=== PATIENT | male | born 1960 | race Caucasian/White ===

== ENCOUNTER 2018-04-03 07:43 | Day surgery (SDC) | payer OTHER ==
[2018-04-01 13:08] VITALS: BMI 25.8
[~2018-04-03 07:43] MED LIST: LACTATED RINGERS 1,000 ML IV SCH; LIDOCAINE 1% 20 ML VIAL (10MG/ML) FOR IV START INTRADERMA PRN
[2018-04-03 08:50] VITALS: TEMP 97.9
[2018-04-03] MEDS ORDERED: PROPOFOL 10 MG/ML 20 ML VIAL IV ONE (09:19)
[2018-04-03] MEDS ORDERED: LIDOCAINE 1% INJ 10MG/ML (20 ML MDV) ONE (09:19)
[2018-04-03 09:44] VITALS: RESP 16
--- NOTE | 2018-04-03 09:48 | P.PCN ---
Date of Procedure: 04/03/18 Procedure(s) Performed: Procedure: Total colonoscopy. Preoperative diagnosis: Screening for neoplasia, patient has family history of colon cancer. Postoperative diagnosis: Sigmoid diverticulosis with no evidence of acute diverticulitis, strictures, polyps or cancer. Preparation: HalfLytely prep. Sedation: Was provided by anesthesia. Brief clinical history: The patient is a 57-year-old male who is scheduled for this evaluation for screening for neoplasia age being his risk factor as well as family history of colon cancer in his mother. The patient had his first exam around age 50. He has no abdominal complaints, bleeding or anemia. Procedure: With the patient on his left lateral decubitus position and after informed consent and adequate sedation, the perianal area was inspected and it did not show any fissures or fistulas. There were no masses felt on digital rectal examination. The Olympus CFH 190L video colonoscope was then inserted in the rectum in the usual fashion and advanced to the cecum. There were several diverticular orifices seen scattered in the sigmoid but I saw no evidence of acute diverticulitis or strictures. No polyps or tumors were seen. I retroflexed the endoscope in the rectum before the endoscope was withdrawn. The patient tolerated the procedure well. Plan: The patient was reassured. Discussed dietary measures. He will follow up with you as planned and I recommended repeat exam in 5 years.
[2018-04-03 10:07] VITALS: BP 125/74
[2018-04-03 10:24] VITALS: PULSE 78
== END 2018-04-03 10:32 | disposition home or self-care (01) ==
LOC: ORWHC2ENDO 07:43
DX: Z12.11 Encounter for screening for malignant neoplasm of colon (principal); K57.30 Diverticulosis of large intestine without perforation or abscess without bleeding; Z80.0 Family history of malignant neoplasm of digestive organs; F17.210 Nicotine dependence, cigarettes, uncomplicated
CPT/HCPCS: 45378; J2001; J2704

== ENCOUNTER → 2018-04-10 | Outpatient (CLI) | payer OTHER ==
--- NOTE | 2018-04-10 16:36 | FL ---
EXAMINATION TYPE: FL barium swallow DATE OF EXAM: 04/10/2018 COMPARISON: None HISTORY: Dysphasia TECHNIQUE: A double air contrast UGI study is performed. FINDINGS: Esophagus dilates to normal caliber has normal contour to the gastroesophageal junction. Gastroesopha geal junction opens to normal caliber. No intraluminal or segmental defects are evident. There is complete stripping of the esophageal bolus the horizontal drinking position. No reflux was e licited. IMPRESSIONS: 1. Normal esophagram.
== END ==
LOC: RADFLWHC 08:04
PROVIDERS: ATTEND Otolaryngology
DX: R13.10 Dysphagia, unspecified (principal)
CPT/HCPCS: 74220

== ENCOUNTER → 2018-08-14 | Outpatient (CLI) | payer OTHER ==
--- NOTE | 2018-08-14 20:56 | CONS ---
CONSULTATION DATE OF SERVICE: 08/14/2018 A 58-year-old gentleman who has been evaluated in the sleep center for possible obstructive sleep apnea-hypopnea syndrome. HISTORY OF PRESENT ILLNESS/SLEEP WAKE EVALUATION: SLEEP SCHEDULE: Patient usual sleep schedule on weekdays from 08:30 to 9:30 p.m. to 4:00 or 5 am and on weekends until 5 or 6:00 am. FALLING ASLEEP: No problems with falling asleep. No TV in the bedroom. DURING SLEEP: The patient sleeps only on the side position and even on the side, he has loud snoring and awakenings from sleep. He has some episodes of choking and nocturia. He wakes up from sleep up to 5 times and has episodes of nocturia up to 3 times. He also has kicking at night, restless legs movement, sometimes his covers out in the morning. DURING THE DAY/SLEEP WAKE EVALUATION: No history of hypnagogic hallucinations, sleep paralysis or cataplexy. Patient feels sleepy during the day. Takes naps on weekend around noon for 1 hour. Lilly Sleepiness Scale significantly increased to 13. PAST MEDICAL HISTORY: Positive for low leg problems with swelling and episodes of infection. PAST SURGICAL HISTORY: None. MEDICATIONS: None at the present time. SOCIAL HISTORY: Positive for smoking about 1-1/2 pack a day for 40 years. The patient continues to smoke. Alcohol consumption occasional socially. FAMILY HISTORY: Hypertension, heart problems, hyperlipidemia, arthritis, snoring, cancer. REVIEW OF SYSTEMS: Multiple awakenings from sleep sleepiness and tiredness during the day. PHYSICAL EXAM: gentleman without distress BP 113/64, HR 69, RR 16, height 70 inches, weight 183 pounds. Body mass index 26.25, temperature 98.6, oxygen saturation at room air 95%. Oropharynx extremely low position of soft palate. Mallampati 4. Restriction of nasal breathing. Neck Supple, no JVD. Thyroid is not palpable. LUNGS Clear to percussion and to auscultation. Good air exchange. No wheezing or rhonchi. HEART S1, S2 regular. No murmurs, gallops, or rubs. ABDOMEN Soft and nontender. Bowel sounds are present. No organomegaly appreciated. EXTREMITIES No clubbing or cyanosis. [employer] Awake, alert, and oriented X3. Cranial nerves 2 to 7 intact. There is no fasciculation or atrophy. noted. No focal deficits observed. IMPRESSION: 1. Loud snoring, awakenings with choking, extremely low position of soft palate, Mallampati 4. Sleepiness, Lilly Sleepiness Scale increased to 13. Obstructive sleep apnea-hypopnea syndrome. 2. Kicking at night and periodic limb movements. 3. Possible restless legs syndrome, symptoms of restless legs. 4. History of infection of the left leg with swelling of ankle area. 5. History of smoking for 60 pack years. PLAN: 1. Polysomnography for evaluation of patient's breathing during sleep. 2. CPAP/BiPAP titration if sleep study confirms obstructive sleep apnea-hypopnea syndrome. 3. Preferable position during sleep on the side. 4. No driving if patient feels any sleepiness. 5. I will see patient for follow up visit to explain results of testing and following plan. Thank you very much for referring this patient for consultation. Sincerely, Kiel Bangura MD, PhD, FAASM Diplomat of [employer] [employer] [facility] [place] MMODL / SOULEYMANE: [id number] /
== END ==
LOC: SLEEP 16:33
PROVIDERS: ATTEND Internal Medicine
DX: G47.33 Obstructive sleep apnea (adult) (pediatric) (principal); Z87.891 Personal history of nicotine dependence; Z86.19 Personal history of other infectious and parasitic diseases
CPT/HCPCS: 99211

== ENCOUNTER → 2020-09-14 | Outpatient (CLI) | payer OTHER ==
--- NOTE | 2020-09-14 16:34 | CTL ---
EXAMINATION TYPE: CT Low Dose Lung DATE OF EXAM ORDERED: 09/14/2020 HISTORY: Personal tobacco use. Lung cancer screening CT DLP: [address] CTDI: 2.26 mGy Automated exposure control for dose reduction was used. SCREENING VISIT: Initial COMPARISON: None TECHNIQUE: Low dose computed tomography scan was performed through the chest at 1 mm thick sections a nd reconstructed images in the coronal plane at [address] DIAGNOSTIC QUALITY: Limited, but interpretable FINDINGS: LUNG NODULES: None. LUNGS: COPD: Severity: None Fibrosis: Severity: None Lymph nodes: None Other findings: None RIGHT PLEURAL SPACE: Effusion: None Calcification: None Thickening: None Pneumothorax: None LEFT PLEURAL SPACE: Effusion: None Calcification: None Thickening: None Pneumothorax: None HEART: Heart Size: Normal Coronary calcification: None Pericardial effusion: None OTHER FINDINGS: Upper abdomen: Normal Bony thorax: Normal Supraclavicular region: Normal Other: Ascending thoracic aorta at the level the main pulmonary artery measures 3.7 cm. The main pul monary artery at the bifurcation measures 2.9 cm. IMPRESSION: No suspicious changes to suggest intrathoracic neoplasm. FOLLOW UP CT CHEST RECOMMENDATION: Follow up low-dose CT chest one year CT LUNG RAD: 1
== END | disposition home or self-care (01) ==
LOC: RADCTMAIN 15:41
PROVIDERS: ATTEND Family Medicine
DX: Z09 Encounter for follow-up examination after completed treatment for conditions other than malignant neoplasm (principal); Z87.891 Personal history of nicotine dependence
CPT/HCPCS: 71271

== ENCOUNTER 2021-08-07 13:50 | Emergency (ER) | payer OTHER ==
[2021-08-07] MEDS ORDERED: ALBUTEROL HFA INHALER INHALATION STA (14:51)
[2021-08-07] MEDS ORDERED: SODIUM CHLORIDE 0.9% 1,000 ML IV STA (14:51)
[2021-08-07] MEDS ORDERED: methylPREDNISolone SOD SUCCI 125 MG/2 ML VIAL IV STA (14:52)
[2021-08-07] MEDS ORDERED: IBUPROFEN 600 MG TAB PO STA (14:52)
[2021-08-07] MEDS ORDERED: ACETAMINOPHEN TAB 500 MG TAB PO STA (14:52)
--- NOTE | 2021-08-07 15:01 | ED ---
General Adult HPI - General Chief complaint: Shortness of Breath Stated complaint: SOB Time Seen by Provider: 08/07/21 14:20 Source: patient, RN notes reviewed, old records reviewed Mode of arrival: wheelchair Limitations: no limitations - History of Present Illness Initial comments: This is a 60-year-old male who presents to the emergency department complaining of shortness of breath and body aches as well as diarrhea. Patient states he had COVID over a year ago but he did not get vaccinated. Patient denies any fever but states he does have over the chills. Patient states he has a little bit of cough and some congestion as well per patient denies chest pain. Patient denies any abdominal pain patient denies nausea vomiting. Patient denies any leg swelling or calf tenderness. - Related Data Previous Rx's Medication Instructions Recorded Albuterol Inhaler [Ventolin Hfa 2 puff INHALATION RT-QID #18 gm 08/07/21 Inhaler] Oseltamivir [Tamiflu] 75 mg PO Q12HR #10 cap 08/07/21 predniSONE [Deltasone] 40 mg PO DAILY #8 tab 08/07/21 Allergies Allergy/AdvReac Type Severity Reaction Status Date / Time Penicillins Allergy Rash/Hives Verified 08/07/21 14:22 Review of Systems ROS Statement: Those systems with pertinent positive or pertinent negative responses have been documented in the HPI. ROS Other: All systems not noted in ROS Statement are negative. Past Medical History Past Medical History: Thyroid Disorder History of Any Multi-Drug Resistant Organisms: None Reported Additional Past Surgical History / Comment(s): COLONOSCOPY Past Anesthesia/Blood Transfusion Reactions: No Reported Reaction Past Psychological History: No Psychological Hx Reported Smoking Status: Current every day smoker Past Alcohol Use History: Occasional Past Drug Use History: None Reported - Past Family History Father Family Medical History: Cancer Additional Family Medical History / Comment(s): LEUKEMIA Mother Family Medical History: Cancer Additional Family Medical History / Comment(s): COLON General Exam - General Exam Comments Initial Comments: GENERAL: Patient is well-developed and well-nourished. Patient is nontoxic and well- hydrated and is in mild distress. ENT: Neck is soft and supple. No significant lymphadenopathy is noted. Oropharynx is clear. Moist mucous membranes. Neck has full range of motion without eliciting any pain. EYES: The sclera were anicteric and conjunctiva were pink and moist. Extraocular movements were intact and pupils were equal round and reactive to light. Eyelids were unremarkable. PULMONARY: Patient has diffuse wheezing. CARDIOVASCULAR: There is a regular rate and rhythm without any murmurs gallops or rubs. Femoral pulses are equal bilaterally ABDOMEN: Soft and nontender with normal bowel sounds. SKIN: Skin is clear with no lesions or rashes and otherwise unremarkable. NEUROLOGIC: Patient is alert and oriented x3. Cranial nerves II through XII are grossly intact. Motor and sensory are also intact. Normal speech, volume and content. Symmetrical smile. MUSCULOSKELETAL: Normal extremities with adequate strength and full range of motion. No lower extremity swelling or edema. No calf tenderness. LYMPHATICS: No significant lymphadenopathy is noted PSYCHIATRIC: Normal psychiatric evaluation. Limitations: no limitations Course Vital Signs 08/07/21 08/07/21 08/07/21 14:19 14:50 14:52 Temperature 99.5 F 101.6 F H Pulse Rate 83 Respiratory 18 20 Rate O2 Sat by Pulse 90 L Oximetry Medical Decision Making - Medical Decision Making EKG shows sinus rhythm at 80 bpm HI interval 129 QRS is 97 Q-T intervals 362 QTC is 397. Patient's EKG shows no ST segment elevation or depression. Patient's chest x-ray showed no acute abnormality. Patient received 2 puffs on an inhaler prior to discharge did improve his symptoms. Patient also received steroids. Patient had influenza A. - Lab Data Result diagrams: 08/07/21 15:08 Lab Results 08/07/21 08/07/21 08/07/21 Range/Units 14:28 15:08 15:08 WBC 5.8 (3.8-10.6) k/uL RBC 4.91 (4.30-5.90) m/uL Hgb 16.0 (13.0-17.5) gm/dL Hct 49.0 (39.0-53.0) % MCV 99.8 (80.0-100.0) fL MCH 32.5 (25.0-35.0) pg MCHC 32.6 (31.0-37.0) g/dL RDW 13.0 (11.5-15.5) % Plt Count 130 L (150-450) k/uL MPV 7.2 Neutrophils % 81 % Lymphocytes % 7 % Monocytes % 8 % Eosinophils % 1 % Basophils % 1 % Neutrophils # 4.7 (1.3-7.7) k/uL Lymphocytes # 0.4 L (1.0-4.8) k/uL Monocytes # 0.5 (0-1.0) k/uL Eosinophils # 0.0 (0-0.7) k/uL Basophils # 0.1 (0-0.2) k/uL PT 10.5 (9.0-12.0) sec INR 1.0 (<1.2) APTT 25.2 (22.0-30.0) sec Influenza Type A (PCR) Detected A (Not Detectd) Influenza Type B (PCR) Not Detected (Not Detectd) RSV (PCR) Not Detected (Not Detectd) SARS-CoV-2 (PCR) Not Detected (Not Detectd) Disposition Clinical Impression: Influenza A, Acute bronchospasm Disposition: HOME SELF-CARE Instructions (If sedation given, give patient instructions): Bronchospasm (ED) Prescriptions: predniSONE [Deltasone] 40 mg PO DAILY #8 tab Oseltamivir [Tamiflu] 75 mg PO Q12HR #10 cap Albuterol Inhaler [Ventolin Hfa Inhaler] 2 puff INHALATION RT-QID #18 gm Is patient prescribed a controlled substance at d/c from ED?: No Referrals: [facility],Clinic [Primary Care Provider] - 1-2 days Time of Disposition: 15:33
[2021-08-07 15:20] LABS: Basophils # (A) 0.1 k/uL (0-0.2); Basophils % (A) 1 %; Eosinophils % (A) 1 %; Lymphocytes # (A) 0.4 k/uL (1.0-4.8); Lymphocytes % (A) 7 %; MCH 32.5 pg (25.0-35.0); MCHC 32.6 g/dL (31.0-37.0); MCV 99.8 fL (80.0-100.0); Mean Platelet Volume 7.2; Monocytes # (A) 0.5 k/uL (0-1.0); Monocytes % (A) 8 %; Neutrophils # (A) 4.7 k/uL (1.3-7.7); Neutrophils % (A) 81 %; Platelet Count 130 k/uL (150-450); RBC 4.91 m/uL (4.30-5.90); WBC 5.8 k/uL (3.8-10.6)
[2021-08-07 15:26] LABS: Partial Thromboplastin Time 25.2 sec (22.0-30.0); Prothrombin Time 10.5 sec (9.0-12.0)
[2021-08-07 15:38] LABS: ALT 21 U/L (4-49); AST 29 U/L (17-59); African American GFR (CKD) >90 (>60 ml/min/1.73 sqM); Albumin 4.4 g/dL (3.5-5.0); Alkaline Phosphatase 69 U/L (38-126); Anion Gap 8 mmol/L; Blood Urea Nitrogen 16 mg/dL (9-20); Calcium 8.6 mg/dL (8.4-10.2); Carbon Dioxide 26 mmol/L (22-30); Chloride 100 mmol/L (98-107); Glucose 118 mg/dL (74-99); Magnesium 2.1 mg/dL (1.6-2.3); Non-African American GFR(CKD) 86 (>60 ml/min/1.73 sqM); Potassium 4.5 mmol/L (3.5-5.1); Sodium 134 mmol/L (137-145); Total Bilirubin 0.8 mg/dL (0.2-1.3)
--- NOTE | 2021-08-07 15:39 | XR ---
EXAMINATION TYPE: XR chest 2V DATE OF EXAM: 08/07/2021 COMPARISON: X-ray dated 11/18/2013 HISTORY: Difficulty breathing TECHNIQUE: Frontal and lateral views of the chest are obtained. FINDINGS: Suspected COPD changes, please correlate with pulmonary function tests. Questionable subtle infiltrat ion versus artifact in the left lower lung zone. Grossly unremarkable lungs otherwise. No sizable pleural effusion or definite pneumothorax. No cardio megaly. Degenerative changes of the lower cervical spine. IMPRESSION: As above.
[2021-08-07 16:25] VITALS: BP 112/63; PULSE 89; RESP 18; TEMP 99.5
== END 2021-08-07 16:24 | disposition home or self-care (01) ==
LOC: EC 13:50
DX: J10.1 Influenza due to other identified influenza virus with other respiratory manifestations (principal); J98.01 Acute bronchospasm; Z20.822 Contact with and (suspected) exposure to COVID-19; F17.200 Nicotine dependence, unspecified, uncomplicated
CPT/HCPCS: 36415; 71046; 80053; 83605; 83735; 84484; 85025; 85610; 85730; 87636; 93005; 94640; 96361; 96374; 99285

== ENCOUNTER 2021-08-22 21:38 | Observation (INO) | payer OTHER ==
[2021-08-22] MEDS ORDERED: HYDROmorphone 1 MG/ML 1 ML SYRINGE IVP STA (22:05)
[2021-08-22] MEDS ORDERED: ALBUTEROL NEBULIZED 2.5 MG/3 ML INHALATION STA (22:05)
[2021-08-22 22:28] LABS: Basophils % (A) 1 %; Eosinophils # (A) 0.1 k/uL (0-0.7); Eosinophils % (A) 1 %; HCT 48.8 % (39.0-53.0); HGB 15.8 gm/dL (13.0-17.5); Lymphocytes # (A) 1.9 k/uL (1.0-4.8); Lymphocytes % (A) 29 %; MCH 33.2 pg (25.0-35.0); MCHC 32.4 g/dL (31.0-37.0); MCV 102.5 fL (80.0-100.0); Macrocytosis Slight; Mean Platelet Volume 7.1; Monocytes # (A) 0.5 k/uL (0-1.0); Monocytes % (A) 8 %; Neutrophils # (A) 3.8 k/uL (1.3-7.7); Neutrophils % (A) 59 %; Platelet Count 203 k/uL (150-450); RBC 4.76 m/uL (4.30-5.90); RDW 12.9 % (11.5-15.5); WBC 6.4 k/uL (3.8-10.6)
[2021-08-22 22:36] LABS: ALT 42 U/L (4-49); AST 22 U/L (17-59); African American GFR (CKD) >90 (>60 ml/min/1.73 sqM); Albumin 4.1 g/dL (3.5-5.0); Alkaline Phosphatase 113 U/L (38-126); Anion Gap 4 mmol/L; Blood Urea Nitrogen 13 mg/dL (9-20); Calcium 8.5 mg/dL (8.4-10.2); Carbon Dioxide 31 mmol/L (22-30); Chloride 104 mmol/L (98-107); Glucose 117 mg/dL (74-99); Magnesium 2.2 mg/dL (1.6-2.3); Non-African American GFR(CKD) >90 (>60 ml/min/1.73 sqM); Potassium 4.1 mmol/L (3.5-5.1); Sodium 139 mmol/L (137-145); Total Bilirubin 0.4 mg/dL (0.2-1.3); Total Protein 6.7 g/dL (6.3-8.2)
--- NOTE | 2021-08-22 22:36 | ED ---
Chest Pain HPI - General Chief Complaint: Chest Pain Stated Complaint: IONA,Chest pain Time Seen by Provider: 08/22/21 21:50 Source: patient Mode of arrival: wheelchair Limitations: no limitations - History of Present Illness Initial Comments: This patient is a 61-year-old who presents to be evaluated for left-sided chest pain. He states that he works nights so he woke up tonight for work and noticed that he was having left-sided chest pain. It is worse when he takes a deep breath. He states that it is sharp, constant and severe. He has been having cough but states that he always has a smoker's cough. Cough is nonproductive. He is denying dyspnea. No diaphoresis, palpitations, nausea or vomiting. MD Complaint: chest pain -: minutes(s) Onset: during rest Pain Location: left chest Pain Radiation: none Severity: severe Quality: sharp Consistency: constant Improves With: nothing Worsens With: nothing Other Symptoms: cough Treatments Prior to Arrival: none - Related Data Home Medications Medication Instructions Recorded Confirmed Fluticasone/Salmeterol [Advair 1 puff PO RT-BID 08/22/21 08/22/21 250-50 Diskus] Levothyroxine Sodium [Synthroid] 50 mcg PO DAILY 08/22/21 08/22/21 Previous Rx's Medication Instructions Recorded Albuterol Inhaler [Ventolin Hfa 2 puff INHALATION RT-QID #18 gm 08/07/21 Inhaler] Allergies Allergy/AdvReac Type Severity Reaction Status Date / Time Penicillins Allergy Rash/Hives Verified 08/22/21 22:36 Review of Systems ROS Statement: Those systems with pertinent positive or pertinent negative responses have been documented in the HPI. ROS Other: All systems not noted in ROS Statement are negative. Constitutional: Denies: fever, chills ENT: Denies: congestion Respiratory: Reports: cough. Denies: dyspnea, wheezes, hemoptysis, stridor Cardiovascular: Reports: chest pain. Denies: palpitations, orthopnea, edema, syncope Gastrointestinal: Denies: abdominal pain, nausea, vomiting, diarrhea Genitourinary: Denies: dysuria, hematuria Musculoskeletal: Denies: back pain Skin: Denies: rash Neurological: Denies: headache, weakness EKG Findings - EKG Results: EKG: interpreted by JATIN HAWKISNL, sinus rhythm (70 bpm), normal axis, normal QRS, normal ST/T, no acute changes Past Medical History Past Medical History: Thyroid Disorder History of Any Multi-Drug Resistant Organisms: None Reported Additional Past Surgical History / Comment(s): COLONOSCOPY Past Anesthesia/Blood Transfusion Reactions: No Reported Reaction Past Psychological History: No Psychological Hx Reported Smoking Status: Current every day smoker Past Alcohol Use History: Occasional Past Drug Use History: None Reported - Past Family History Father Family Medical History: Cancer Additional Family Medical History / Comment(s): LEUKEMIA Mother Family Medical History: Cancer Additional Family Medical History / Comment(s): COLON General Exam Limitations: no limitations General appearance: alert, in no apparent distress Head exam: Present: atraumatic, normocephalic Eye exam: Present: normal appearance. Absent: scleral icterus, conjunctival injection Neck exam: Present: normal inspection Respiratory exam: Present: wheezes, chest wall tenderness. Absent: respiratory distress, rales, rhonchi, stridor, accessory muscle use, decreased breath arun nds, prolonged expiratory Cardiovascular Exam: Present: regular rate, normal rhythm, normal heart sounds. Absent: systolic murmur, diastolic murmur, rubs, gallop GI/Abdominal exam: Present: soft. Absent: distended, tenderness, guarding, rebound, rigid, mass Extremities exam: Present: normal inspection, normal capillary refill. Absent: pedal edema, calf tenderness Back exam: Present: normal inspection. Absent: CVA tenderness (R), CVA tenderness (L) Neurological exam: Present: alert Skin exam: Present: warm, dry, intact, normal color. Absent: rash Course Vital Signs 08/22/21 08/22/21 08/22/21 21:39 22:42 23:10 Temperature 98 F Pulse Rate 83 70 58 L Respiratory 16 Rate Blood Pressure 164/120 145/74 O2 Sat by Pulse 96 95 Oximetry 08/22/21 08/22/21 08/23/21 23:20 23:54 02:00 Temperature Pulse Rate 60 71 74 Respiratory Rate Blood Pressure 114/65 111/64 O2 Sat by Pulse 95 Oximetry Critical Care Time Critical Care Time: Yes (35 minutes) Disposition Clinical Impression: Pulmonary embolism Disposition: ADMITTED IP TO THIS HOSP Condition: Good Is patient prescribed a controlled substance at d/c from ED?: No Time of Disposition: 01:06
--- NOTE | 2021-08-22 22:48 | XR ---
EXAMINATION TYPE: XR chest 2V DATE OF EXAM: 08/22/2021 COMPARISON: 08/07/2021 HISTORY: Chest pain TECHNIQUE: 2 views FINDINGS: Heart is normal. Lungs are clear. Diaphragm is normal. Bony thorax is intact IMPRESSION: Normal chest. No change.
[2021-08-22 22:49] LABS: INR 0.9 (<1.2); Partial Thromboplastin Time 23.4 sec (22.0-30.0); Prothrombin Time 10.3 sec (9.0-12.0)
--- NOTE | 2021-08-23 00:24 | CT ---
EXAMINATION TYPE: CT chest angio for PE DATE OF EXAM: 08/22/2021 COMPARISON: None HISTORY: IONA CT DLP: 436 mGycm Automated exposure control for dose reduction was used. CONTRAST: Performed with IV Contrast, patient injected with 70 mL of Isovue 370. There are Three-D postprocessed images. Heart is normal. There is no pericardial effusion. No pleural effusion. No pneumothorax. The lungs ar e clear of consolidation. There is no evidence of a pulmonary mass. There is no mediastinal adenopathy. There are no hilar masses. There is normal contrast opacification of the pulmonary arteries. There are no filling defects. The heart size is normal. No pericardial effusion. The thoracic spine is intact. No compression fract ure. IMPRESSION: No evidence of pulmonary embolism. No suspicious pulmonary mass. Mild pulmonary emphysema. Bullous di sease seen at the lung apices.
[2021-08-23] MEDS ORDERED: HEPARIN SODIUM 1,000 UN/ML (10ML VL) IV ONE (01:18)
[2021-08-23] MEDS ORDERED: HEPARIN SODIUM 1,000 UN/ML (10ML VL) IV PRN (01:18)
[2021-08-23] MEDS ORDERED: ACETAMINOPHEN TAB 325 MG TAB PO PRN (01:23)
[2021-08-23] MEDS ORDERED: ONDANSETRON 4 MG/2 ML VIAL IVP PRN (01:23)
[2021-08-23] MEDS ORDERED: NALOXONE 0.4 MG/ML 1 ML VIAL IV PRN (01:23)
[2021-08-23] MEDS ORDERED: HYDROmorphone 1 MG/ML 1 ML SYRINGE IVP STA (01:29)
[2021-08-23] MEDS ORDERED: HEPARIN SOD,PORK IN 0.45% NACL 25,000 UNIT in 0.45% NACL 1 250ML.BAG IV SCH (01:30)
[2021-08-23 01:55] LABS: Basophils # (A) 0.1 k/uL (0-0.2); Basophils % (A) 1 %; Eosinophils # (A) 0.1 k/uL (0-0.7); Eosinophils % (A) 1 %; HCT 47.6 % (39.0-53.0); HGB 14.9 gm/dL (13.0-17.5); Lymphocytes # (A) 1.1 k/uL (1.0-4.8); Lymphocytes % (A) 16 %; MCHC 31.3 g/dL (31.0-37.0); MCV 102.2 fL (80.0-100.0); Monocytes # (A) 0.5 k/uL (0-1.0); Monocytes % (A) 7 %; Neutrophils # (A) 5.1 k/uL (1.3-7.7); Neutrophils % (A) 74 %; Platelet Count 169 k/uL (150-450); RBC 4.66 m/uL (4.30-5.90); RDW 12.2 % (11.5-15.5); WBC 6.9 k/uL (3.8-10.6)
[2021-08-23 02:10] LABS: INR 0.9 (<1.2); Partial Thromboplastin Time 22.7 sec (22.0-30.0)
--- NOTE | 2021-08-23 03:30 | P.HPIM ---
History of Present Illness H&P Date: 08/23/21 Patient is a 61-year-old male with a PMH of hypothyroidism, tobacco abuse, and COPD who presents to the emergency room with complaints of sudden onset of chest pain. Patient reports that he was in his usual state of health, at home when he suddenly developed severe left lateral pleuritic chest discomfort, 10 out of 10. The patient reports that the pain has been constant, acutely pleuritic in [place] ure, without associated nausea, diaphoresis, or palpitations. Reports that the pain has persisted since arrival. Denies any recent travel, lower extremity swelling, lower extremity pain. Also denies fever, chills, cough. Chest CTA in the emergency room revealed findings consistent with a pulmonary embolism with an EKG showing sinus rhythm at 70 bpm with a no ST/T-wave changes noted as reviewed by me. Laboratory evaluation was remarkable for d-dimer 2.69 with troponin less than 0.012. Review of systems: Pertinent positives and negatives as discussed in HPI, a complete review of systems was performed and all other systems are negative. Physical examination: General: non toxic, no distress, appears at stated age, normal weight Derm: no unusual rashes/lesions no unusual ecchymoses, warm, dry Head: atraumatic, normocephalic, symmetric Eyes: EOMI, no lid lag, anicteric sclera, pupils equal round reactive to light ENT: Nose and ears atraumatic, no thrush, no pharyngeal erythema Neck: No thyromegaly, no cervical lymphadenopathy, trachea midline, supple Mouth: no lip lesion, mucus membranes moist Cardiovascular: S1S2 reg, no murmur, positive posterior tibial pulse bilateral, no edema, capillary refill less than 2 seconds Lungs: CTA bilateral, no rhonchi, no rales , no accessory muscle use, left lateral chest wall tenderness Abdominal: soft, nontender to palpation, no guarding, no appreciable organomegaly, normal bowel sounds Ext: no gross muscle atrophy, muscle strength 5 out of 5 in all 4 extremities grossly, no contractures, Neuro: CN II-XI grossly intact, light touch intact all 4 extremities, finger to nose within normal limits, Psych: Alert, oriented, appropriate affect Assessment/plan Acute PE -Continue with heparin infusion -Patient would likely benefit from outpatient hematology evaluation for duration of therapy and hypercoagulable workup as PE is unprovoked -Supplemental oxygen -Pain control Chronic conditions: Hypothyroidism, COPD -Continue with home meds DVT prophylaxis -Heparin infusion The patient is admitted with an anticipated less than 2 midnight stay for evaluation of acute PE. CODE STATUS: Full code Discussed with: Patient Anticipated discharge date: In a.m. Anticipated discharge place: Home Past Medical History Past Medical History: Thyroid Disorder History of Any Multi-Drug Resistant Organisms: None Reported Additional Past Surgical History / Comment(s): COLONOSCOPY Past Anesthesia/Blood Transfusion Reactions: No Reported Reaction Past Psychological History: No Psychological Hx Reported Smoking Status: Current every day smoker Past Alcohol Use History: Occasional Past Drug Use History: None Reported - Past Family History Father Family Medical History: Cancer Additional Family Medical History / Comment(s): LEUKEMIA Mother Family Medical History: Cancer Additional Family Medical History / Comment(s): COLON Medications and Allergies Home Medications Medication Instructions Recorded Confirmed Type Albuterol Inhaler [Ventolin Hfa 2 puff INHALATION RT-QID #18 gm 08/07/21 08/22/21 Rx Inhaler] Fluticasone/Salmeterol [Advair 1 puff PO RT-BID 08/22/21 08/22/21 History 250-50 Diskus] Levothyroxine Sodium [Synthroid] 50 mcg PO DAILY 08/22/21 08/22/21 History Allergies Allergy/AdvReac Type Severity Reaction Status Date / Time Penicillins Allergy Rash/Hives Verified 08/22/21 22:36 Physical Exam Vitals: Vital Signs Temp Pulse Resp BP Pulse Ox 08/23/21 02:00 74 111/64 08/22/21 23:54 71 114/65 95 08/22/21 23:20 60 08/22/21 23:10 58 L 08/22/21 22:42 70 145/74 95 08/22/21 21:39 98 F 83 16 164/120 96 Intake and Output 08/22/21 08/22/21 08/23/21 14:59 22:59 06:59 Other: Weight 81.647 kg Results CBC & Chem 7: 08/23/21 01:39 08/22/21 22:05 Labs: Abnormal Lab Results - Last 24 Hours (Table) 08/22/21 08/22/21 08/22/21 Range/Units 22:05 22:05 22:05 MCV 102.5 H (80.0-100.0) fL D-Dimer 2.69 H (<0.60) mg/L FEU Carbon Dioxide 31 H (22-30) mmol/L Glucose 117 H (74-99) mg/dL 08/23/21 Range/Units 01:39 MCV 102.2 H (80.0-100.0) fL D-Dimer (<0.60) mg/L FEU Carbon Dioxide (22-30) mmol/L Glucose (74-99) mg/dL
[2021-08-23] MEDS: SODIUM CHLORIDE 0.9% 1,000 ML IV SCH ×3 (06:33→19:20)
[2021-08-23] MEDS: LEVOTHYROXINE 50 MCG TAB PO SCH (06:35)
[2021-08-23] MEDS: HYDROmorphone 1 MG/ML 1 ML SYRINGE IVP PRN ×2 (06:36→16:20)
[2021-08-23] MEDS: ALBUTEROL NEBULIZED 2.5 MG/3 ML INHALATION SCH ×4 (07:26→21:01)
[2021-08-23] MEDS: SYMBICORT 80-4.5 MCG INHALER INHALATION SCH ×2 (07:26→21:01)
[2021-08-23] MEDS: FAMOTIDINE 20 MG TAB PO SCH ×2 (09:17→20:51)
[2021-08-23] MEDS: APIXABAN 5 MG TAB PO SCH ×2 (12:15→20:51)
[2021-08-23] MEDS ORDERED: HYDROcodone/APAP 5-325MG 1 EACH TAB PO PRN (15:55)
--- NOTE | 2021-08-23 18:39 | P.PN ---
Subjective Progress Note Date: 08/23/21 Hospital course: Patient is a 61-year-old male with a past medical history of COPD not on home oxygen dependent, hypothyroidism, and nicotine dependence smoking 2-3 packs of cigarettes daily times greater than 40 years. Patient presented to the emergency department with chief complaint of sudden onset chest pain. He underwent full evaluation. EKG showing normal sinus rhythm at 70 bpm with no noted T-wave or ST abnormalities. Troponin negative at less than 0.012. CBC unremarkable. CMP unremarkable with the exception of hypercarbia with CO2 of 31. D-dimer elevated at 2.69. CT completed revealing linear filling defect in the left lower lobe pulmonary artery and the arterial basal segment consistent with pulmonary emboli. Chest x-ray negative for acute cardiopulmonary process. Patient started on heparin infusion and admitted under our services. IV heparin transition to oral anticoagulation with Eliquis. Echocardiogram completed and pending results. Patient does have risk factors of cigarette smoking and history of recent long car ride traveling up north 4 hours in each direction, 3 weeks ago. Physical exam: Vital signs reviewed and stable. General: Nontoxic, no distress and appears stated age. Derm: Skin warm and dry, normal coloration for ethnicity. Head: Atraumatic, normocephalic and symmetric. Eyes: EOMs intact, no lid lag, and anicteric sclera Mouth: no lip lesions, mucus membranes moist Cardiovascular: regular rate and rhythm with normal S1S2, no murmur, positive posterior tibial pulses bilaterally, and cap refill < 2 seconds. Lungs: Respirations even, regular, and unlabored on room air. Lungs CTA bilaterally, no rhonchi, no rales, no wheezing, and no accessory muscle usage. Abdominal: soft, nontender to palpation, no guarding, no appreciable organomegaly Ext: ROM intact. No gross muscle atrophy, no edema, no contractures. Left lower extremity 1-2+ pitting edema. Neuro: Speech clear, face symmetrical and CN II-XII grossly intact with no noted focal neuro deficits Psych: Alert and oriented to person, place, time, and situation. Appropriate and pleasant affect. Assessment and Plan of Care: Acute PE - IV heparin transitioned to oral anticoagulation with Eliquis. -Recommend outpatient hematology after discharge. -Symptomatic care and pain management. -Consult pulmonary -Doppler left lower extremity secondary to swelling. COPD with ongoing tobacco use -Continue with Advair and duo nebs as needed. -Recommend smoking cessation. Hypothyroidism -Continue daily medication regimen with levothyroxine. CODE STATUS: Full code DVT prophylaxis: Jose Discussed with: Patient and RN Anticipated discharge date: Tomorrow morning Anticipated discharge place: Home A total of 37 minutes was spent on the care of this complex patient more than 50% of the time was spent in counseling and care coordination. Antione Grissom NP rendered care for this patient independently, reviewed the findings and plan as documented in the note above. I did not physically speak with or examine the patient on this date. Objective - Vital Signs Vital signs: Vital Signs Temp 98 F 08/22/21 21:39 Pulse 58 L 08/23/21 15:31 Resp 18 08/23/21 10:45 BP 95/63 08/23/21 10:45 Pulse Ox 96 08/23/21 10:45 FiO2 Intake & Output 08/22/21 08/23/21 08/23/21 18:59 06:59 18:59 Intake Total 94.544 Balance 94.544 Weight 81.647 kg Intake: Intake, IV Titration 94.544 Amount Heparin Sod,Pork in 0.45% 94.544 NaCl 25,000 unit In 0.45 % NaCl 1 250ml.bag @ 18 UNITS/KG/HR 14.696 mls/hr IV .[id number] [facility] Rx#: [id number] - Labs CBC & Chem 7: 08/23/21 01:39 08/22/21 22:05 Labs: Abnormal Lab Results - Last 24 Hours (Table) 08/22/21 08/22/21 08/22/21 Range/Units 22:05 22:05 22:05 MCV 102.5 H (80.0-100.0) fL APTT (22.0-30.0) sec D-Dimer 2.69 H (<0.60) mg/L FEU Carbon Dioxide 31 H (22-30) mmol/L Glucose 117 H (74-99) mg/dL 08/23/21 08/23/21 Range/Units 01:39 07:44 MCV 102.2 H (80.0-100.0) fL APTT 74.7 H (22.0-30.0) sec D-Dimer (<0.60) mg/L FEU Carbon Dioxide (22-30) mmol/L Glucose (74-99) mg/dL
[2021-08-23] MEDS: NICOTINE 21MG/24HR PATCH TRANSDERM SCH (19:20)
--- NOTE | 2021-08-23 21:22 | US ---
EXAMINATION TYPE: US venous doppler duplex LE LT DATE OF EXAM: 08/23/2021 7:46 PM COMPARISON: CT 08/22/21 CLINICAL HISTORY: LLE edema. Acute PE, patient has left lower extremity pain SIDE PERFORMED: Left TECHNIQUE: The lower extremity deep venous system is examined utilizing real time linear array sonog violeta with graded compression, doppler sonography and color-flow sonography. VESSELS IMAGED: Common Femoral Vein Deep Femoral Vein Greater Saphenous Vein * Femoral Vein Popliteal Vein Small Saphenous Vein * Proximal Calf Veins (* superficial vessels) Left Leg: Superficial thrombus within the left GSV below the knee. IMPRESSION: No evidence of deep vein thrombosis. There are some superficial vein thrombosis in the lo ng saphenous vein.
[2021-08-24] MEDS: SODIUM CHLORIDE 0.9% 1,000 ML IV SCH ×2 (00:04→02:40)
[2021-08-24 05:15] VITALS: RESP 18
[2021-08-24] MEDS: LEVOTHYROXINE 50 MCG TAB PO SCH (05:50)
[2021-08-24] MEDS: ALBUTEROL NEBULIZED 2.5 MG/3 ML INHALATION SCH ×3 (07:35→15:01)
[2021-08-24] MEDS: SYMBICORT 80-4.5 MCG INHALER INHALATION SCH (07:35)
[2021-08-24] MEDS: NICOTINE 21MG/24HR PATCH TRANSDERM SCH (08:43)
[2021-08-24] MEDS: APIXABAN 5 MG TAB PO SCH (08:43)
[2021-08-24] MEDS: FAMOTIDINE 20 MG TAB PO SCH (08:43)
--- NOTE | 2021-08-24 10:18 | CA ---
Transthoracic Echo Report Name: Charli Sanchez Age: 61 Gender: M : 1960 Exam Date: 08/23/2021 13:22 Exam Location: [facility] Ht (in): 71 Wt (lb): 180 Ordering Physician: Antione Grissom Attending/Referring Phys: Information Management Manager Lisa Baumann RDCS Procedure CPT: Indications: PE Cardiac Hx: Technical Quality: Very technically difficult study Contrast 1: Lumason Total Dose (mL): 1 Contrast 2: Total Dose (mL): MEASUREMENTS (Male / Female) Normal Values 2D ECHO LV Diastolic Diameter PLAX 3.9 cm 4.2 - 5.9 / 3.9 - 5.3 cm LV Systolic Diameter PLAX 2.9 cm IVS Diastolic Thickness 1.1 cm 0.6 - 1.0 / 0.6 - 0.9 cm LVPW Diastolic Thickness 1.3 cm 0.6 - 1.0 / 0.6 - 0.9 cm LV Relative Wall Thickness 0.6 M-MODE Aortic Root Diameter MM 3.5 cm LA Systolic Diameter MM 2.8 cm LA Ao Ratio MM 0.8 MV E Point Septal Separation 2.0 cm AV Cusp Separation MM 2.4 cm DOPPLER AV Peak Velocity 87.8 cm/s AV Peak Gradient 3.1 mmHg MV Area PHT 1.8 cm??? MR Peak Velocity 89.6 cm/s MR Peak Gradient 3.2 mmHg Mitral E Point Velocity 60.1 cm/s Mitral A Point Velocity 51.9 cm/s Mitral E to A Ratio 1.2 MV Deceleration Time 417.3 ms TR Peak Velocity 72.3 cm/s TR Peak Gradient 2.1 mmHg Right Ventricular Systolic Press 7.1 mmHg FINDINGS Left Ventricle Mildly increased septal wall thickness. Left ventricular ejection fraction is estimated at 55-60_ %. Left ventricle not well visualized utilized lumason. Right Ventricle Right ventricle not well visualized. Unable to do RV strain. Right ventricular systolic pressure within normal limits. Right Atrium Right atrium not well visualized. Left Atrium Normal left atrial size. Mitral Valve Mitral valve not well visualized. Trace mitral regurgitation. Aortic Valve Aortic valve not well visualized. No aortic regurgitation. Tricuspid Valve Tricuspid valve not well visualized. Pulmonic Valve Pulmonic valve not well visualized. Pericardium Unable to visualize Aorta Aortic root and proximal ascending aorta not well visualized. CONCLUSIONS #1. Technically suboptimal study with full visualization of cardiac structure and function. #2. Even with use of lumison, the left ventricle cannot be adequately visualized. Function appears to be fair. Previewed by: Dr. Kailey Sweeeny MD (Electronically Signed) Final Date: 24 August 2021 10:17
--- NOTE | 2021-08-24 12:49 | P.CNPUL ---
History of Present Illness Consult date: 08/24/21 Reason for consult: pulmonary embolism History of present illness: 61-year-old male patient, a chronic smoker with known history of COPD, being f [facility]owed [facility]. The patient came into the hospital because of 2-3 week history of a pleuritic left-sided chest pain that was progressively getting worse along with some limited shortness of breath. The patient was found to be hypoxemic. D-dimer was elevated at 2.69. Troponin was at 0.12. CT angiogram of the chest was done and the patient was found to have several segmental pulmonary emboli the left lower lobe along with some background COPD changes. The patient also had a Doppler of the lower extremity that showed no evidence of any DVT. There was some superficial vein thrombosis in the long saphenous vein. The patient was started on IV heparin. Echocardiogram was done and the patient has a ejection fraction of 55-60%. No evidence of any pulmonary hypertension. The patient remains hemodynamically stable. No identifiable risk factors regarding this pulmonary embolism. No sedentary lifestyle and the patient works for a [email or web address] company and is quite active. No trauma. No recent orthopedic surgeries. No sedentary lifestyle. No travels. No leg swelling. His symptoms are improving for now. He is on 2 L of O2 nasal cannula and he will be checked on room air. No personal or family history of DVT or pulmonary embolism. Review of Systems All systems: negative Eyes: denies as per HPI, denies blurred vision, denies bulging eye, denies decreased vision, denies diplopia, denies discharge, denies dry eye, denies irritation, denies itching, denies pain, denies photophobia, denies loss of peripheral vision, denies loss of vision, denies tunnel vision/blind spots Ears: deny: decreased hearing, ear discharge, earache, tinnitus Ears, nose, mouth and throat: Reports as per HPI Breasts: absent: as per HPI, gynecomastia Cardiovascular: Reports as per HPI, Reports shortness of breath Respiratory: Reports pleurisy Gastrointestinal: Reports as per HPI Genitourinary: Reports as per HPI Musculoskeletal: Reports as per HPI Musculoskeletal: absent: ankle pain, ankle stiffness, ankle swelling Integumentary: Reports as per HPI Neurological: Reports as per HPI Psychiatric: Reports as per HPI Endocrine: Reports as per HPI Hematologic/Lymphatic: Reports as per HPI Allergic/Immunologic: Reports as per HPI Past Medical History Past Medical History: COPD, Pulmonary Embolus (PE), Thyroid Disorder History of Any Multi-Drug Resistant Organisms: None Reported Additional Past Surgical History / Comment(s): COLONOSCOPY Past Anesthesia/Blood Transfusion Reactions: No Reported Reaction Past Psychological History: No Psychological Hx Reported Smoking Status: Former smoker Past Alcohol Use History: Occasional Additional Past Alcohol Use History / Comment(s): SMOKES ABOUT 1 PPD SINCE AGE 18 Past Drug Use History: None Reported - Past Family History Father Family Medical History: Cancer Additional Family Medical History / Comment(s): LEUKEMIA Mother Family Medical History: Cancer Additional Family Medical History / Comment(s): COLON Medications and Allergies Home Medications Medication Instructions Recorded Confirmed Type Albuterol Inhaler [Ventolin Hfa 2 puff INHALATION RT-QID #18 gm 08/07/21 08/22/21 Rx Inhaler] Fluticasone/Salmeterol [Advair 1 puff PO RT-BID 08/22/21 08/22/21 History 250-50 Diskus] Levothyroxine Sodium [Synthroid] 50 mcg PO DAILY 08/22/21 08/22/21 History Apixaban [Eliquis Starter Pack 5 - 10 mg PO DIRECTED 30 Days 08/23/21 Rx (for VTE)] #1 each Allergies Allergy/AdvReac Type Severity Reaction Status Date / Time Penicillins Allergy Rash/Hives Verified 08/22/21 22:36 Physical Exam Vitals: Vital Signs Temp Pulse Pulse Pulse Resp BP Pulse Ox 08/24/21 12:34 98 08/24/21 11:49 72 08/24/21 11:38 69 08/24/21 07:46 58 L 08/24/21 07:35 78 97 08/24/21 07:00 97.9 F 58 L 18 123/69 99 08/24/21 02:36 97.5 F L 50 L 18 122/69 99 08/23/21 21:13 64 08/23/21 21:04 60 08/23/21 20:27 109/52 96 08/23/21 19:36 98.0 F 69 22 150/76 93 L 08/23/21 17:05 98.1 F 64 16 119/72 95 08/23/21 15:31 58 L 08/23/21 15:19 60 Intake and Output 06/08/22 06/09/22 06/09/22 22:59 06:59 14:59 Intake Total 358 Balance 358 Intake: Oral 358 Other: Voiding Method Toilet # Voids 1 2 Weight 81.647 kg Gen. appearance, comfortable on 2 L O2 nasal cannula Head exam was generally normal. There was no scleral icterus or corneal arcus. Mucous membranes were moist. Neck was supple and without jugular venous distension, thyromegaly, or carotid bruits. Carotids were easily palpable bilaterally. There was no adenopathy. Lungs sounds are diminished and the patient has scattered expiratory wheezes throughout the lung nina bilaterally Cardiac exam revealed the PMI to be normally situated and sized. The rhythm was regular and no extrasystoles were noted during several minutes of auscultation. The first and second heart sounds were normal and physiologic splitting of the second heart sound was noted. There were no murmurs, rubs, clicks, or gallops. Abdominal exam revealed normal bowel sounds. The abdomen was soft, non-tender, and without masses, organomegaly, or appreciable enlargement of the abdominal aorta. Examination of the extremities revealed easily palpable radial, femoral and pedal pulses. There was no cyanosis, clubbing or edema. Skin examination shows a psoriatic patch over the shins most on the left. There is also skin patches of psoriasis over the elbows bilaterally. Neurologically, the patient is awake and alert and the patient does not have any focal neurological deficit. Cranial nerves are essentially intact. Results - Laboratory Findings CBC and BMP: 08/23/21 01:39 08/22/21 22:05 PT/INR, D-dimer PT 10.0 sec (9.0-12.0) 08/23/21 01:23 INR 0.9 (<1.2) 08/23/21 01:23 D-Dimer 2.69 mg/L FEU (<0.60) H 08/22/21 22:05 Abnormal lab findings: Abnormal Labs 08/22/21 08/22/21 08/22/21 22:05 22:05 22:05 MCV 102.5 H APTT D-Dimer 2.69 H Carbon Dioxide 31 H Glucose 117 H 08/23/21 08/23/21 01:39 07:44 MCV 102.2 H APTT 74.7 H D-Dimer Carbon Dioxide Glucose - Diagnostic Findings Chest x-ray: image reviewed Assessment and Plan Plan: Acute unprovoked left-sided pulmonary embolism, hemodynamically stable without any RV strain, treated with IV heparin currently on anticoagulation with Eliquis Superficial left lower extremity DVT involving the long saphenous vein Acute pleuritic left-sided chest pain secondary to above Acute worsening shortness of breath secondary to above COPD with bullous changes involving the upper lobes bilaterally secondary to chronic smoking Smoker Hypothyroidism Plan This is a unprovoked pulmonary embolism. The patient will need at least 6 months of anticoagulation. May need a hypercoagulable workup and further decision if he'll be a candidate for lifelong anticoagulation and this can be done also on outpatient basis. For now is doing well. Evaluate his oxygen needs and wean down the FiO2 as tolerated. No evidence of any RV strain. Smoking cessation counseling was done. Continue Advair an outpatient basis regarding his COPD and Ventolin rescue inhaler. No identifiable risk factors for DVT or pulmonary embolism.
[2021-08-24 13:52] VITALS: BP 122/66; TEMP 98.2
[2021-08-24 15:12] VITALS: PULSE 72
--- NOTE | 2021-08-24 15:43 | P.DS ---
Providers Date of admission: 08/23/21 01:23 Expected date of discharge: 08/24/21 Attending physician: Carolina Keith MD Consults: 08/23/21 18:34 Consult Physician Routine Consulting Provider: Orville San Consult Reason/Comments: PE Do you want consulting provider notified?: Yes Primary care physician: [facility] Hospital Course: Discharge Diagnosis: Acute PE, with no evidence of right ventricular strain. Pt discharged home on oral anticoagulation with Eliquis and to follow up outpatient with pulmonology and recommend undergoing outpatient hypercoagulable workup with hematology. Superficial thrombosis of greater saphenous vein COPD with ongoing tobacco use. Continue with Advair and duo nebs as needed. Recommend smoking cessation. Hypothyroidism. Continue daily medication regimen with levothyroxine. Hospital Course: Patient is a 61-year-old male with a past medical history of COPD not on home oxygen dependent, hypothyroidism, and nicotine dependence smoking 2-3 packs of cigarettes daily times greater than 40 years. Patient presented to the emergency department with chief complaint of sudden onset chest pain. He underwent full evaluation. EKG showing normal sinus rhythm at 70 bpm with no noted T-wave or ST abnormalities. Troponin negative at less than 0.012. CBC unremarkable. CMP unremarkable with the exception of hypercarbia with CO2 of 31. D-dimer elevated at 2.69. CT completed revealing linear filling defect in the left lower lobe pulmonary artery and the arterial basal segment consistent with pulmonary emboli. Chest x-ray negative for acute cardiopulmonary process. Patient started on heparin infusion and admitted under our services. IV heparin transition to oral anticoagulation with Eliquis. Echocardiogram completed revealing normal EF of 55-60%. Left lower extremity Doppler revealing superficial thrombus within the left greater saphenous vein. Patient does have risk factors of cigarette smoking and history of recent long car ride traveling up north 4 hours in each direction, 3 weeks ago. Patient seen and evaluated by pulmonology during hospitalization. Patient is doing well on room air maintaining SpO2 of 97%. Patient is medically stable for discharge at this time, patient to follow-up outpatient with pulmonary and recommend undergoing outpatient hypercoagulable workup with hematology. Patient medically stable for discharge at this time. Recommend smoking cessation. Physical exam: Vital signs reviewed and stable. General: Nontoxic, no distress and appears stated age. Derm: Skin warm and dry, normal coloration for ethnicity. Head: Atraumatic, normocephalic and symmetric. Eyes: EOMs intact, no lid lag, and anicteric sclera Mouth: no lip lesions, mucus membranes moist Cardiovascular: regular rate and rhythm with normal S1S2, no murmur, positive posterior tibial pulses bilaterally, and cap refill < 2 seconds. Lungs: Respirations even, regular, and unlabored on room air. Lungs CTA bilaterally, no rhonchi, no rales, no wheezing, and no accessory muscle usage. Abdominal: soft, nontender to palpation, no guarding, no appreciable organomegaly Ext: ROM intact. No gross muscle atrophy, no edema, no contractures. Left lower extremity 1-2+ pitting edema. Neuro: Speech clear, face symmetrical and CN II-XII grossly intact with no noted focal neuro deficits Psych: Alert and oriented to person, place, time, and situation. Appropriate and pleasant affect. A total of 35 minutes of time were spent preparing this complex discharge summary. Pt was discharged on 08/24/21 at 3:31 PM. I reviewed the documentation as provided by the LOPEZ above, who is the original author of this note. I agree with the documented assessment and plan, with the following changes: none Patient Condition at Discharge: Stable Plan - Discharge Summary Discharge Rx Participant: No New Discharge Prescriptions: New Apixaban [Eliquis Starter Pack (for VTE)] 5 - 10 mg PO DIRECTED 30 Days #1 each HYDROcodone/APAP 7.5-325MG [Barnum 7.5-325] 1 tab PO Q4H PRN 3 Days #18 tab PRN Reason: Pain Continue Fluticasone/Salmeterol [Advair 250-50 Diskus] 1 puff PO RT-BID Levothyroxine Sodium [Synthroid] 50 mcg PO DAILY Albuterol Inhaler [Ventolin Hfa Inhaler] 2 puff INHALATION RT-QID #18 gm Discharge Medication List Albuterol Inhaler [Ventolin Hfa Inhaler] 2 puff INHALATION RT-QID #18 gm 08/07/21 [Rx] Fluticasone/Salmeterol [Advair 250-50 Diskus] 1 puff PO RT-BID 08/22/21 [History] Levothyroxine Sodium [Synthroid] 50 mcg PO DAILY 08/22/21 [History] Apixaban [Eliquis Starter Pack (for VTE)] 5 - 10 mg PO DIRECTED 30 Days #1 each 08/23/21 [Rx] HYDROcodone/APAP 7.5-325MG [Barnum 7.5-325] 1 tab PO Q4H PRN 3 Days #18 tab 08/24/21 [Rx] Follow up Appointment(s)/Referral(s): Qamar Rhodes DO [Doctor of Osteopathic Medicine] - 10 Days Shiva Domingo MD [STAFF PHYSICIAN] - 1 Week [facility] [Primary Care Provider] - 1-2 days Activity/Diet/Wound Care/Special Instructions: RN PLEASE FAX DISCHARGE MEDICATION LIST TO [facility] Activity: As tolerated. Take breaks as needed. Diet: Heart healthy and carb consistent diet. Avoid salts, or foods with hidden salts such as canned or boxed foods and frozen dinners. Extra salt makes your heart work harder and traps the fluid in your body for longer. Special Instructions: Take all of your medications as directed and remember to keep all of your doctor's appointments and follow-up as needed. Please ensure that you follow up with [place] clinic for age-appropriate cancer sc reenings. You are also being discharged home on a blood thinner,Eliquis. This is very important to take daily as directed until otherwise advised by your remelt furnace expediter, Dr. Rhodes Being that you are being placed on a blood thinner it is very important to watch for any signs of bleeding and notify your doctor immediately if you notice any bleeding. It is also important to remove any trip hazards such as rugs or loose extension cords from your home to prevent unnecessary falls and if you do experience a fall or head injury, it is extremely important to be evaluated by a medical provider immediately to ensure no internal bleeding. Recommend smoking cessation and as discussed, with long car rides it is important to make frequent stops to get out and stretch your legs and ambulate. Thank you for allowing us to participate in your care, it was truly a pleasure having you for our patient!!! Discharge Disposition: HOME SELF-CARE
== END 2021-08-24 17:35 | disposition home or self-care (01) ==
LOC: EC 21:38 → 6NMEDSUR 08-23 01:23
PROVIDERS: ADMIT Internal Medicine; ATTEND Internal Medicine
DX: I26.99 Other pulmonary embolism without acute cor pulmonale (principal); I82.812 Embolism and thrombosis of superficial veins of left lower extremity; J44.9 Chronic obstructive pulmonary disease, unspecified; E03.9 Hypothyroidism, unspecified; F17.210 Nicotine dependence, cigarettes, uncomplicated; Z79.890 Hormone replacement therapy; Z79.51 Long term (current) use of inhaled steroids; Z79.899 Other long term (current) drug therapy; Z88.0 Allergy status to penicillin; Z98.890 Other specified postprocedural states; Z80.0 Family history of malignant neoplasm of digestive organs; Z80.6 Family history of leukemia
CPT/HCPCS: 96361 ×2; 96376; 96365; 96366; 96375; 99291; 36415; 94640 ×5; 94760; 93005; 93306; 85379; 80053; 83735; 84484; 85025 ×2; 85610 ×2; 85730 ×2; 71046; 93971; 71275; G0378 ×2; S4990 ×2; J1644 ×2; J1170 ×2; Q9950; Q9967

== ENCOUNTER 2021-10-11 12:41 | Emergency (ER) | payer OTHER ==
[2021-10-11 12:49] VITALS: RESP 18
[2021-10-11] MEDS ORDERED: KETOROLAC 15 MG/ML 1 ML VIAL IM STA (14:32)
[2021-10-11] MEDS ORDERED: DEXAMETHASONE SOD PHOSPHATE 10 MG/ML 1 ML VIAL IM STA (14:32)
[2021-10-11] MEDS ORDERED: ORPHENADRINE 30 MG/ML 2 ML VIAL IM STA (14:32)
[2021-10-11] MEDS ORDERED: HYDROcodone/APAP 7.5-325MG 1 EACH TAB PO ONE (15:58)
--- NOTE | 2021-10-11 16:20 | XR ---
EXAMINATION TYPE: XR lumbar spine 2 or 3V DATE OF EXAM: 10/11/2021 CLINICAL HISTORY: pain TECHNIQUE: Three views of the lumbar spine are submitted. COMPARISON: None. FINDINGS: There are 5 lumbar type vertebral bodies identified. The lumbar spine shows satisfactory alignment w ithout evidence of acute fracture or dislocation. Vertebral body heights are within normal limits. Mi ld degenerative disc disease at L5-S1 with disc space narrowing and endplate sclerosis. Multilevel fa cet arthropathy. The overlying soft tissue appears unremarkable. IMPRESSION: No acute fracture or dislocation is seen in the lumbar spine. Mild degenerative disc disease L5-S1.
[2021-10-11] MEDS ORDERED: HYDROmorphone 1 MG/ML 1 ML SYRINGE IM STA (17:18)
[2021-10-11] MEDS ORDERED: ACET/COD 300 MG/30 MG STARTER PACK 6 TAB BTL PO STA (18:08)
--- NOTE | 2021-10-11 18:08 | ED ---
Back Pain HPI - General Chief Complaint: Back Pain/Injury Stated Complaint: Back pain Time Seen by Provider: 10/11/21 14:24 Source: patient Limitations: no limitations - History of Present Illness Initial Comments: Patient is a 61-year-old male presenting with chief complaint of lower back pain. Patient states it began this morning after getting out of bed. 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 Patient denies any radiation of the pain down his legs. He admits to pain with range of motion and ambulation. He denies any loss of bowel or bladder control or saddle paresthesia. Denies any numbness, tingling, weakness. He denies any dysuria or hematuria. Denies any abdominal pain, fever, chills, nausea, vomiting, diarrhea, constipation, hematochezia, melena. - Related Data Home Medications Medication Instructions Recorded Confirmed Fluticasone Propion/Salmeterol 1 puff PO RT-BID 08/22/21 10/11/21 [Advair 250-50 Diskus] Levothyroxine Sodium [Synthroid] 50 mcg PO DAILY 08/22/21 10/11/21 Apixaban [Eliquis] 5 mg PO BID 10/11/21 10/11/21 Previous Rx's Medication Instructions Recorded Albuterol Inhaler [Ventolin Hfa 2 puff INHALATION RT-QID #18 gm 08/07/21 Inhaler] HYDROcodone/APAP 7.5-325MG [[place] 1 tab PO Q4H PRN 3 Days #18 tab 08/24/21 7.5-325] Cyclobenzaprine [Flexeril] 10 mg PO TID PRN #20 tab 10/11/21 Allergies Allergy/AdvReac Type Severity Reaction Status Date / Time Penicillins Allergy Rash/Hives Verified 10/11/21 16:16 Review of Systems ROS Statement: Those systems with pertinent positive or pertinent negative responses have been documented in the HPI. ROS Other: All systems not noted in ROS Statement are negative. Past Medical History Past Medical History: COPD, Pulmonary Embolus (PE), Thyroid Disorder History of Any Multi-Drug Resistant Organisms: None Reported Past Surgical History: No Surgical Hx Reported Additional Past Surgical History / Comment(s): COLONOSCOPY Past Anesthesia/Blood Transfusion Reactions: No Reported Reaction Past Psychological History: No Psychological Hx Reported Smoking Status: Former smoker Past Alcohol Use History: Occasional Past Drug Use History: None Reported - Past Family History Father Family Medical History: Cancer Additional Family Medical History / Comment(s): LEUKEMIA Mother Family Medical History: Cancer Additional Family Medical History / Comment(s): COLON General Exam Limitations: no limitations General appearance: alert, in no apparent distress Head exam: Present: atraumatic, normocephalic, normal inspection Eye exam: Present: normal appearance, EOMI. Absent: scleral icterus, periorbital swelling Neck exam: Present: normal inspection Respiratory exam: Present: normal lung sounds bilaterally. Absent: respiratory distress, wheezes, rales, rhonchi, stridor Cardiovascular Exam: Present: regular rate, normal rhythm, normal heart sounds. Absent: systolic murmur, diastolic murmur, rubs, gallop, clicks Extremities exam: Present: normal inspection, full ROM Back exam: Present: normal inspection, muscle spasm, paraspinal tenderness. Absent: full ROM (Negative secondary to pain), vertebral tenderness Neurological exam: Present: alert, oriented X3, CN II-XII intact Psychiatric exam: Present: normal affect, normal mood Course Vital Signs 10/11/21 12:47 Temperature 98.4 F Pulse Rate 67 Respiratory 18 Rate Blood Pressure 139/77 O2 Sat by Pulse 97 Oximetry Medical Decision Making - Medical Decision Making Patient is a 61-year-old male presenting with chief complaint of low back pain. He denies any red flag symptoms. On examination there is pain with range of motion in paraspinal muscle tenderness bilaterally. X-ray shows no osseous abnormality, does show degenerative disc disease. Patient is given pain medication. Instructed to follow-up with PCP. Report back to ER if any new or worsening symptoms. Discussed return parameters and answered all questions. Patient conveyed verbal understanding and agreed to the plan. I discussed this case with my attending Dr. Corea Disposition Clinical Impression: Strain of lumbar region Disposition: HOME SELF-CARE Condition: Good Instructions (If sedation given, give patient instructions): Acute Low Back Pain (ED), Lower Back Exercises (ED) Additional Instructions: Follow-up with PCP in one to 2 days. Report back to ER with any new or worsening symptoms. Take medication as prescribed. Medication may cause drowsiness, do not take before driving or operating heavy machinery. Prescriptions: Cyclobenzaprine [Flexeril] 10 mg PO TID PRN #20 tab PRN Reason: Spasms Is patient prescribed a controlled substance at d/c from ED?: No Referrals: [facility],Clinic [Primary Care Provider] - 1-2 days Time of Disposition: 18:07
[2021-10-11 18:49] VITALS: BP 131/76; PULSE 71; TEMP 98.6
== END 2021-10-11 18:33 | disposition home or self-care (01) ==
LOC: EC 12:41
DX: S39.012A Strain of muscle, fascia and tendon of lower back, initial encounter (principal); J44.9 Chronic obstructive pulmonary disease, unspecified; Z79.51 Long term (current) use of inhaled steroids; Z87.891 Personal history of nicotine dependence; Z72.89 Other problems related to lifestyle; Z88.0 Allergy status to penicillin
CPT/HCPCS: 93005; 72100; 99283; 96372 ×4; J1100; J2360; J1170; J1885

== ENCOUNTER → 2021-10-31 | Outpatient (CLI) | payer OTHER ==
--- NOTE | 2021-10-31 09:10 | CT ---
EXAMINATION TYPE: CT angio chest CT DLP: 576 mGycm, Automated exposure control for dose reduction was used. DATE OF EXAM: 10/31/2021 8:38 AM COMPARISON: Multiple CTs of the chest with most recent on 08/22/2021 . CLINICAL INDICATION:Male, 61 years old with history of I26.99; History of pulmonary embolism TECHNIQUE/CONTRAST: CTA scan of the thorax is performed with IV Contrast, patient injected with 100, wasted 28 ml mL of I sovue 370, pulmonary embolism protocol. MIP images are created and reviewed. FINDINGS: Pulmonary Artery: There is no evidence for a filling defect within the pulmonary vasculature to sugge st acute pulmonary embolism. The pulmonary artery is of normal size. Lungs/Pleura: No evidence of focal consolidation, pleural effusion or pneumothorax. Mild paraseptal r and centrilobular emphysema changes are seen in the lung apices. Airway: Large airways are patent. Heart: Heart is within normal limits for size.. Vasculature: No evidence of aortic aneurysm. Mediastinum: No gross evidence of adenopathy. Musculoskeletal: No acute osseous abnormalities Soft Tissues: Unremarkable. Lower neck: No significant findings. Upper Abdomen: Mild hepatic steatosis with focal fatty infiltration of segment 4a. IMPRESSION: 1. No evidence of pulmonary embolism. 2. Mild COPD.
== END | disposition home or self-care (01) ==
LOC: RADCTMAIN 08:04
PROVIDERS: ATTEND Internal Medicine Critical Care Medicine
DX: I26.99 Other pulmonary embolism without acute cor pulmonale (principal)
CPT/HCPCS: 71275; Q9967

== ENCOUNTER → 2022-09-13 | Outpatient (CLI) | payer BC, OTHER ==
--- NOTE | 2022-09-13 09:32 | US ---
EXAMINATION TYPE: US Aorta Screening DATE OF EXAM: 09/13/2022 COMPARISON: NONE CLINICAL INDICATION: Male, 62 years old with history of Z13.6 ENCOUNTER FOR SCREENING FOR CARDIOVASCU LAR D; TECHNIQUE: Multiple sonographic images of the abdominal aorta are obtained. FINDINGS: EXAM MEASUREMENTS: Abdominal Aorta: Proximal: 2.4 x 2.2cm Mid: 2.2 x 2.4cm Distal: 2.1 x 1.8cm Right Iliac: 1.3 x 1.4cm Left Iliac: 1.3 x 1.3cm No AAA seen IMPRESSION: No ultrasound evidence for abdominal aortic aneurysm.
== END | disposition home or self-care (01) ==
LOC: RADUSWWP 08:58
DX: Z13.6 Encounter for screening for cardiovascular disorders (principal)
CPT/HCPCS: 76706

== ENCOUNTER → 2022-11-01 | Outpatient (CLI) | payer OTHER ==
--- NOTE | 2022-11-01 09:56 | CTL ---
EXAMINATION TYPE: CT Low Dose Lung DATE OF EXAM ORDERED: 11/01/2022 HISTORY: Z87.891. Current smoker, 60 pack year history. Lung cancer screening CT DLP: 111.[address] CTDI: 3.0 mGy Automated exposure control for dose reduction was used. SCREENING VISIT: Follow-up COMPARISON: CT low-dose lung cancer screening 09/14/2020, CTA chest 10/31/2021, 08/22/2021 TECHNIQUE: Low dose computed tomography scan was performed through the chest at 1 mm thick sections a nd reconstructed images in multiple planes at 1 mm and [address] DIAGNOSTIC QUALITY: Satisfactory FINDINGS: LUNG NODULES: No clinically significant pulmonary nodules. LUNGS: COPD: Severity: Mild Fibrosis: Severity: None Lymph nodes: None Other findings: None RIGHT PLEURAL SPACE: Effusion: None Calcification: None Thickening: None Pneumothorax: None LEFT PLEURAL SPACE: Effusion: None Calcification: None Thickening: None Pneumothorax: None HEART: Heart Size: Normal Coronary Calcification: None Pericardial Effusion: None OTHER FINDINGS: Upper abdomen: None Bony thorax: None Supraclavicular region: None Other: None IMPRESSION: No clinically significant pulmonary nodules. CT LUNG RAD AND CT CHEST RECOMMENDATION: Lung-Rad 1 Negative: Continue annual screening with LDCT in 12 months. S Modifier (other clinically significant findings): None
== END | disposition home or self-care (01) ==
LOC: RADCTMAIN 09:28
DX: Z12.2 Encounter for screening for malignant neoplasm of respiratory organs (principal); F17.210 Nicotine dependence, cigarettes, uncomplicated
CPT/HCPCS: 71271

== ENCOUNTER 2023-01-21 21:00 | Inpatient (IN) | payer OTHER, BC ==
[2023-01-21] MEDS ORDERED: MORPHINE SULFATE 4 MG/ML SYRINGE IVP STA (21:26)
[2023-01-21] MEDS ORDERED: ACETAMINOPHEN TAB 500 MG TAB PO STA (21:26)
--- NOTE | 2023-01-21 21:29 | ED ---
General Adult HPI - General Chief complaint: Shortness of Breath Stated complaint: Side Pain, IONA Time Seen by Provider: 01/21/23 21:15 Source: patient, RN notes reviewed Mode of arrival: ambulatory Limitations: no limitations - History of Present Illness Initial comments: Patient is a pleasant 62-year-old male presents emergency department with concerns with left-sided rib discomfort. Onset of symptoms was yesterday afternoon. Patient does have occasional cough, no sputum. Patient does have some mild myalgias. No fevers at home. Patient does feel a little bit short of breath. Symptoms greatly increased with cough and deep breaths. Discomfort is left lateral chest wall/rib area. - Related Data Home Medications Medication Instructions Recorded Confirmed Levothyroxine Sodium [Synthroid] 50 mcg PO HS 08/22/21 01/21/23 Albuterol Inhaler [Ventolin Hfa 2 puff INHALATION RT-QID PRN 01/21/23 01/21/23 Inhaler] Allergies Allergy/AdvReac Type Severity Reaction Status Date / Time Penicillins Allergy Rash/Hives Verified 01/21/23 22:41 Review of Systems ROS Statement: Those systems with pertinent positive or pertinent negative responses have been documented in the HPI. ROS Other: All systems not noted in ROS Statement are negative. Constitutional: Denies: fever Eyes: Denies: eye pain ENT: Denies: ear pain Respiratory: Reports: as per HPI, cough, dyspnea Cardiovascular: Reports: as per HPI Endocrine: Denies: fatigue Gastrointestinal: Denies: abdominal pain Genitourinary: Denies: dysuria Musculoskeletal: Denies: back pain Skin: Denies: rash Neurological: Denies: weakness Past Medical History Past Medical History: COPD, Pulmonary Embolus (PE), Thyroid Disorder History of Any Multi-Drug Resistant Organisms: None Reported Past Surgical History: No Surgical Hx Reported Additional Past Surgical History / Comment(s): COLONOSCOPY Past Anesthesia/Blood Transfusion Reactions: No Reported Reaction Past Psychological History: No Psychological Hx Reported Smoking Status: Current every day smoker, Former smoker Past Alcohol Use History: Occasional Past Drug Use History: None Reported - Past Family History Father Family Medical History: Cancer Additional Family Medical History / Comment(s): LEUKEMIA Mother Family Medical History: Cancer Additional Family Medical History / Comment(s): COLON General Exam Limitations: no limitations General appearance: alert, in no apparent distress Head exam: Present: normocephalic Eye exam: Present: normal appearance Neck exam: Present: normal inspection Respiratory exam: Present: normal lung sounds bilaterally, chest wall tenderness (Mild left lateral mid chest wall.) Cardiovascular Exam: Present: regular rate, normal rhythm Expanded Peripheral pulses: 2+: Radial (R), Radial (L), Dorsalis Pedis (R), Dorsalis Pedis (L) GI/Abdominal exam: Present: soft. Absent: tenderness Extremities exam: Present: normal inspection. Absent: pedal edema, calf tenderness Neurological exam: Present: alert Psychiatric exam: Present: normal affect, normal mood Skin exam: Present: normal color Course Vital Signs 01/21/23 01/21/23 01/21/23 21:01 21:27 23:27 Temperature 99.1 F 99.7 F H 98.0 F Pulse Rate 73 75 64 Respiratory 19 18 Rate Blood Pressure 121/68 135/76 O2 Sat by Pulse 97 95 95 Oximetry EKG Findings - EKG Results: EKG: interpreted by JOSED, sinus rhythm, normal axis, normal QRS, normal ST/T Medical Decision Making - Medical Decision Making Was pt. sent in by a medical professional or institution (, PA, HOUSE PRINCIPAL, urgent care, hospital, or snf...) When possible be specific @ -No Did you speak to anyone other than the patient for history (EMS, parent, family, police, friend...)? What history was obtained from this source @ -No Did you review nursing and triage notes (agree or disagree)? Why? @ -I reviewed and agree with nursing and triage notes Were old charts reviewed (outside hosp., previous admission, EMS record, old EKG, old radiological studies, urgent care reports/EKG's, snf records)? Report findings @ -No old charts were reviewed Differential Diagnosis (chest pain, altered mental status, abdominal pain women, abdominal pain men, vaginal bleeding, weakness, fever, dyspnea, syncope, headache, dizziness, GI bleed, back pain, seizure, CVA, palpatations, mental health, musculoskeletal)? @ -Differential Dyspnea: Coronary syndrome, arrhythmia, tamponade, asthma, COPD, pulmonary embolism, pneumonia, pneumothorax, pulmonary effusion, anaphylaxis, diabetic ketoacidosis, flailed chest, pulmonary contusion, diaphragmatic rupture, anemia, neuromuscular, this is not meant to be an all-inclusive list. EKG interpreted by me (3pts min.). @ -As above X-rays interpreted by me (1pt min.). @ -Chest x-ray shows no acute process CT interpreted by me (1pt min.). @ -Computed tomography scan of the chest with concern for pulmonary emboli, see report U/S interpreted by me (1pt. min.). @ -None done What testing was considered but not performed or refused? (CT, X-rays, U/S, labs)? Why? @ -None What meds were considered but not given or refused? Why? @ -None Did you discuss the management of the patient with other professionals (professionals i.e. , PA, HOUSE PRINCIPAL, lab, RT, psych nurse, director social welfare, salesperson handbags, teacher, disabilities services officer, outpatient case manager)? Give summary @ -Case was discussed with Dr. marquez, who will admit covering this [place] patient Was smoking cessation discussed for >3mins.? @ -No Was critical care preformed (if so, how long)? @ -33 minutes critical care time Were there social determinants of health that impacted care today? How? (Homelessness, low income, unemployed, alcoholism, drug addiction, transportation, low edu. Level, literacy, decrease access to med. care, fdc, rehab)? @ -No Was there de-escalation of care discussed even if they declined (Discuss DNR or withdrawal of care, Hospice)? DNR status @ -No What co-morbidities impacted this encounter? (DM, HTN, Smoking, COPD, CAD, Cancer, CVA, ARF, Chemo, Hep., AIDS, mental health diagnosis, sleep apnea, morbid obesity)? @ -None Was patient admitted / discharged? Hospital course, mention meds given and route, prescriptions, significant lab abnormalities, going to OR and other pertinent info. @ -Patient reevaluated and updated. Discomfort is improved. Patient will be heparinized for multiple bilateral pulmonary emboli. Admission orders written. Undiagnosed new problem with uncertain prognosis? @ -No Drug Therapy requiring intensive monitoring for toxicity (Heparin, Nitro, Insulin, Cardizem)? @ -Patient will be started on IV heparin and will need monitoring. Were any procedures done? @ -No Diagnosis/symptom? @ -Bilateral pulmonary embolism Acute, or Chronic, or Acute on Chronic? @ -Acute Uncomplicated (without systemic symptoms) or Complicated (systemic symptoms)? @ -default Side effects of treatment? @ -No Exacerbation, Progression, or Severe Exacerbation? @ -No Poses a threat to life or bodily function? How? (Chest pain, [place], [place], pneumonia, PE, COPD, DKA, ARF, appy, cholecystitis, CVA, Diverticulitis, Homicidal, Suicidal, threat to staff... and all critical care pts) @ -Pulmonary embolism does pose a threat to lung function in life. - Lab Data Result diagrams: 01/21/23 21:28 01/21/23 21: Lab Results 01/21/23 01/21/23 01/21/23 Range/Units 21:28 21::28 WBC 9.0 (3.8-10.6) k/uL RBC 4.64 (4.30-5.90) m/uL Hgb 15.5 (13.0-17.5) gm/dL Hct 45.8 (39.0-53.0) % MCV 98.8 (80.0-100.0) fL MCH 33.4 (25.0-35.0) pg MCHC 33.8 (31.0-37.0) g/dL RDW 12.3 (11.5-15.5) % Plt Count 148 L (150-450) k/uL MPV 7.2 Neutrophils % 84 % Lymphocytes % 7 % Monocytes % 6 % Eosinophils % 2 % Basophils % 0 % Neutrophils # 7.5 (1.3-7.7) k/uL Lymphocytes # 0.7 L (1.0-4.8) k/uL Monocytes # 0.6 (0-1.0) k/uL Eosinophils # 0.2 (0-0.7) k/uL Basophils # 0.0 (0-0.2) k/uL PT 10.8 (10.0-12.5) sec INR 1.0 (<1.2) APTT 24.3 (22.0-30.0) sec D-Dimer 9.14 H (<0.60) mg/L FEU Sodium 136 L (137-145) mmol/L Potassium 4.1 (3.5-5.1) mmol/L Chloride 100 (98-107) mmol/L Carbon Dioxide 24 (22-30) mmol/L Anion Gap 12 mmol/L BUN 10 (9-20) mg/dL Creatinine 0.84 (0.66-1.25) mg/dL Est GFR (CKD-EPI)AfAm >90 (>60 ml/min/1.73 sqM) Est GFR (CKD-EPI)NonAf >90 (>60 ml/min/1.73 sqM) Glucose 128 H (74-99) mg/dL Plasma Lactic Acid Mega (0.7-2.0) mmol/L Calcium 9.0 (8.4-10.2) mg/dL Magnesium 2.2 (1.6-2.3) mg/dL Total Bilirubin 0.9 (0.2-1.3) mg/dL AST 19 (17-59) U/L ALT 24 (4-49) U/L Alkaline Phosphatase 83 (38-126) U/L Troponin I (0.000-0.034) ng/mL Total Protein 6.8 (6.3-8.2) g/dL Albumin 4.0 (3.5-5.0) g/dL Influenza Type A (PCR) (Not Detectd) Influenza Type B (PCR) (Not Detectd) RSV (PCR) (Not Detectd) SARS-CoV-2 (PCR) (Not Detectd) 01/21/23 01/21/23 01/21/23 Range/Units 21:28 21:28 21:28 WBC (3.8-10.6) k/uL RBC (4.30-5.90) m/uL Hgb (13.0-17.5) gm/dL Hct (39.0-53.0) % MCV (80.0-100.0) fL MCH (25.0-35.0) pg MCHC (31.0-37.0) g/dL RDW (11.5-15.5) % Plt Count (150-450) k/uL MPV Neutrophils % % Lymphocytes % % Monocytes % % Eosinophils % % Basophils % % Neutrophils # (1.3-7.7) k/uL Lymphocytes # (1.0-4.8) k/uL Monocytes # (0-1.0) k/uL Eosinophils # (0-0.7) k/uL Basophils # (0-0.2) k/uL PT (10.0-12.5) sec INR (<1.2) APTT (22.0-30.0) sec D-Dimer (<0.60) mg/L FEU Sodium (137-145) mmol/L Potassium (3.5-5.1) mmol/L Chloride (98-107) mmol/L Carbon Dioxide (22-30) mmol/L Anion Gap mmol/L BUN (9-20) mg/dL Creatinine (0.66-1.25) mg/dL Est GFR (CKD-EPI)AfAm (>60 ml/min/1.73 sqM) Est GFR (CKD-EPI)NonAf (>60 ml/min/1.73 sqM) Glucose (74-99) mg/dL Plasma Lactic Acid Mega 1.1 (0.7-2.0) mmol/L Calcium (8.4-10.2) mg/dL Magnesium (1.6-2.3) mg/dL Total Bilirubin (0.2-1.3) mg/dL AST (17-59) U/L ALT (4-49) U/L Alkaline Phosphatase (38-126) U/L Troponin I <0.012 (0.000-0.034) ng/mL Total Protein (6.3-8.2) g/dL Albumin (3.5-5.0) g/dL Influenza Type A (PCR) Not Detected (Not Detectd) Influenza Type B (PCR) Not Detected (Not Detectd) RSV (PCR) Not Detected (Not Detectd) SARS-CoV-2 (PCR) Not Detected (Not Detectd) Critical Care Time Critical Care Time: Yes Total Critical Care Time: 33 Disposition Clinical Impression: Bilateral pulmonary embolism Disposition: ADMITTED IP TO THIS [facility] Condition: Serious Is patient prescribed a controlled substance at d/c from ED?: No Referrals: [facility],Clinic [Primary Care Provider] - 1-2 days Time of Disposition: 00:16
[2023-01-21 21:53] LABS: Basophils % (A) 0 %; Eosinophils # (A) 0.2 k/uL (0-0.7); Eosinophils % (A) 2 %; HCT 45.8 % (39.0-53.0); HGB 15.5 gm/dL (13.0-17.5); Lymphocytes # (A) 0.7 k/uL (1.0-4.8); Lymphocytes % (A) 7 %; MCH 33.4 pg (25.0-35.0); MCHC 33.8 g/dL (31.0-37.0); MCV 98.8 fL (80.0-100.0); Mean Platelet Volume 7.2; Monocytes # (A) 0.6 k/uL (0-1.0); Monocytes % (A) 6 %; Neutrophils # (A) 7.5 k/uL (1.3-7.7); Neutrophils % (A) 84 %; Platelet Count 148 k/uL (150-450); RBC 4.64 m/uL (4.30-5.90); RDW 12.3 % (11.5-15.5)
[2023-01-21 22:00] LABS: ALT 24 U/L (4-49); AST 19 U/L (17-59); African American GFR (CKD) >90 (>60 ml/min/1.73 sqM); Alkaline Phosphatase 83 U/L (38-126); Anion Gap 12 mmol/L; Blood Urea Nitrogen 10 mg/dL (9-20); Carbon Dioxide 24 mmol/L (22-30); Chloride 100 mmol/L (98-107); Glucose 128 mg/dL (74-99); Magnesium 2.2 mg/dL (1.6-2.3); Non-African American GFR(CKD) >90 (>60 ml/min/1.73 sqM); Potassium 4.1 mmol/L (3.5-5.1); Sodium 136 mmol/L (137-145); Total Bilirubin 0.9 mg/dL (0.2-1.3); Total Protein 6.8 g/dL (6.3-8.2)
--- NOTE | 2023-01-21 22:03 | XR ---
EXAMINATION TYPE: XR chest 2V DATE OF EXAM: 01/21/2023 COMPARISON: 08/22/2021 INDICATION: Difficulty breathing TECHNIQUE: Frontal and lateral views of the chest are obtained. FINDINGS: The heart size is normal. The pulmonary vasculature is normal. The lungs are clear. IMPRESSION: 1. No acute pulmonary process.
[2023-01-21 22:22] LABS: Partial Thromboplastin Time 24.3 sec (22.0-30.0); Prothrombin Time 10.8 sec (10.0-12.5)
--- NOTE | 2023-01-22 00:06 | CT ---
ADDENDUM - Added by Nacho Torres MD on 01/22/2023 12:05 AM (-05:00) EXAM: CT Angiography Chest With Intravenous Contrast CLINICAL HISTORY: ITS.REASON CT Reason: pain TECHNIQUE: Axial computed tomographic angiography images of the chest with intravenous contrast. CTDI is 13.13 mGy and DLP is 314.7 mGy-cm. This CT exam was performed using one or more of the following dose reduction techniques: automated exposure control, adjustment of the mA and/or kV according to patient size, and/or use of iterative reconstruction technique. MIP reconstructed images were created and reviewed. COMPARISON: No relevant prior studies available. FINDINGS: Pulmonary arteries: Acute pulmonary emboli in the bilateral segmental and subsegmental lower lobe branches. Aorta: No acute findings. No thoracic aortic aneurysm. Lungs: Unremarkable. No mass. No consolidation. Pleural space: Unremarkable. No significant effusion. No pneumothorax. Heart: Mildly prominent RIGHT ventricle, concerning for mild RIGHT heart strain. No significant pericardial effusion. Bones/joints: No acute fracture. No dislocation. Soft tissues: Unremarkable. Lymph nodes: Unremarkable. No enlarged lymph nodes. IMPRESSION: 1. Acute pulmonary emboli in the bilateral segmental and subsegmental lower lobe branches. 2. Mildly prominent RIGHT ventricle, concerning for mild RIGHT heart strain. <MYCVCSECTION> Communications: 01/22/23 00:11 Call Doctor Regarding Other, called Dr. Cardenas on 01/22 00: 11 (-05:00)
[2023-01-22] MEDS ORDERED: HEPARIN SODIUM 1,000 UN/ML (10ML VL) IV ONE (00:13)
[2023-01-22] MEDS ORDERED: traMADol 50 MG TAB PO PRN (00:16)
[2023-01-22] MEDS ORDERED: MORPHINE SULFATE 4 MG/ML SYRINGE IV PRN (00:16)
[2023-01-22] MEDS ORDERED: HYDROmorphone 0.5 MG/0.5 ML SYRINGE IVP PRN (00:16)
[2023-01-22] MEDS ORDERED: NALOXONE 0.4 MG/ML 1 ML VIAL IV PRN (00:16)
[2023-01-22] MEDS: HEPARIN SOD,PORK IN 0.45% NACL 25,000 UNIT in 0.45% NACL 1 250ML.BAG IV SCH ×2 (00:47→17:32)
[2023-01-22] MEDS: FAMOTIDINE 20 MG TAB PO SCH ×3 (01:14→21:04)
[2023-01-22] MEDS ORDERED: KETOROLAC 15 MG/ML 1 ML VIAL IVP STA (02:26)
[2023-01-22] MEDS ORDERED: IPRATROPIUM-ALBUTEROL 3 ML NEB INHALATION STA (02:26)
--- NOTE | 2023-01-22 03:24 | P.HPIM ---
History of Present Illness H&P Date: 01/22/23 Patient is a 62-year-old male with a PMH of DVT and PE (previously completed a one year course of anticoagulation), hypothyroidism, and asthma who presents to the emergency room with complaints of left-sided pleuritic chest discomfort. She reports her symptoms started suddenly 2 days ago and have gradually worsened. He reports severe left lateral chest discomfort with a significant pleuritic component. Denied experiencing lower extremity pain, nausea, vomiting, fever, chills, abdominal pain, diarrhea. Chest CT in the emergency room revealed acute bilateral pulmonary emboli with mildly prominent right ventricle concerning for mild right heart strain. EKG reveals sinus rhythm at [address]/T-wave inversions noted as reviewed by me. Laboratory evaluation revealed a platelet count of 148, sodium 136, with troponin less than 0.012. ED documentation reviewed and case discussed with ED provider. Review of systems: Pertinent positives and negatives as discussed in HPI, a complete review of systems was performed and all other systems are negative. Physical examination: Vital signs reviewed General: non toxic, no distress, appears at stated age, normal weight Derm: no unusual rashes/lesions, warm Head: atraumatic, normocephalic, symmetric Eyes: EOMI, no lid lag, anicteric sclera, pupils equal round reactive to light ENT: Nose and ears atraumatic Neck: No cervical lymphadenopathy, trachea midline, supple Mouth: no lip lesion, mucus membranes moist Cardiovascular: S1S2 reg, no murmur, positive dorsalis pedis pulse bilateral, 1+ bilateral lower extremity pitting edema Lungs: CTA bilateral, no rhonchi, no rales, no accessory muscle use Abdominal: soft, nontender to palpation, no guarding Ext: muscle strength 5 out of 5 in all 4 extremities grossly, no gross muscle atrophy, no contractures, Neuro: CN II-XI grossly intact, no gross focal neuro deficits Psych: Alert, oriented, appropriate affect Assessment: Submassive acute bilateral PE Chronic conditions: Hypothyroidism, asthma Imaging: Chest CT in the emergency room revealed acute bilateral pulmonary emboli with mildly prominent right ventricle concerning for mild right heart strain. EKG reveals sinus rhythm at [address]/T-wave inversions noted as reviewed by me. Data Review: Laboratory evaluation revealed a platelet count of 148, sodium 136, with troponin less than 0.012. Plan: Continue with heparin infusion Pain control with morphine and Toradol Pulmonary consulted Cardiac monitoring DVT prophylaxis: Heparin infusion The patient is admitted with an anticipated greater than 2 midnight stay for evaluation of acute PE CODE STATUS: Full Code Discussed with: Patient Anticipated discharge place: Home Past Medical History Past Medical History: COPD, Pulmonary Embolus (PE), Thyroid Disorder History of Any Multi-Drug Resistant Organisms: None Reported Past Surgical History: No Surgical Hx Reported Additional Past Surgical History / Comment(s): COLONOSCOPY Past Anesthesia/Blood Transfusion Reactions: No Reported Reaction Past Psychological History: No Psychological Hx Reported Smoking Status: Current every day smoker, Former smoker Past Alcohol Use History: Occasional Past Drug Use History: None Reported - Past Family History Father Family Medical History: Cancer Additional Family Medical History / Comment(s): LEUKEMIA Mother Family Medical History: Cancer Additional Family Medical History / Comment(s): COLON Medications and Allergies Home Medications Medication Instructions Recorded Confirmed Type Levothyroxine Sodium [Synthroid] 50 mcg PO HS 08/22/21 01/21/23 History Albuterol Inhaler [Ventolin Hfa 2 puff INHALATION RT-QID PRN 01/21/23 01/21/23 History Inhaler] Allergies Allergy/AdvReac Type Severity Reaction Status Date / Time Penicillins Allergy Rash/Hives Verified 01/21/23 22:41 Physical Exam Vitals: Vital Signs Temp Pulse Resp BP Pulse Ox 01/22/23 02:50 69 01/22/23 02:43 65 01/22/23 02:08 68 19 104/71 93 L 01/22/23 01:35 62 19 118/78 100 01/22/23 01:00 59 L 17 92/67 97 01/21/23 23:27 98.0 F 64 95 01/21/23 21:27 99.7 F H 75 18 135/76 95 01/21/23 21:01 99.1 F 73 19 121/68 97 Intake and Output 01/21/23 01/21/23 01/22/23 14:59 22:59 06:59 Other: Weight 78.471 kg Results CBC & Chem 7: 01/21/23 21:28 01/21/23 21:28 Labs: Abnormal Lab Results - Last 24 Hours (Table) 01/21/23 01/21/23 01/21/23 Range/Units 21:28 21:28 21:28 Plt Count 148 L (150-450) k/uL Lymphocytes # 0.7 L (1.0-4.8) k/uL D-Dimer 9.14 H (<0.60) mg/L FEU Sodium 136 L (137-145) mmol/L Glucose 128 H (74-99) mg/dL
--- NOTE | 2023-01-22 04:21 | P.CNPUL ---
History of Present Illness Consult date: 01/22/23 Requesting physician: Artis Cardenas Reason for consult: pulmonary embolism Chief complaint: Left-sided chest pain/back pain and shortness of breath History of present illness: I am seeing this patient in new consultation today 01/22/2023 for acute bilateral segmental and subsegmental pulmonary emboli. Patient is a 62-year-old male with past medical history significant for prior left lower extremity DVT and pulmonary embolism diagnosed August,. He did complete a course of at least 6 months of Eliquis. He also has history of COPD and chronic ongoing tobacco dependence. His PCP is out of the [place] [facility]. Patient came to the hospital late last night complaining of severe left-sided pleuritic chest/back pain accompanied with acute dyspnea. Patient reports that [place]. No other long distance travel, trauma, recent surgery. He also reports left leg cramping and distended leg veins over the last week. Denies any syncopal events or lightheadedness. Chest CTA on arrival demonstrated acute pulmonary emboli in the bilateral segmental and subsegmental lower lobe branches. There was possible mild CT evidence of right ventricular heart strain. Troponin less than 0.012. Overall, the patient appears hemodynamically stable. He is currently sitting in bed, on 2 L/m nasal cannula, in no acute distress. Blood pressure is normotensive. Heart rhythm is normal sinus on bedside monitor. No significant ECG evidence of right heart strain. Patient has been started on high-intensity IV heparin per protocol. CBC on arrival is unremarkable. Baseline coagulation profile unremarkable. D-dimer was elevated at 9.14. BMP on arrival was also unremarkable. Patient appears appropriate for the cardiac stepdown unit. Review of Systems REVIEW OF SYSTEMS: CONSTITUTIONAL: Denies any recent significant weight loss or weight gain. EYES: Denies change in vision. EARS, NOSE, MOUTH, THROAT: Denies headaches, denies sore throat. CARDIOVASCULAR: Denies palpitations or syncopal episodes. RESPIRATORY: Denies cough, congestion or hemoptysis. Admits pleuritic left- sided chest pain/back pain and acute shortness of breath GASTROINTESTINAL: Denies change in appetite, abdominal pain, nausea and vomiting, or diarrhea GENITOURINARY: Denies hematuria, denies infections. MUSKULOSKELETAL: Denies pain, denies swelling. Admits left lower extremity swelling/distended leg veins and pain INTEGUMENTARY: Denies rash, admits psoriasis NEUROLOGICAL: Denies recent memory loss, no recent seizure activity. PSYCHIATRIC: Denies anxiety, denies depression. HEMATOLOGIC/LYMPHATIC: Denies anemia, denies enlarged lymph node Past Medical History Past Medical History: COPD, Pulmonary Embolus (PE), Thyroid Disorder History of Any Multi-Drug Resistant Organisms: None Reported Past Surgical History: No Surgical Hx Reported Additional Past Surgical History / Comment(s): COLONOSCOPY Past Anesthesia/Blood Transfusion Reactions: No Reported Reaction Past Psychological History: No Psychological Hx Reported Smoking Status: Current every day smoker, Former smoker Past Alcohol Use History: Occasional Past Drug Use History: None Reported - Past Family History Father Family Medical History: Cancer Additional Family Medical History / Comment(s): LEUKEMIA Mother Family Medical History: Cancer Additional Family Medical History / Comment(s): COLON Medications and Allergies Home Medications Medication Instructions Recorded Confirmed Type Levothyroxine Sodium [Synthroid] 50 mcg PO HS 08/22/21 01/21/23 History Albuterol Inhaler [Ventolin Hfa 2 puff INHALATION RT-QID PRN 01/21/23 01/21/23 H istory Inhaler] Allergies Allergy/AdvReac Type Severity Reaction Status Date / Time Penicillins Allergy Rash/Hives Verified 01/21/23 22:41 Physical Exam Vitals: Vital Signs Temp Pulse Resp BP Pulse Ox 01/22/23 02:50 69 01/22/23 02:43 65 01/22/23 02:08 68 19 104/71 93 L 01/22/23 01:35 62 19 118/78 100 01/22/23 01:00 59 L 17 92/67 97 01/21/23 23:27 98.0 F 64 95 01/21/23 21:27 99.7 F H 75 18 135/76 95 01/21/23 21:01 99.1 F 73 19 121/68 97 Intake and Output 01/21/23 01/21/23 01/22/23 14:59 22:59 06:59 Other: Weight 78.471 kg GENERAL EXAM: Alert, 63-year-old white male appearing stated age, comfortable in no apparent distress. HEAD: Normocephalic and atraumatic EYES: Normal reaction of pupils, equal size. NOSE: Clear with pink turbinates. THROAT: No erythema or exudates. NECK: No masses, no JVD. CHEST: No chest wall deformity. LUNGS: Equal air entry with no crackles, wheeze, rhonchi or dullness. On 2 L/m nasal cannula. No conversational dyspnea or accessory muscle use.. CVS: S1 and S2 normal with no audible murmur, regular rhythm. No extra heart sounds ABDOMEN: No hepatosplenomegaly, active bowel sounds, no guarding or rigidity. SPINE: No scoliosis or deformity SKIN: Left lower extremity scaling/plaquing. CENTRAL NERVOUS SYSTEM: No focal deficits, tone is normal in all 4 extremities. EXTREMITIES: There is no peripheral edema, clubbing, or cyanosis. Peripheral pulses are intact. Results - Laboratory Findings CBC and BMP: 01/21/23 21:28 01/21/23 21:28 PT/INR, D-dimer PT 10.8 sec (10.0-12.5) 01/21/23 21:28 INR 1.0 (<1.2) 01/21/23 21:28 D-Dimer 9.14 mg/L FEU (<0.60) H 01/21/23 21:28 Abnormal lab findings: Abnormal Labs 01/21/23 01/21/23 01/21/23 21:28 21:28 21:28 Plt Count 148 L Lymphocytes # 0.7 L D-Dimer 9.14 H Sodium 136 L Glucose 128 H - Diagnostic Findings Chest x-ray: image reviewed CT scan - chest: image reviewed Assessment and Plan Assessment: Bilateral acute segmental and subsegmental pulmonary emboli, as reported on chest CT with possible mild right-sided heart strain. This is his second thromboembolic event, and will likely require lifelong anticoagulation. Acute hypoxemic respiratory failure, currently on 2 L/m nasal cannula, secondary to above Left-sided pleuritic chest pain secondary to above Chronic obstructive pulmonary disease, stable Chronic ongoing tobacco dependence Hypothyroidism Psoriasis Plan: Patient's labs, medications, imaging reviewed Overall, the patient appears hemodynamically stable, and is going to be admitted to the cardiac stepdown unit There was possible CT evidence of mild right-sided heart strain. Troponins less than 0.012. Blood pressure is normotensive. Heart rhythm is normal sinus on bedside monitor. Continue supplemental oxygen, currently on 2 L/m nasal cannula Continue IV heparin per protocol Patient will require lifelong oral anticoagulation Patient is receiving IV Dilaudid and tramadol for pleuritic chest pain, which seems to be helping Obtain 2-D echocardiogram to rule out right ventricular dysfunction Obtain venous Doppler of left lower extremity to rule out DVT Nicotine replacement offered Smoking cessation counseling performed We will continue to follow I have personally seen and examined the patient, performed the documentation and the assessment and plan as written. Number of minutes spent on the visit:20 Time with Patient: Greater than 30
--- NOTE | 2023-01-22 08:14 | US ---
EXAMINATION TYPE: US venous doppler duplex LE BI DATE OF EXAM: 01/22/2023 3:59 AM COMPARISON: Left lower extremity venous ultrasound 08/23/2021 CLINICAL INDICATION: Male, 62 years old with history of back pain x 3days; Current PE; Left knee/lowe r thigh cramps, and history of DVT LLE x 1 year ago; SIDE PERFORMED: Bilateral TECHNIQUE: The lower extremity deep venous system is examined utilizing real time linear array sonog violeta with graded compression, doppler sonography and color-flow sonography. VESSELS IMAGED: Common Femoral Vein Deep Femoral Vein Greater Saphenous Vein * Femoral Vein Popliteal Vein Small Saphenous Vein * Proximal Calf Veins (* superficial vessels) Right Leg: Negative for DVT Left Leg: Positive for DVT; Mid Pop to proximal posterior tibial veins. IMPRESSION: 1. Deep venous thrombosis of the mid popliteal to proximal posterior tibial veins. 2. No deep venous thrombosis of the right lower extremity.
[2023-01-22] MEDS: IPRATROPIUM-ALBUTEROL 3 ML NEB INHALATION PRN ×3 (08:18→21:07)
[2023-01-22] MEDS: NICOTINE 21MG/24HR PATCH TRANSDERM SCH (08:38)
--- NOTE | 2023-01-22 10:09 | P.PN ---
Subjective Progress Note Date: 01/22/23 Hospital course: Patient is a very pleasant 62-year-old male with a past medical history of DVT and PE diagnosed one year ago completed a course of anticoagulation and no longer on anticoagulants, COPD with continued nicotine dependence, and hypothyroidism. He presented to the emergency department with a chief complaint of left-sided pleuritic chest pain and shortness of breath beginning approximately 2 days ago and progressively worsening. Patient underwent full evaluation in the emergency department. Vital signs and blood pressure 121/68, heart rate 73, respiratory rate 19, temp 99.1F, SpO2 of 97% on room air. EKG completed showing normal sinus rhythm at 71 bpm. Chest x-ray negative for acute cardiopulmonary process. Labs completed and reviewed. CBC showing mild thro mbocytopenia with platelet count of 148 otherwise normal findings. BMP unremarkable. Liver profile showing normal findings. Troponin negative at less than 0.012. Influenza A, influenza B, RSV, and Covid PCR were also negative. D-dimer completed and was elevated at 9.14. Patient then underwent a CTA chest to rule out pulmonary emboli. CTA chest was completed showing acute pulmonary emboli in the bilateral segmental and subsegmental lower branches with mildly prominent right ventricle concerning for a right heart strain. Patient was started on high intensity heparin infusion and admitted under our services of consultation to pulmonology and hematology. Physical exam: Vital signs reviewed and stable. General: Nontoxic, no distress and appears stated age. Derm: Skin warm and dry, normal coloration for ethnicity. Head: Atraumatic, normocephalic and symmetric. Eyes: EOMs intact, no lid lag, and anicteric sclera Mouth: no lip lesions, mucus membranes moist Cardiovascular: regular rate and rhythm with normal S1S2, no murmur, positive posterior tibial pulses bilaterally, and cap refill < 2 seconds. Lungs: Respirations even, regular, and unlabored on room air. Lungs CTA gamal aterally, no rhonchi, no rales, no wheezing, and no accessory muscle usage. Abdominal: soft, nontender to palpation, no guarding, no appreciable organomegaly Ext: ROM intact. No gross muscle atrophy, unilateral lower extremity edema, left lower extremity with 1+ pitting edema, no contractures Neuro: Speech clear, face symmetrical and CN II-XII grossly intact with no noted focal neuro deficits Psych: Alert and oriented to person, place, time, and situation. Appropriate and pleasant affect. Assessment and Plan of Care: Submassive acute bilateral pulmonary emboli with concerns of right heart strain Chest pain, secondary to acute bilateral pulmonary emboli -CTA chest was completed showing acute pulmonary emboli in the bilateral segmental and subsegmental lower branches with mildly prominent right ventricle concerning for a right heart strain. -Continue high intensity heparin infusion at 18 units/kg/hr and monitor PTT every 6 hours to monitor for cold therapeutic range of 44-79 seconds. -Pulmonology consulted, appreciate further recommendations -Hematology consulted, appreciate further recommendations -Patient to remain on continuous Telemetry monitoring -Echocardiogram to be completed to rule out/confirm right heart strain -Order placed for venous Doppler left lower extremity as patient has unilateral lower extremity edema with left lower extremity 1+ pitting edema CODE STATUS: Full code DVT prophylaxis: Heparin infusion Anticipated discharge date: Clinical course to determine Anticipated discharge place: Home Patient was seen independently by Nurse Pracitioner. This document was prepared using [employer] dictation software. Please allow for errors in fire hydrant mechanic, while rare they do occur. Objective - Vital Signs Vital signs: Vital Signs Temp 97.8 F 01/22/23 08:36 Pulse 58 L 01/22/23 08:36 Resp 22 01/22/23 08:36 BP 125/71 01/22/23 08:36 Pulse Ox 98 01/22/23 08:36 FiO2 Intake & Output 01/21/23 01/22/23 01/22/23 18:59 06:59 18:59 Weight 78.471 kg - Labs CBC & Chem 7: 01/21/23 21:28 01/21/23 21:28 Labs: Abnormal Lab Results - Last 24 Hours (Table) 01/21/23 01/21/23 01/21/23 Range/Units 21:28 21:28 21:28 Plt Count 148 L (150-450) k/uL Lymphocytes # 0.7 L (1.0-4.8) k/uL D-Dimer 9.14 H (<0.60) mg/L FEU Sodium 136 L (137-145) mmol/L Glucose 128 H (74-99) mg/dL
[2023-01-22] MEDS: HEPARIN SODIUM 1,000 UN/ML (10ML VL) IV PRN (11:02)
--- NOTE | 2023-01-22 12:33 | CA ---
Transthoracic Echo Report Name: Charli Sanchez Age: 62 Gender: M : 1960 Exam Date: 01/22/2023 08:38 Exam Location: [facility] Ht (in): 70 Wt (lb): 173 Ordering Physician: Gaetano Villagran Attending/Referring Phys: Head Of Music Maye Christiansen [facility] Procedure CPT: Indications: evaluate for RV strain; PE Cardiac Hx: Technical Quality: Technically difficult study Contrast 1: Definity Total Dose (mL): 5 Contrast 2: Total Dose (mL): MEASUREMENTS (Male / Female) Normal Values 2D ECHO LV Diastolic Diameter PLAX 5.1 cm 4.2 - 5.9 / 3.9 - 5.3 cm LV Systolic Diameter PLAX 3.4 cm IVS Diastolic Thickness 0.8 cm 0.6 - 1.0 / 0.6 - 0.9 cm LVPW Diastolic Thickness 0.8 cm 0.6 - 1.0 / 0.6 - 0.9 cm LV Relative Wall Thickness 0.3 DOPPLER AV Peak Velocity 140.5 cm/s AV Peak Gradient 7.9 mmHg AV Mean Velocity 98.2 cm/s AV Mean Gradient 4.4 mmHg AV Velocity Time Integral 32.6 cm LVOT Peak Velocity 93.7 cm/s LVOT Peak Gradient 3.5 mmHg LVOT Velocity Time Integral 22.5 cm Mitral E Point Velocity 54.4 cm/s Mitral A Point Velocity 52.1 cm/s Mitral E to A Ratio 1.0 MV Deceleration Time 180.2 ms LV E' Lateral Velocity 10.7 cm/s Mitral E to LV E' Lateral Ratio 5.1 LV E' Septal Velocity 10.5 cm/s Mitral E to LV E' Septal Ratio 5.2 TR Peak Velocity 257.5 cm/s TR Peak Gradient 26.5 mmHg Right Atrial Pressure 8.0 mmHg Pulmonary Artery Systolic Pressu 34.5 mmHg Right Ventricular Systolic Press 34.5 mmHg FINDINGS Left Ventricle Left ventricular wall thickness normal. Left ventricular cavity size normal. Low normal left ventricular systolic function. Left ventricular ejection fraction is estimated at 50-55%. Right Ventricle Right ventricle size is normal. Normal right ventricular global systolic function. No pulmonary hypertension. Right Atrium Upper normal right atrial size. Left Atrium Normal left atrial size. Mitral Valve Structurally normal mitral valve. No mitral regurgitation. Aortic Valve Aortic valve not well visualized. No aortic valve stenosis or regurgitation. Tricuspid Valve Structurally normal tricuspid valve. Mild tricuspid regurgitation. Pulmonic Valve Pulmonic valve not well visualized. Pericardium No pericardial effusion. Echo free space anterior to the right ventricle likely represents a fat pad. Aorta Aortic root and proximal ascending aorta not well visualized. CONCLUSIONS Definity ECHO contrast used for improved visualization of the endocardial borders (inadequate visualization of two or more contiguous segments). Left ventricle systolic function is borderline normal Mild tricuspid regurgitation with no evidence of pulmonary hypertension Right ventricle size and systolic function are normal Previewed by: Dr. Collin Beyer MD (Electronically Signed) Final Date: 22 January 2023 12:32
[2023-01-22] MEDS: HYDROmorphone 1 MG/ML 1 ML SYRINGE IVP PRN ×3 (15:45→22:45)
[2023-01-22] MEDS: LEVOTHYROXINE 50 MCG TAB PO SCH (21:04)
[2023-01-23] MEDS: HYDROmorphone 1 MG/ML 1 ML SYRINGE IVP PRN ×6 (01:27→23:00)
[2023-01-23 04:41] LABS: Cardiolipin Ab IgG Interp Negative (Negative); Cardiolipin Ab IgM Interp Negative (Negative); Cardiolipin IgA Antibody <2.0 U/mL; Cardiolipin IgM Antibody 1.9 U/mL
[2023-01-23] MEDS: HEPARIN SOD,PORK IN 0.45% NACL 25,000 UNIT in 0.45% NACL 1 250ML.BAG IV SCH (06:07)
[2023-01-23 07:56] LABS: Basophils % (A) 0 %; Eosinophils # (A) 0.1 k/uL (0-0.7); Eosinophils % (A) 2 %; HCT 42.1 % (39.0-53.0); HGB 13.9 gm/dL (13.0-17.5); Lymphocytes # (A) 0.9 k/uL (1.0-4.8); Lymphocytes % (A) 14 %; MCH 33.5 pg (25.0-35.0); MCHC 33.1 g/dL (31.0-37.0); MCV 101.1 fL (80.0-100.0); Mean Platelet Volume 7.1; Monocytes # (A) 0.5 k/uL (0-1.0); Monocytes % (A) 7 %; Neutrophils # (A) 4.7 k/uL (1.3-7.7); Neutrophils % (A) 75 %; Platelet Count 158 k/uL (150-450); RBC 4.16 m/uL (4.30-5.90); RDW 12.4 % (11.5-15.5); WBC 6.3 k/uL (3.8-10.6)
[2023-01-23 08:15] LABS: ALT 20 U/L (4-49); AST 18 U/L (17-59); African American GFR (CKD) >90 (>60 ml/min/1.73 sqM); Albumin 3.4 g/dL (3.5-5.0); Alkaline Phosphatase 75 U/L (38-126); Anion Gap 9 mmol/L; Blood Urea Nitrogen 13 mg/dL (9-20); Calcium 8.4 mg/dL (8.4-10.2); Carbon Dioxide 26 mmol/L (22-30); Chloride 101 mmol/L (98-107); Glucose 123 mg/dL (74-99); Non-African American GFR(CKD) >90 (>60 ml/min/1.73 sqM); Potassium 3.9 mmol/L (3.5-5.1); Sodium 136 mmol/L (137-145); Total Bilirubin 0.4 mg/dL (0.2-1.3); Total Protein 6.1 g/dL (6.3-8.2)
[2023-01-23] MEDS: FAMOTIDINE 20 MG TAB PO SCH ×2 (08:45→20:06)
[2023-01-23] MEDS: NICOTINE 21MG/24HR PATCH TRANSDERM SCH (08:45)
[2023-01-23] MEDS: HEPARIN SODIUM 1,000 UN/ML (10ML VL) IV PRN (08:46)
[2023-01-23] MEDS: IPRATROPIUM-ALBUTEROL 3 ML NEB INHALATION PRN ×4 (09:07→21:42)
--- NOTE | 2023-01-23 11:35 | P.PN ---
Subjective Progress Note Date: 01/23/23 Principal diagnosis: Shortness of breath, chest pain. I am seeing this patient in new consultation today 01/22/2023 for acute bilateral segmental and subsegmental pulmonary emboli. Patient is a 62-year-old male with past medical history significant for prior left lower extremity DVT and pulmonary embolism diagnosed August,. He did complete a course of at least 6 months of Eliquis. He also has history of COPD and chronic ongoing tobacco dependence. His PCP is out of the [place] clinic. Patient came to the hospital late last night complaining of severe left-sided pleuritic chest/back pain accompanied with acute dyspnea. Patient reports that [place]. No other long distance travel, trauma, recent surgery. He also reports left leg cramping and distended leg veins over the last week. Denies any syncopal events or lightheadedness. Chest CTA on arrival demonstrated acute pulmonary emboli in the bilateral segmental and subsegmental lower lobe branches. There was possible mild CT evidence of right ventricular heart strain. Troponin less than 0.012. Overall, the patient appears hemodynamically stable. He is currently sitting in bed, on 2 L/m nasal cannula, in no acute distress. Blood pressure is normotensive. Heart rhythm is normal sinus on bedside monitor. No significant ECG evidence of right heart strain. Patient has been started on high-intensity IV heparin per protocol. CBC on arrival is unremarkable. Baseline coagulation profile unremarkable. D-dimer was elevated at 9.14. BMP on arrival was also unremarkable. Patient appears appropriate for the cardiac stepdown unit. Progress note dated 01/23/2023. This is a 62-year-old male who was seen again in the emergency department, room #26. He continues on oxygen at 2 L. He is receiving IV heparin. No IV fluids. I did mention to the nurse, that the patient can be converted over to a factor X a inhibitor, i.e. Eliquis. Clinically, he feels better. White count is 6.3, hemoglobin 13.9, hematocrit 42.1, with a normal platelet count. PTT is 37.9. Sodium 136, potassium 3.9, chlorides 101, CO2 26, BUN 13, creatinine 0.88. Glucose 123. Venous Doppler of the left lower extremity, was positive for DVT. Objective - Vital Signs Vital signs: Vital Signs Temp 98.3 F 01/23/23 08:00 Pulse 61 01/23/23 09:16 Resp 16 01/23/23 08:00 BP 130/68 01/23/23 08:00 Pulse Ox 96 01/23/23 09:09 FiO2 Intake & Output 01/22/23 01/23/23 01/23/23 18:59 06:59 18:59 Intake Total 250.000 457.239 46.037 Output Total 410 Balance 250.000 47.239 46.037 Weight 78.471 kg Intake: Intake, IV Titration 250.000 217.239 46.037 Amount Heparin Sod,Pork in 0.45% 250.000 217.239 46.037 NaCl 25,000 unit In 0.45 % NaCl 1 250ml.bag @ 18 UNITS/KG/HR 14.125 mls/hr IV .[id number] COUNTS INCLUDE 234 BEDS AT THE [facility] Rx#: [id number] Oral 240 Output: Urine 410 Other: Voiding Method Toilet Toilet # Voids 1 - Exam No acute distress, oriented 3. 2 L saturation is 100%. HEENT examination is grossly unremarkable. Mucous membranes are moist. No oral lesions. Neck supple. Full range of motion. No adenopathy thyromegaly or neck vein distention. Cardiovascular examination reveals regular rhythm rate. S1-S2 normal. No S3 or S4. No discernible murmur noted. Heart rate 61 bpm. Lungs reveal clear breath sounds. Breath sounds are equal bilaterally. No a dventitious lung sounds including wheezes rhonchi or crackles. Abdomen soft bowel sounds are heard. No masses or tenderness. Extremities are intact. No cyanosis clubbing or edema. Skin is without rash or lesion. Neurologic examination is brief but nonfocal. - Labs CBC & Chem 7: 01/23/23 07:35 01/23/23 07:35 Labs: Abnormal Lab Results - Last 24 Hours (Table) 01/22/23 01/23/23 01/23/23 Range/Units 17:25 07:35 07:35 RBC (4.30-5.90) m/uL MCV (80.0-100.0) fL Lymphocytes # (1.0-4.8) k/uL APTT 47.9 H 37.9 H (22.0-30.0) sec Sodium 136 L (137-145) mmol/L Glucose 123 H (74-99) mg/dL Total Protein 6.1 L (6.3-8.2) g/dL Albumin 3.4 L (3.5-5.0) g/dL 01/23/23 Range/Units 07:35 RBC 4.16 L (4.30-5.90) m/uL MCV 101.1 H (80.0-100.0) fL Lymphocytes # 0.9 L (1.0-4.8) k/uL APTT (22.0-30.0) sec Sodium (137-145) mmol/L Glucose (74-99) mg/dL Total Protein (6.3-8.2) g/dL Albumin (3.5-5.0) g/dL Assessment and Plan Assessment: Bilateral acute segmental and subsegmental pulmonary emboli, as reported on chest CT. Acute left lower extremity DVT. Rule out primary hypercoagulable state. Acute hypoxemic respiratory failure, currently on 2 L/m nasal cannula. Left-sided pleuritic chest pain. Chronic obstructive pulmonary disease. Chronic ongoing tobacco dependence. Hypothyroidism. Psoriasis. Plan: Plan dated 01/23/2023. The patient is currently on IV heparin, and can be converted to a factor X a inhibitor. I've asked hematology to see the patient, to rule out a primary hypercoagulable state. The patient will need a follow-up CT angiogram in about 8-10 weeks. The patient will see me in the office. No additional recomm endations are made. Clinically, the patient appears to be doing better today than yesterday. The Doppler of the left lower extremity, did reveal a deep vein thrombosis. The patient's overall prognosis remains guarded. We will continue to follow the patient, and make recommendations along the way. Time with Patient: Less than 30
--- NOTE | 2023-01-23 15:31 | P.PN ---
Subjective Progress Note Date: 01/23/23 Hospital course: Patient is a very pleasant 62-year-old male with a past medical history of DVT and PE diagnosed one year ago completed a course of anticoagulation and no longer on anticoagulants, COPD with continued nicotine dependence, and hypothyroidism. He presented to the emergency department with a chief complaint of left-sided pleuritic chest pain and shortness of breath beginning approximately 2 days ago and progressively worsening. Patient underwent full evaluation in the emergency department. Vital signs and blood pressure 121/68, heart rate 73, respiratory rate 19, temp 99.1F, SpO2 of 97% on room air. EKG completed showing normal sinus rhythm at 71 bpm. Chest x-ray negative for acute cardiopulmonary process. Labs completed and reviewed. CBC showing mild thrombocytopenia with platelet count of 148 otherwise normal findings. BMP unremarkable. Liver profile showing normal findings. Troponin negative at less than 0.012. Influenza A, influenza B, RSV, and Covid PCR were also negative. D-dimer completed and was elevated at 9.14. Patient then underwent a CTA chest to rule out pulmonary emboli. CTA chest was completed showing acute pulmonary emboli in the bilateral segmental and subsegmental lower branches with mildly prominent right ventricle concerning for a right heart strain. Patient was started on high intensity heparin infusion and admitted under our services of consultation to pulmonology and hematology. Physical exam: Vital signs reviewed and stable. General: Nontoxic, no distress and appears stated age. Derm: Skin warm and dry, normal coloration for ethnicity. Head: Atraumatic, normocephalic and symmetric. Eyes: EOMs intact, no lid lag, and anicteric sclera Mouth: no lip lesions, mucus membranes moist Cardiovascular: regular rate and rhythm with normal S1S2, no murmur, positive posterior tibial pulses bilaterally, and cap refill < 2 seconds. Lungs: Respirations even, regular, and unlabored on room air. Lungs CTA bilaterally, no rhonchi, no rales, no wheezing, and no accessory muscle usage. Abdominal: soft, nontender to palpation, no guarding, no appreciable organomegaly Ext: ROM intact. No gross muscle atrophy, unilateral lower extremity edema, left lower extremity with 1+ pitting edema, no contractures Neuro: Speech clear, face symmetrical and CN II-XII grossly intact with no noted focal neuro deficits Psych: Alert and oriented to person, place, time, and situation. Appropriate and pleasant affect. Assessment and Plan of Care: Submassive acute bilateral pulmonary emboli with concerns of right heart strain Acute DVT in right lower extremity mid popliteal to proximal posterior tibial veins Chest pain, secondary to acute bilateral pulmonary emboli -CTA chest was completed showing acute pulmonary emboli in the bilateral segmental and subsegmental lower branches with mildly prominent right ventricle concerning for a right heart strain. -Continue high intensity heparin infusion at 18 units/kg/hr and monitor PTT every 6 hours to monitor for cold therapeutic range of 44-79 seconds. We will likely transition patient to oral anticoagulation with Eliquis, awaiting evalua tion by [employer] supervisor. -Pulmonology following, reviewed documentation in chart -Hematology consulted, appreciate further recommendations -Patient to remain on continuous Telemetry monitoring -Echocardiogram to be completed to rule out/confirm right heart strain -Venous Doppler left lower extremity positive for DVT mid popliteal to proximal posterior tibial veins -Venous Doppler right lower extremity negative for DVT Data reviewed: Morning labs completed and reviewed. CBC unremarkable with WBC count of 6.3, hemoglobin 13.9, and platelet count of 158. BMP unremarkable. Liver profile remains normal findings. Magnesium 2.0. Vital signs reviewed. Blood pressure 130/68, heart rate 53, respiratory rate 16, temp 98.3F, SpO2 100% on 2 L O2 via nasal cannula. Imaging reviewed: -Venous Doppler left lower extremity positive for DVT mid popliteal to proximal posterior tibial veins -Venous Doppler right lower extremity negative for DVT CODE STATUS: Full code DVT prophylaxis: Heparin infusion Anticipated discharge date: Clinical course to determine Anticipated discharge place: Home Patient was seen independently by Nurse Pracitioner. This document was prepared using [employer] dictation software. Please allow for errors in university librarian, while rare they do occur. Objective - Vital Signs Vital signs: Vital Signs Temp 98.6 F 01/23/23 06:00 Pulse 54 L 01/23/23 06:00 Resp 20 01/23/23 06:00 BP 110/62 01/23/23 06:00 Pulse Ox 98 01/23/23 06:00 FiO2 Intake & Output 01/22/23 01/23/23 01/23/23 18:59 06:59 18:59 Intake Total 250.000 457.239 Output Total 410 Balance 250.000 47.239 Weight 78.471 kg Intake: Intake, IV Titration 250.000 217.239 Amount Heparin Sod,Pork in 0.45% 250.000 217.239 NaCl 25,000 unit In 0.45 % NaCl 1 250ml.bag @ 18 UNITS/KG/HR 14.125 mls/hr IV .[id number] [facility] Rx#: [id number] Oral 240 Output: Urine 410 Other: Voiding Method Toilet # Voids 1 - Labs CBC & Chem 7: 01/23/23 07:35 01/23/23 07:35 Labs: Abnormal Lab Results - Last 24 Hours (Table) 01/22/23 01/22/23 01/23/23 Range/Units 10:03 17:25 07:35 RBC 4.16 L (4.30-5.90) m/uL MCV 101.1 H (80.0-100.0) fL Lymphocytes # 0.9 L (1.0-4.8) k/uL APTT 31.7 H 47.9 H (22.0-30.0) sec
--- NOTE | 2023-01-23 16:06 | P.CONS ---
History of Present Illness - Reason for Consult Consult date: 01/22/23 recurrent PEs Requesting physician: Beth Ma - Chief Complaint SOB - History of Present Illness Patient is a 62-year-old male with a significant history of pulmonary embolism and nicotine dependence. Patient reports he was diagnosed with a PE in August 2021 was treated with eliquis at that time for approximately 90 days and tolerated medication well. There were no known provoking factors at that time. Patient denies family history of blood clots or known blood clotting disorders. Patient presented to the emergency room with complaints of worsening shortness of breath and sharp pain radiating to back. Patient also reports left lower extremity edema but states this is intermittent and chronic in nature and relartes this to history of psoriasis. He does report experiencing "charley horses" in left leg. Upon admission CTA chest revealed acute pulmonary emboli in the bilateral segmental and subsegmental lower lobe branches. With mildly prominent right ventricle concerning for mild right heart strain. Lower extremity Dopplers revealed DVT in left mid popliteal to proximal posterior tibial veins. Patient has been started on heparin drip. Patient is reporting improvement in shortness of breath at today's visit but does report upper back pain with deep inspiration. Pt denies any provoking factors. Review of Systems 10 point ROS is negative except as stated in the HPI Past Medical History Past Medical History: COPD, Pulmonary Embolus (PE), Thyroid Disorder History of Any Multi-Drug Resistant Organisms: None Reported Past Surgical History: No Surgical Hx Reported Additional Past Surgical History / Comment(s): COLONOSCOPY Past Anesthesia/Blood Transfusion Reactions: No Reported Reaction Past Psychological History: No Psychological Hx Reported Smoking Status: Current every day smoker, Former smoker Past Alcohol Use History: Occasional Past Drug Use History: None Reported - Past Family History Father Family Medical History: Cancer Additional Family Medical History / Comment(s): LEUKEMIA Mother Family Medical History: Cancer Additional Family Medical History / Comment(s): COLON Medications and Allergies Home Medications Medication Instructions Recorded Confirmed Type Levothyroxine Sodium [Synthroid] 50 mcg PO HS 08/22/21 01/21/23 History Albuterol Inhaler [Ventolin Hfa 2 puff INHALATION RT-QID PRN 01/21/23 01/21/23 History Inhaler] Allergies Allergy/AdvReac Type Severity Reaction Status Date / Time Penicillins Allergy Rash/Hives Verified 01/21/23 22:41 Physical Exam Vitals: Vital Signs Temp Pulse Resp BP Pulse Ox 01/22/23 15:55 62 01/22/23 15:42 62 18 115/72 100 01/22/23 15:41 60 01/22/23 14:41 53 L 18 101/67 96 01/22/23 11:51 58 L 18 126/88 97 01/22/23 10:01 63 20 130/80 95 01/22/23 08:36 97.8 F 58 L 22 125/71 98 01/22/23 08:28 62 01/22/23 08:23 96 01/22/23 08:18 63 01/22/23 06:28 56 L 19 99/59 97 01/22/23 04:24 73 18 111/56 94 L 01/22/23 02:50 69 01/22/23 02:43 65 01/22/23 02:08 68 19 104/71 93 L 01/22/23 01:35 62 19 118/78 100 01/22/23 01:00 59 L 17 92/67 97 01/21/23 23:27 98.0 F 64 95 01/21/23 21:27 99.7 F H 75 18 135/76 95 01/21/23 21:01 99.1 F 73 19 121/68 97 Intake and Output 01/22/23 01/22/23 01/22/23 06:59 14:59 22:59 Intake Total 145.488 Balance 145.488 Intake: Intake, IV Titration 145.488 Amount Heparin Sod,Pork in 0.45% 145.488 NaCl 25,000 unit In 0.45 % NaCl 1 250ml.bag @ 18 UNITS/KG/HR 14.125 mls/hr IV .[id number] [facility] Rx#: [id number] - Constitutional General appearance: average body habitus, no acute distress - EENT Eyes: anicteric sclerae, EOMI ENT: hearing grossly normal - Neck Neck: no lymphadenopathy - Respiratory Respiratory: bilateral: CTA - Cardiovascular Rhythm: regular Heart sounds: normal: S1, S2 Abnormal Heart Sounds: no systolic murmur, no diastolic murmur, no rub, no S3 Gallop, no S4 Gallop, no click, no other leg Peripheral Edema: left: Other (mild firmness to left lower leg, varcosities noted ) - Gastrointestinal General gastrointestinal: soft, no tenderness - Integumentary Integumentary: no cyanotic - Neurologic Neurologic: CNII-XII intact - Musculoskeletal Musculoskeletal: strength equal bilaterally - Psychiatric Psychiatric: A&O x's 3, appropriate affect, intact judgment & insight Results CBC & Chem 7: 01/23/23 07:35 01/23/23 07:35 Labs: Abnormal Lab Results - Last 24 Hours (Table) 01/21/23 01/21/23 01/21/23 Range/Units 21:28 21:28 21:28 Plt Count 148 L (150-450) k/uL Lymphocytes # 0.7 L (1.0-4.8) k/uL APTT (22.0-30.0) sec D-Dimer 9.14 H (<0.60) mg/L FEU Sodium 136 L (137-145) mmol/L Glucose 128 H (74-99) mg/dL 01/22/23 Range/Units 10:03 Plt Count (150-450) k/uL Lymphocytes # (1.0-4.8) k/uL APTT 31.7 H (22.0-30.0) sec D-Dimer (<0.60) mg/L FEU Sodium (137-145) mmol/L Glucose (74-99) mg/dL CT scan - chest: report reviewed Venous US: report reviewed Assessment and Plan (1) Bilateral pulmonary embolism Current Visit: Yes Status: Acute Priority: High Code(s): I26.99 - OTHER PULMONARY EMBOLISM WITHOUT ACUTE COR PULMONALE SNOMED Code(s): 08137939 (2) DVT (deep venous thrombosis) Current Visit: Yes Status: Acute Priority: High Code(s): I82.409 - ACUTE E MBOLISM AND THOMBOS UNSP DEEP VN UNSP LOWER EXTREMITY SNOMED Code(s): 128 351446 Plan: Recurrent PE, LLE DVT: -Significant history of pulmonary embolism and nicotine dependence. Patient reports he was diagnosed with a PE in August 2021 was treated with eliquis at that time for approximately 90 days and tolerated medication well. There were no known provoking factors at that time. Patient denies family history of blood clots or known blood clotting disorders. -CTA chest revealed acute pulmonary emboli in the bilateral segmental and subse gmental lower lobe branches. With mildly prominent right ventricle concerning for mild right heart strain. Lower extremity Dopplers revealed DVT in left mid popliteal to proximal posterior tibial veins. Patient has been started on heparin drip. -Pt denies any provoking factors. Due to recurrence of PE and unprovoked nature, would recommend life long anticoagulation. Since he tolerated Eliquis well previously, this would reasonable to restart pt on the same -Will obtain APLS workup, if positive pt would have to be transitioned to Coumadin Pt updated on plan of care and was agreeable attests: I have seen and examined patient, performed H&P, developed impression and plan of care. Discussed with dictator. Agree with documentation, dictated as a scribe.
[2023-01-23] MEDS: LEVOTHYROXINE 50 MCG TAB PO SCH (20:06)
[2023-01-24] MEDS: HYDROmorphone 1 MG/ML 1 ML SYRINGE IVP PRN ×2 (04:28→08:49)
[2023-01-24] MEDS: HEPARIN SOD,PORK IN 0.45% NACL 25,000 UNIT in 0.45% NACL 1 250ML.BAG IV SCH (06:56)
[2023-01-24] MEDS: IPRATROPIUM-ALBUTEROL 3 ML NEB INHALATION PRN (08:05)
[2023-01-24] MEDS: FAMOTIDINE 20 MG TAB PO SCH (08:49)
[2023-01-24] MEDS: NICOTINE 21MG/24HR PATCH TRANSDERM SCH (08:49)
[2023-01-24] MEDS ORDERED: Apixaban Initiation Dose--VTE 5 MG TAB PO SCH (09:00)
[2023-01-24 09:05] LABS: HCT 42.8 % (39.0-53.0); HGB 13.6 gm/dL (13.0-17.5); MCH 32.3 pg (25.0-35.0); MCHC 31.7 g/dL (31.0-37.0); MCV 101.9 fL (80.0-100.0); Macrocytosis Slight; Platelet Count 161 k/uL (150-450); RDW 12.9 % (11.5-15.5); WBC 4.7 k/uL (3.8-10.6)
[2023-01-24 09:46] VITALS: RESP 18
[2023-01-24 09:51] LABS: ALT 23 U/L (4-49); AST 25 U/L (17-59); African American GFR (CKD) >90 (>60 ml/min/1.73 sqM); Albumin 3.3 g/dL (3.5-5.0); Alkaline Phosphatase 78 U/L (38-126); Anion Gap 8 mmol/L; Blood Urea Nitrogen 10 mg/dL (9-20); Calcium 8.6 mg/dL (8.4-10.2); Carbon Dioxide 28 mmol/L (22-30); Chloride 101 mmol/L (98-107); Glucose 139 mg/dL (74-99); Magnesium 2.1 mg/dL (1.6-2.3); Non-African American GFR(CKD) >90 (>60 ml/min/1.73 sqM); Sodium 137 mmol/L (137-145); Total Bilirubin 0.4 mg/dL (0.2-1.3); Total Protein 5.7 g/dL (6.3-8.2)
--- NOTE | 2023-01-24 11:36 | P.PN ---
Subjective Progress Note Date: 01/24/23 Principal diagnosis: Shortness of breath, chest pain. I am seeing this patient in new consultation today 01/22/2023 for acute bilateral segmental and subsegmental pulmonary emboli. Patient is a 62-year-old male with past medical history significant for prior left lower extremity DVT and pulmonary embolism diagnosed August,. He did complete a course of at least 6 months of Eliquis. He also has history of COPD and chronic ongoing tobacco dependence. His PCP is out of the [place] clinic. Patient came to the hospital late last night complaining of severe left-sided pleuritic chest/back pain accompanied with acute dyspnea. Patient reports that [place]. No other long distance travel, trauma, recent surgery. He also reports left leg cramping and distended leg veins over the last week. Denies any syncopal events or lightheadedness. Chest CTA on arrival demonstrated acute pulmonary emboli in the bilateral segmental and subsegmental lower lobe branches. There was possible mild CT evidence of right ventricular heart strain. Troponin less than 0.012. Overall, the patient appears hemodynamically stable. He is currently sitting in bed, on 2 L/m nasal cannula, in no acute distress. Blood pressure is normotensive. Heart rhythm is normal sinus on bedside monitor. No significant ECG evidence of right heart strain. Patient has been started on high-intensity IV heparin per protocol. CBC on arrival is unremarkable. Baseline coagulation profile unremarkable. D-dimer was elevated at 9.14. BMP on arrival was also unremarkable. Patient appears appropriate for the cardiac stepdown unit. Progress note dated 01/23/2023. This is a 62-year-old male who was seen again in the emergency department, room #26. He continues on oxygen at 2 L. He is receiving IV heparin. No IV fluids. I did mention to the nurse, that the patient can be converted over to a factor X a inhibitor, i.e. Eliquis. Clinically, he feels better. White count is 6.3, hemoglobin 13.9, hematocrit 42.1, with a normal platelet count. PTT is 37.9. Sodium 136, potassium 3.9, chlorides 101, CO2 26, BUN 13, creatinine 0.88. Glucose 123. Venous Doppler of the left lower extremity, was positive for DVT. Progress note dated 01/24/2023. 62-year-old male with recurrent pulmonary embolism, seen today in room 353. Currently he is on room air. Saturations are 95%. The patient is no longer on IV heparin, and is been converted to a factor X a inhibitor. In my opinion, the patient should be treated for at least 6 months, and maybe longer, and, I recomm ended a follow-up with hematology, to rule out a primary hypercoagulable state. In addition, the patient will follow-up with me, for repeat CT angiogram about 8-[address] initial [address] angiogram. Labs, x-rays, and medications are all reviewed. Currently labs include a white count 4.7, hemoglobin 13.6, hematocrit 42.8, and a normal platelet count. Sodium 137, potassium 4, chlorides 101, CO2 28, BUN 10, and creatinine 0.79. Albumin is 3.3. Objective - Vital Signs Vital signs: Vital Signs Temp 98.1 F 01/24/23 08:00 Pulse 68 01/24/23 08:18 Resp 18 01/24/23 08:00 BP 121/58 01/24/23 08:00 Pulse Ox 95 01/24/23 08:00 FiO2 Intake & Output 01/23/23 01/24/23 01/24/23 18:59 06:59 18:59 Intake Total 406.037 125 Balance 406.037 125 Intake: Intake, IV Titration 46.037 Amount Heparin Sod,Pork in 0.45% 46.037 NaCl 25,000 unit In 0.45 % NaCl 1 250ml.bag @ 18 UNITS/KG/HR 14.125 mls/hr IV .[id number] [facility] Rx#: [id number] Oral 360 125 Other: Voiding Method Toilet Toilet # Voids 1 1 - Exam No acute distress, oriented 3. Room air saturation is 95%. HEENT examination is grossly unremarkable. Mucous membranes are moist. No oral lesions. Neck supple. Full range of motion. No adenopathy thyromegaly or neck vein distention. Cardiovascular examination reveals regular rhythm rate. S1-S2 normal. No S3 or S4. No discernible murmur noted. Heart rate 68 bpm. Lungs reveal clear breath sounds. Breath sounds are equal bilaterally. No adventitious lung sounds including wheezes rhonchi or crackles. Abdomen soft bowel sounds are heard. No masses or tenderness. Extremities are intact. No cyanosis clubbing or edema. Skin is without rash or lesion. Neurologic examination is brief but nonfocal. - Labs CBC & Chem 7: 01/24/23 07:43 01/24/23 07:43 Labs: Abnormal Lab Results - Last 24 Hours (Table) 01/23/23 01/24/23 01/24/23 Range/Units 14:54 07:43 07:43 RBC 4.20 L (4.30-5.90) m/uL MCV 101.9 H (80.0-100.0) fL APTT 50.8 H 65.2 H (22.0-30.0) sec Glucose (74-99) mg/dL Total Protein (6.3-8.2) g/dL Albumin (3.5-5.0) g/dL 01/24/23 Range/Units 07:43 RBC (4.30-5.90) m/uL MCV (80.0-100.0) fL APTT (22.0-30.0) sec Glucose 139 H (74-99) mg/dL Total Protein 5.7 L (6.3-8.2) g/dL Albumin 3.3 L (3.5-5.0) g/dL Assessment and Plan Assessment: Bilateral acute segmental and subsegmental pulmonary emboli, as reported on chest CT. Recurrent pulmonary embolism. Acute left lower extremity DVT. Rule out primary hypercoagulable state. Acute hypoxemic respiratory failure, currently on 2 L/m nasal cannula. Left-sided pleuritic chest pain. Chronic obstructive pulmonary disease. Chronic ongoing tobacco dependence. Hypothyroidism. Psoriasis. Plan: Plan dated 01/23/2023. The patient is currently on IV heparin, and can be converted to a factor X a inhibitor. I've asked hematology to see the patient, to rule out a primary hypercoagulable state. The patient will need a follow-up CT angiogram in about 8-10 weeks. The patient will see me in the office. No additional recommendations are made. Clinically, the patient appears to be doing better today than yesterday. The Doppler of the left lower extremity, did reveal a deep vein thrombosis. The patient's overall prognosis remains guarded. We will continue to follow the patient, and make recommendations along the way. Plan dated 01/24/2023. The patient is being evaluated for possible discharge. IV heparin has been discontinued, and the patient was placed on a factor X a inhibitor. The patient will need follow-up CT angiogram in about 8-10 weeks. In addition, the patient will follow with me in the office, and I recommended a follow with hematology, to rule out a primary hypercoagulable state. The patient has had a previous pulmonary embolism in 2021. Labs, x-rays, and medications are reviewed. Prognosis is certainly guarded. Time with Patient: Less than 30
--- NOTE | 2023-01-24 11:38 | P.DS ---
Providers Date of admission: 01/22/23 00:17 Expected date of discharge: 01/24/23 Attending physician: Carolina Keith MD Consults: 01/22/23 00:16 Consult Physician Urgent Consulting Provider: Qamar Rhodes Consult Reason/Comments: PE Do you want consulting provider notified?: Yes 01/22/23 08:14 Consult Physician Routine Consulting Provider: Eloy Rogel Consult Reason/Comments: Recurrent PE's Do you want consulting provider notified?: Yes Primary care physician: [facility] Hospital Course: Discharge Diagnosis: Submassive acute bilateral pulmonary emboli Acute DVT in right lower extremity mid popliteal to proximal posterior tibial veins Chest pain, secondary to acute bilateral pulmonary emboli Hospital Course: Patient is a very pleasant 62-year-old male with a past medical history of DVT and PE diagnosed one year ago completed a course of anticoagulation and no longer on anticoagulants, COPD with continued nicotine dependence, and hypothyroidism. He presented to the emergency department with a chief complaint of left-sided pleuritic chest pain and shortness of breath beginning approximately 2 days ago and progressively worsening. Patient underwent full evaluation in the emergency department. Vital signs and blood pressure 121/68, heart rate 73, respiratory rate 19, temp 99.1F, SpO2 of 97% on room air. EKG completed showing normal sinus rhythm at 71 bpm. Chest x-ray negative for acute cardiopulmonary process. Labs completed and reviewed. CBC showing mild thr ombocytopenia with platelet count of 148 otherwise normal findings. BMP unremarkable. Liver profile showing normal findings. Troponin negative at less than 0.012. Influenza A, influenza B, RSV, and Covid PCR were also negative. D-dimer completed and was elevated at 9.14. Patient then underwent a CTA chest to rule out pulmonary emboli. CTA chest was completed showing acute pulmonary emboli in the bilateral segmental and subsegmental lower branches with mildly prominent right ventricle concerning for a right heart strain. Patient was started on high intensity heparin infusion and admitted under our services of consultation to pulmonology and hematology. Echocardiogram was completed showing preserved EF at 50-55% and ruling out right heart strain showing normal right ventricular size and systolic function, mild tricuspid regurgitation and no evidence of pulmonary hypertension. Venous Doppler left lower extremity positive for DVT mid popliteal to proximal posterior tibial veins and Venous Doppler right lower extremity negative for DVT. Patient was evaluated by web development consultant/and underwent hypercoagulable workup and to follow-up in office with web development consultant to discuss these results as many labs take days to result.. Patient was transitioned from heparin infusion to oral anticoagulation with Eliquis 10 mg twice daily x 7 days and then 5 mg twice daily thereafter. Patient was informed that he will likely require lifelong anticoagulation secondary to recurrent pulmonary emboli. Medically, patient is stable at this time. Patient does continue to have occasional pain in his back and is being discharged home with a 3 day supply of tramadol when needed for moderate pain and [place] when necessary for severe pain Eliquis prescription was sent to pharmacy and patient provided with insurance coupon for coverage $10 per month to ensure pt is able to continue and afford this medication as again he will likely require lifelong anticoagulation. Patient instructed that he will need to follow up outpatient with his PCP at [facility] in 1-2 days, paster hat lining in 1 week, and web development consultant in 1 week. Patient maintaining oxygen saturations on room air at rest and with ambulation and is medically stable for discharge home at this time. Physical exam: Vital signs reviewed and stable. General: Nontoxic, no distress and appears stated age. Derm: Skin warm and dry, normal coloration for ethnicity. Head: Atraumatic, normocephalic and symmetric. Eyes: EOMs intact, no lid lag, and anicteric sclera Mouth: no lip lesions, mucus membranes moist Cardiovascular: regular rate and rhythm with normal S1S2, no murmur, positive posterior tibial pulses bilaterally, and cap refill < 2 seconds. Lungs: Respirations even, regular, and unlabored on room air. Lungs CTA bilaterally, no rhonchi, no rales, no wheezing, and no accessory muscle usage. Abdominal: soft, nontender to palpation, no guarding, no appreciable organomegaly Ext: ROM intact. No gross muscle atrophy, unilateral lower extremity edema, left lower extremity with 1+ pitting edema, no contractures Neuro: Speech clear, face symmetrical and CN II-XII grossly intact with no noted focal neuro deficits Psych: Alert and oriented to person, place, time, and situation. Appropriate and pleasant affect. A total of 37 minutes of time were spent preparing this complex discharge summary. Pt was discharged on 01/24/23 at 11:35 AM. Patient was seen independently by Nurse Practitioner. This document was prepared using [employer] dictation software. Please allow for errors in physician scientist while rare they do occur. Patient Condition at Discharge: Stable Plan - Discharge Summary Discharge Rx Participant: Yes New Discharge Prescriptions: New HYDROcodone/APAP 5-325MG [[place] 5-325] 1 tab PO Q4HR PRN 3 Days #18 tab PRN Reason: Severe Pain (Scale 7 To 10) Apixaban [Eliquis Starter Pack (for VTE)] 5 - 10 mg PO DIRECTED 30 Days #1 each traMADol HCl [Ultram] 50 mg PO Q6H PRN #18 tab PRN Reason: Moderate Pain (Scale 4 To 6) Continue Levothyroxine Sodium [Synthroid] 50 mcg PO HS Albuterol Inhaler [Ventolin Hfa Inhaler] 2 puff INHALATION RT-QID PRN PRN Reason: Shortness Of Breath Discharge Medication List Levothyroxine Sodium [Synthroid] 50 mcg PO HS 08/22/21 [History] Albuterol Inhaler [Ventolin Hfa Inhaler] 2 puff INHALATION RT-QID PRN 01/21/23 [History] Apixaban [Eliquis Starter Pack (for VTE)] 5 - 10 mg PO DIRECTED 30 Days #1 each 01/24/23 [Rx] HYDROcodone/APAP 5-325MG [[place] 5-325] 1 tab PO Q4HR PRN 3 Days #18 tab 01/24/23 [Rx] traMADol HCl [Ultram] 50 mg PO Q6H PRN #18 tab 01/24/23 [Rx] Follow up Appointment(s)/Referral(s): Enzo Domingo MD [STAFF PHYSICIAN] - 1 Week Qamar Rhodes DO [Doctor of Osteopathic Medicine] - 1 Week [facility] [Primary Care Provider] - 1-2 days Patient Instructions/Handouts: Pulmonary Embolism (DC), Deep Vein Thrombosis (DC) Activity/Diet/Wound Care/Special Instructions: Activity: As tolerated. Take breaks as needed. Diet: Heart healthy and carb consistent diet. Avoid salts, or foods with hidden salts such as canned or boxed foods and frozen dinners. Extra salt makes your heart work harder and traps the fluid in your body for longer. Special Instructions: Take all of your medications as directed and remember to keep all of your doctor's appointments and follow-up as needed. You are also being discharged home on a blood thinner, Eliquis. This is very important to take daily as directed until otherwise advised by your paster hat lining-Dr. Rhodes. Being that you are being placed on a blood thinner it is very important to watch for any signs of bleeding and notify your doctor immediately if you notice any bleeding. It is also important to remove any trip hazards such as rugs or loose extension cords from your home to prevent unnecessary falls and if you do experience a fall or head injury, it is extremely important to be evaluated by a medical provider immediately to ensure no internal bleeding. I would like to thank you again for your service, it is always an honor to provide care for a !!! Thank you for allowing us to participate in your care, it was truly a pleasure having you for our patient!!! Discharge/Stand Alone Forms: Work/School Release / Restrict Discharge Disposition: HOME SELF-CARE
[2023-01-24 12:24] VITALS: BP 110/59; PULSE 59; TEMP 98.3
[2023-01-24 13:36] LABS: APTT 179 Sec(s) (<43); APTT 1:1 Mix 110 Sec(s) (<43); DRVVT 1:1 Mix 39 Sec(s) (<44); Dilute Russell Viper Venom 47 Sec(s) (<44); Hexagonal Phase Neutralization Positive (Negative)
--- NOTE | 2023-01-24 18:22 | P.PN ---
Subjective Progress Note Date: 01/24/23 Principal diagnosis: recurrent PE At today's visit patient is resting comfortably in bedside chair. Patient was reporting improvement in breathing. Denies shortness of breath. Patient has been transitioned to Eliquis. Plan is for discharge today Objective - Vital Signs Vital signs: Vital Signs Temp 98.3 F 01/24/23 12:00 Pulse 59 L 01/24/23 12:00 Resp 18 01/24/23 12:00 BP 110/59 01/24/23 12:00 Pulse Ox 97 01/24/23 12:00 FiO2 Intake & Output 01/23/23 01/24/23 01/24/23 18:59 06:59 18:59 Intake Total 406.037 245 Balance 406.037 245 Intake: Intake, IV Titration 46.037 Amount Heparin Sod,Pork in 0.45% 46.037 NaCl 25,000 unit In 0.45 % NaCl 1 250ml.bag @ 18 UNITS/KG/HR 14.125 mls/hr IV .[id number] [facility] Rx#: [id number] Oral 360 245 Other: Voiding Method Toilet Toilet # Voids 1 1 2 - Constitutional General appearance: Present: average body habitus, no acute distress - EENT Eyes: Present: anicteric sclerae, EOMI ENT: Present: hearing grossly normal - Respiratory Details: breathing is even and unlabored - Cardiovascular Details: skin warm and dry - Integumentary Integumentary: Absent: cyanotic - Neurologic Neurologic: Present: CNII-XII intact - Musculoskeletal Musculoskeletal: Present: strength equal bilaterally - Psychiatric Psychiatric: Present: A&O x's 3 - Labs CBC & Chem 7: 01/24/23 07:43 01/24/23 07:43 Labs: Abnormal Lab Results - Last 24 Hours (Table) 01/22/23 01/24/23 01/24/23 Range/Units 17:25 07:43 07:43 RBC 4.20 L (4.30-5.90) m/uL MCV 101.9 H (80.0-100.0) fL APTT 65.2 H (22.0-30.0) sec Lupus Anticoag aPTT 179 H (<43) Sec(s) Lupus Anticoag PTT Mix 110 H (<43) Sec(s) Dil Jason Viper Venom 47 H (<44) Sec(s) Lupus Hexagonal Phase Positive A (Negative) Glucose (74-99) mg/dL Total Protein (6.3-8.2) g/dL Albumin (3.5-5.0) g/dL 01/24/23 Range/Units 07:43 RBC (4.30-5.90) m/uL MCV (80.0-100.0) fL APTT (22.0-30.0) sec Lupus Anticoag aPTT (<43) Sec(s) Lupus Anticoag PTT Mix (<43) Sec(s) Dil Jason Viper Venom (<44) Sec(s) Lupus Hexagonal Phase (Negative) Glucose 139 H (74-99) mg/dL Total Protein 5.7 L (6.3-8.2) g/dL Albumin 3.3 L (3.5-5.0) g/dL Assessment and Plan (1) Bilateral pulmonary embolism Status: Acute Priority: High Code(s): I26.99 - OTHER PULMONARY EMBOLISM WITHOUT ACUTE COR PULMONALE SNOMED Code(s): 52238684 (2) DVT (deep venous thrombosis) Status: Acute Priority: High Code(s): I82.409 - ACUTE EMBOLISM AND THOMBOS UNSP DEEP VN UNSP LOWER EXTREMITY SNOMED Code(s): 663043069 Plan: Recurrent PE, LLE DVT: -Significant history of pulmonary embolism and nicotine dependence. Patient reports he was diagnosed with a PE in August 2021 was treated with eliquis at that time for approximately 90 days and tolerated medication well. There were no known provoking factors at that time. Patient denies family history of blood clots or known blood clotting disorders. -CTA chest revealed acute pulmonary emboli in the bilateral segmental and subsegmental lower lobe branches. With mildly prominent right ventricle concerning for mild right heart strain. Lower extremity Dopplers revealed DVT in left mid popliteal to proximal posterior tibial veins. Patient has been started on heparin drip. -Pt denies any provoking factors. Due to recurrence of PE and unprovoked nature, would recommend life long anticoagulation. Since he tolerated Eliquis well previously, this would reasonable to restart pt on the same. Spoke with IM team, plan to transition to eliquis today and for discharge -APLS workup ordered. Cardiolipin negative, beta 2 glycoprotein pending. Lupus anticoagulant positive, but this expected as pt has been anticoagulated with heparin, -Will schedule clinic f/u in the next 3-4 and will review pending labs Pt updated on plan of care and was agreeable .
== END 2023-01-24 16:04 | disposition home or self-care (01) | DRG 175 ==
LOC: EC 21:00 → 3SCARD 01-22 00:17
PROVIDERS: ADMIT Internal Medicine; ATTEND Internal Medicine
DX: I26.94 Multiple subsegmental thrombotic pulmonary emboli without acute cor pulmonale (principal); J96.01 Acute respiratory failure with hypoxia; I82.431 Acute embolism and thrombosis of right popliteal vein; I82.441 Acute embolism and thrombosis of right tibial vein; J44.9 Chronic obstructive pulmonary disease, unspecified; D69.6 Thrombocytopenia, unspecified; F17.200 Nicotine dependence, unspecified, uncomplicated; E03.9 Hypothyroidism, unspecified; L40.9 Psoriasis, unspecified; Z86.711 Personal history of pulmonary embolism; Z79.01 Long term (current) use of anticoagulants; Z79.890 Hormone replacement therapy; Z86.718 Personal history of other venous thrombosis and embolism
CPT/HCPCS: 36415; 71046; 71275; 80053; 83605; 83735; 84484; 85025; 85027; 85379; 85598; 85610; 85613; 85730; 85732; 86147; 87636; 93005; 93306; 93970; 94640; 94760; 96374; 96375; 96376; 99291

== ENCOUNTER → 2023-04-01 | Outpatient (CLI) | payer BC ==
--- NOTE | 2023-04-01 11:19 | CT ---
EXAMINATION TYPE: CT angio chest CT DLP: 372.1 mGycm, Automated exposure control for dose reduction was used. DATE OF EXAM: 04/01/2023 10:51 AM COMPARISON: 01/21/2023. CLINICAL INDICATION:Male, 62 years old with history of I26.99; PE TECHNIQUE/CONTRAST: CTA scan of the thorax is performed with IV Contrast, patient injected with 80 mL of Isovue 370, MIP images are created and reviewed these are created on a separate workstation.. FINDINGS: Pulmonary Artery: Resolution of prior filling defects. There is no evidence for a filling defect with in the pulmonary vasculature to suggest acute pulmonary embolism. The pulmonary artery is of normal size. Lungs/Pleura: No evidence of focal consolidation, pleural effusion or pneumothorax. Mild centrilobula r emphysema changes are seen throughout the lungs. Airway: Large airways are patent. Heart: Heart is within normal limits for size. Vasculature: No evidence of aortic aneurysm. Mediastinum: No gross evidence of adenopathy. Musculoskeletal: No acute osseous abnormalities Soft Tissues: Unremarkable. Lower neck: No significant findings. Upper Abdomen: No significant findings. IMPRESSION: 1. Resolution of prior pulmonary emboli No evidence for new pulmonary emboli. 2. Mild emphysema changes. Follow up recommendations for incidental pulmonary nodules, if there are any, are per [employer] or [place].
== END | disposition home or self-care (01) ==
LOC: RADCTMAIN 10:27
PROVIDERS: ATTEND Internal Medicine Critical Care Medicine
DX: I26.99 Other pulmonary embolism without acute cor pulmonale (principal); J43.2 Centrilobular emphysema
CPT/HCPCS: 71275; Q9967

== ENCOUNTER → 2023-09-03 | Outpatient (CLI) | payer OTHER ==
--- NOTE | 2023-09-04 11:01 | US ---
EXAMINATION TYPE: US arterial LE multilevel DATE OF EXAM: 09/03/2023 2:54 PM CLINICAL INDICATION: Male, 63 years old with history of I70.213 ATHSCL [place] ARTERIES OF EXTRM W INT RMT C; leg pain/burning lt > rt History of: Smoker: current Hypertension: N Diabetic: N Hyperlipidemia: N TIA/CVA: N Previous Vascular Surgery: N CAD: N MA: N Vascular Ulcers: N Claudication: N Gangrene: N Doppler Waveforms: Right: Multiphasic Left: monophasic DP Right Brachial Pressure: 101 Left Brachial Pressure: 109 Ankle-Brachial Indices: Right: 1.3 Left: 0.9 (Vessel hardening > 1.4; Normal 0.9 - 1.4, Moderate 0.7 - 0.9, Severe 0.5-0.7) normal right leg, mode rate PAD left leg Limited exam. Two techs attempted to obtain left HEMMER CHAINSTITCH waveforms to no avail. IMPRESSION: 1. Moderate Peripheral vascular disease identified within the left trifurcation vessels.
--- NOTE | 2023-09-04 11:14 | US ---
EXAMINATION TYPE: US venous doppler duplex LE BI DATE OF EXAM: 09/03/2023 2:21 PM COMPARISON: 01/22/23 CLINICAL INDICATION: Male, 63 years old with history of I70.213 ATHSCL [place] ARTERIES OF EXTRM W INT RMT C; leg pain/burning lt > rt SIDE PERFORMED: Bilateral TECHNIQUE: The lower extremity deep venous system is examined utilizing real time linear array sonog violeta with graded compression, doppler sonography and color-flow sonography. VESSELS IMAGED: Common Femoral Vein Deep Femoral Vein Greater Saphenous Vein * Femoral Vein Popliteal Vein Small Saphenous Vein * Proximal Calf Veins (* superficial vessels) Right Leg: Negative for DVT Left Leg: Negative for DVT, reflux noted distal popliteal vein IMPRESSION: 1. Bilateral lower extremity ultrasound negative for deep venous thrombosis.
== END | disposition home or self-care (01) ==
LOC: RADUSWWP 13:46
PROVIDERS: ATTEND Family Medicine
DX: I73.89 Other specified peripheral vascular diseases (principal); I70.213 Atherosclerosis of native arteries of extremities with intermittent claudication, bilateral legs
CPT/HCPCS: 93922; 93970

== ENCOUNTER 2023-11-27 09:02 | Day surgery (SDC) | payer OTHER ==
--- NOTE | 2023-11-27 07:40 | P.GSHP ---
History of Present Illness H&P Date: 11/27/23 CHIEF COMPLAINT: Colon screen HISTORY OF PRESENT ILLNESS: The patient is a 63-year-old male who presents for colon screen. Lower endoscopy was offered for further evaluation and management. PAST MEDICAL HISTORY: Please see list. PAST SURGICAL HISTORY: Please see list. MEDICATIONS: Please see list. ALLERGIES: Please see list. SOCIAL HISTORY: No illicit drug use FAMILY HISTORY: No reports of Crohn disease or ulcerative colitis. REVIEW OF ORGAN SYSTEMS: CONSTITUTIONAL: No reports of fevers or chills. PHYSICAL EXAM: VITAL SIGNS: Stable GENERAL: Well-developed pleasant in no acute distress. HEENT: No scleral icterus. Extraocular movements grossly intact. Moist buccal mucosa. NECK: Supple without lymphadenopathy. CHEST: Unlabored respirations. Equal bilateral excursions. CARDIOVASCULAR: Regular rate and rhythm. Distal 2+ pulses. ABDOMEN: Soft, nontender, nondistended. MUSCULOSKELETAL: No clubbing, cyanosis, or edema. ASSESSMENT: 1. Colon screen. PLAN: 1. Recommend proceeding with a lower endoscopy Past Medical History Past Medical History: COPD, Deep Vein Thrombosis (DVT), Pulmonary Embolus (PE), Skin Disorder, Thyroid Disorder Additional Past Medical History / Comment(s): DVT & PE's 2022, psoriasis left foot History of Any Multi-Drug Resistant Organisms: None Reported Past Surgical History: No Surgical Hx Reported Additional Past Surgical History / Comment(s): COLONOSCOPIES Past Anesthesia/Blood Transfusion Reactions: No Reported Reaction Smoking Status: Current every day smoker - Past Family History Father Family Medical History: Cancer Additional Family Medical History / Comment(s): LEUKEMIA Mother Family Medical History: Cancer Additional Family Medical History / Comment(s): COLON Medications and Allergies Home Medications Medication Instructions Recorded Confirmed Type Levothyroxine Sodium [Synthroid] 50 mcg PO HS 08/22/21 11/22/23 History Albuterol Inhaler [Ventolin Hfa 2 puff INHALATION RT-QID PRN 01/21/23 11/22/23 History Inhaler] Apixaban [Eliquis Starter Pack 5 mg PO BID 11/22/23 11/22/23 History (for VTE)] Allergies Allergy/AdvReac Type Severity Reaction Status Date / Time Penicillins Allergy Rash/Hives Verified 11/22/23 10:49
[~2023-11-27 09:02] MED LIST changes: -LACTATED RINGERS 1,000 ML IV SCH; +LIDOCAINE 1% (10MG/ML) FOR IV START INTRADERMA PRN; -LIDOCAINE 1% 20 ML VIAL (10MG/ML) FOR IV START INTRADERMA PRN
[2023-11-27] MEDS: IV FLUID CONTINUATION 1,000 ML IV ONE (09:29)
[2023-11-27] MEDS: LACTATED RINGERS 1,000 ML IV SCH (09:39)
[2023-11-27 09:45] VITALS: TEMP 97.9
[2023-11-27] MEDS ORDERED: PROPOFOL 10 MG/ML 20 ML VIAL IV ONE (10:53)
--- NOTE | 2023-11-27 11:34 | P.PCN ---
Date of Procedure: 11/27/23 Description of Procedure: PREOPERATIVE DIAGNOSIS: Colonoscopy screening History of anticoagulant use POSTOPERATIVE DIAGNOSIS: Tubular adenoma rectum Sigmoid diverticulosis OPERATION: Colonoscopy to the ileocecal valve and appendiceal orifice, cecum Colonoscopy with hot snare polypectomy SURGEON: Anna Russell MD. ANESTHESIA: MAC. INDICATIONS: The patient is an 63-year-old male who presents for colonoscopy screening. He is on blood thinners. Benefits and risks were described and informed consent was obtained. DESCRIPTION OF PROCEDURE: The patient had undergone Sutab prep. The patient had been brought into the operating room and laid in the left lateral decubitus position. After adequate intravenous sedation, the rectum was examined with 2% lidocaine jelly. The prostate was unremarkable. External hemorrhoids were encountered. The rectal tone was within normal limits. No lesions were palpated in the rectal vault. An Olympus colonoscope was advanced until the cecum, ileocecal valve and appendiceal orifice were clearly viewed. The prep was good. Sigmoid diverticulosis was encountered. Colonic polyps were found and removed. No evidence of focal colitis was found. Retroflexion of the scope demonstrated grade 2 internal hemorrhoids without active bleeding or inflammation. The colon was desufflated. The patient had tolerated the procedure well. Withdrawal time was over 6 minutes. FINDINGS: Aronchick preparation quality scale 2 (1-5) Internal hemorrhoids, grade 2 External hemorrhoids, grade 2. No arteriovenous malformations. Sigmoid diverticulosis Removal of 1 polyps: - Snare polypectomy 10 cm from the anal verge, 8 mm tubulovillous adenoma, rectum No focal colitis. RECOMMENDATIONS: Repeat colonoscopy 3 years, 2026 Plan - Discharge Summary Discharge Rx Participant: No New Discharge Prescriptions: Continue Levothyroxine Sodium [Synthroid] 50 mcg PO HS Albuterol Inhaler [Ventolin Hfa Inhaler] 2 puff INHALATION RT-QID PRN PRN Reason: Shortness Of Breath Apixaban [Eliquis Starter Pack (for VTE)] 5 mg PO BID Discharge Medication List Levothyroxine Sodium [Synthroid] 50 mcg PO HS 08/22/21 [History] Albuterol Inhaler [Ventolin Hfa Inhaler] 2 puff INHALATION RT-QID PRN 01/21/23 [History] Apixaban [Eliquis Starter Pack (for VTE)] 5 mg PO BID 11/22/23 [History] Follow up Appointment(s)/Referral(s): Anna Russell MD [STAFF PHYSICIAN] - As Needed Patient Instructions/Handouts: Colorectal Polyps (GEN), Diverticulosis (DC) Activity/Diet/Wound Care/Special Instructions: Repeat colonoscopy 3 years, 2026 Discharge Disposition: HOME SELF-CARE
[2023-11-27 11:41] VITALS: BP 109/73; PULSE 56; RESP 17
== END 2023-11-27 12:15 | disposition home or self-care (01) ==
LOC: ORWHC2ENDO 09:02
PROVIDERS: ATTEND Surgery Plastic and Reconstructive Surgery
DX: Z12.11 Encounter for screening for malignant neoplasm of colon (principal); D12.8 Benign neoplasm of rectum; K57.30 Diverticulosis of large intestine without perforation or abscess without bleeding; J44.9 Chronic obstructive pulmonary disease, unspecified; F17.200 Nicotine dependence, unspecified, uncomplicated; Z79.01 Long term (current) use of anticoagulants; Z79.890 Hormone replacement therapy; Z86.711 Personal history of pulmonary embolism; Z86.718 Personal history of other venous thrombosis and embolism; Z88.0 Allergy status to penicillin
CPT/HCPCS: 45385; 88305

== ENCOUNTER → 2024-01-03 | Outpatient (CLI) | payer OTHER ==
--- NOTE | 2024-01-03 14:56 | CT ---
EXAMINATION TYPE: CT abdomen wo con CT DLP: 535 mGycm, Automated exposure control for dose reduction was used. DATE OF EXAM: 01/03/2024 2:10 PM COMPARISON: CTA chest 04/01/2023 CLINICAL INDICATION:Male, 63 years old with history of R19.00 INTRA-ABD AND PELVIC SWELLING, MASS AND LUM; Lump on belly button and left side of abdomen x2wks. TECHNIQUE: Standard CT of the abdomen without IV or oral contrast. Lack of IV or oral contrast limi ts evaluation of solid and hollow organ viscera. Coronal and sagittal reformats were performed. FINDINGS: LOWER CHEST: Unremarkable ABDOMEN LIVER: Unremarkable noncontrast appearance GALLBLADDER AND BILE DUCTS: Unremarkable noncontrast appearance PANCREAS: Unremarkable noncontrast appearance SPLEEN: Unremarkable noncontrast appearance ADRENAL GLANDS: Unremarkable noncontrast appearance. KIDNEYS AND URETERS: No evidence of hydronephrosis or renal calculus. STOMACH AND BOWEL: Stomach and duodenum are unremarkable . No focal bowel wall thickening or surround ing inflammatory changes. Sigmoid diverticulosis. The appendix is within normal limits. No evidence o f bowel obstruction. PERITONEUM: No evidence of pneumoperitoneum or free fluid. VASCULATURE: No evidence of aortic aneurysm. MUSCULOSKELETAL: No acute osseous abnormalities. Mild multilevel degenerative disease most pronounced at L5-S1. Mild retrolisthesis of L3 on L4. LYMPH NODES: No gross evidence for lymphadenopathy. SOFT TISSUE/ABDOMINAL WALL: Umbilical hernia containing fat and mesenteric vessels with fat stranding . Defect measures 1.7 x 1.3 cm. IMPRESSION: 1. Small umbilical hernia containing fat and fat stranding. Raises concern for strangulation of mese nteric fat. 2. Sigmoid diverticulosis. [facility], , 01/03/2024 2:53 PM
== END | disposition home or self-care (01) ==
LOC: RADCTMAIN 13:55
PROVIDERS: ATTEND Family Medicine
CPT/HCPCS: 74150

== ENCOUNTER → 2024-04-16 | Outpatient (CLI) | payer OTHER ==
--- NOTE | 2024-04-16 08:34 | CTL ---
EXAMINATION TYPE: CT Low Dose Lung DATE OF EXAM ORDERED: 04/16/2024 COMPARISON: CTA chest 04/01/2023, 10/31/2021, 08/22/2021, CT Low Dose Lung 11/01/2022, 09/14/2020 CLINICAL INDICATION: Male, 63 years old with history of Z12.2 Screening; PHH, lung CA screening, Lung cancer screening, History of Smoking/tobacco use. TECHNIQUE: Low dose computed tomography scan was performed through the chest at 1 mm thick sections a nd reconstructed images in multiple planes at 1 mm and [address] DLP: 125.[address] CTDI: 3.1 mGy Automated exposure control for dose reduction was used. CT DIAGNOSTIC QUALITY: Satisfactory FINDINGS: Nodules: No clinically significant pulmonary nodules. LUNGS: COPD: Severity: Mild centrilobular and paraseptal emphysematous changes with upper lobe predominance. Fibrosis: Severity: None Lymph nodes: None Other findings: Biapical pleural-parenchymal scarring. RIGHT PLEURAL SPACE: Effusion: None Calcification: None Thickening: None Pneumothorax: None LEFT PLEURAL SPACE: Effusion: None Calcification: None Thickening: None Pneumothorax: None HEART: Heart Size: Normal Coronary Calcification: Mild within the LAD. Pericardial Effusion: None OTHER FINDINGS: Upper abdomen: None Bony thorax: None Supraclavicular region: None Other: None IMPRESSION: 1. No clinically significant pulmonary nodules. 2. Mild COPD changes. CT LUNG RAD AND CT CHEST RECOMMENDATION: Lung-Rad 1 Negative: Continue annual screening with LDCT in 12 months. S Modifier (other clinically significant findings): None [facility], , 04/16/2024 8:32 AM
== END | disposition home or self-care (01) ==
LOC: RADCTMAIN 08:06
PROVIDERS: ATTEND Family Medicine
DX: Z12.2 Encounter for screening for malignant neoplasm of respiratory organs (principal); J44.9 Chronic obstructive pulmonary disease, unspecified; F17.210 Nicotine dependence, cigarettes, uncomplicated
CPT/HCPCS: 71271

== ENCOUNTER → 2024-04-16 | Outpatient (CLI) | payer OTHER | LOC: CPPFTMAIN 08:12 | PROVIDERS: ATTEND Internal Medicine Critical Care Medicine | DX: J44.9 Chronic obstructive pulmonary disease, unspecified (principal); F17.210 Nicotine dependence, cigarettes, uncomplicated; Z88.0 Allergy status to penicillin | CPT/HCPCS: 94060; 94726; 94729 ==

== ENCOUNTER 2024-05-11 20:54 | Inpatient (IN) | payer OTHER, BC ==
--- NOTE | 2024-05-11 21:32 | ED ---
SOB HPI - General Chief Complaint: Shortness of Breath Stated Complaint: Difficulty Breathing Time Seen by Provider: 05/11/24 21:08 Source: patient Mode of arrival: ambulatory Limitations: no limitations - History of Present Illness Initial Comments: This patient is a 63-year-old man with history of COPD. He presents here to have evaluation for worsening of his respiratory status over the past day. He states he has had cough and is starting to have some yellow sputum. He has had shortness of breath, wheezing, body aches associated with this. Patient states that as a result of coughing he is also having periumbilical pain as he does have a hernia there. Patient has not had change in bowel movements. No vomiting although he has had some cough associated retching. MD Complaint: shortness of breath, cough Onset/Timin -: days(s) Radiation: other (periumbilical) Severity: mild Quality: aching Consistency: constant Improves With: nothing Worsens With: nothing Known History Of: COPD Associated Symptoms: cough, sputum production Treatments Prior to Arrival: none - Related Data Home Oxygen Therapy: No Home Medications Medication Instructions Recorded Confirmed Albuterol Inhaler [Ventolin Hfa 2 puff INHALATION RT-QID PRN 01/21/23 05/12/24 Inhaler] Apixaban [Eliquis] 5 mg PO BID 05/12/24 05/12/24 Fluticasone Propion/Salmeterol 1 puff INHALATION RT-BID 05/12/24 05/12/24 [Fluticasone-Salmeterol 500-50] Levothyroxine Sodium [Synthroid] 75 mcg PO HS 05/12/24 05/12/24 Previous Rx's Medication Instructions Recorded Famotidine [Pepcid] 20 mg PO DAILY #14 tab 05/15/24 Tiotropium 18 Mcg/Puff [Spiriva] 2 puff INHALATION DAILY #30 each 05/15/24 metFORMIN HCL [Glucophage] 500 mg PO BID #90 tab 05/15/24 predniSONE [Deltasone] 40 mg PO DAILY #2 tab 05/15/24 Allergies Allergy/AdvReac Type Severity Reaction Status Date / Time Penicillins Allergy Rash/Hives Verified 05/11/24 21:00 Review of Systems ROS Statement: Those systems with pertinent positive or pertinent negative responses have been documented in the HPI. ROS Other: All systems not noted in ROS Statement are negative. Constitutional: Denies: fever, chills, weakness Respiratory: Reports: as per HPI, cough, dyspnea, wheezes. Denies: hemoptysis Cardiovascular: Reports: dyspnea on exertion. Denies: chest pain, palpitations, orthopnea, edema, syncope Gastrointestinal: Reports: as per HPI, abdominal pain. Denies: nausea, vomiting, diarrhea Genitourinary: Denies: dysuria, hematuria Musculoskeletal: Reports: myalgia. Denies: back pain Skin: Denies: rash Neurological: Reports: headache. Denies: weakness, numbness Past Medical History Past Medical History: COPD, Deep Vein Thrombosis (DVT), Pulmonary Embolus (PE), Skin Disorder, Thyroid Disorder Additional Past Medical History / Comment(s): DVT & PE's 2022, psoriasis left foot, hernia History of Any Multi-Drug Resistant Organisms: None Reported Past Surgical History: No Surgical Hx Reported Additional Past Surgical History / Comment(s): COLONOSCOPIES Past Anesthesia/Blood Transfusion Reactions: No Reported Reaction Past Psychological History: No Psychological Hx Reported Smoking Status: Current every day smoker Past Alcohol Use History: None Reported Past Drug Use History: None Reported - Past Family History Father Family Medical History: Cancer Additional Family Medical History / Comment(s): LEUKEMIA Mother Family Medical History: Cancer Additional Family Medical History / Comment(s): COLON General Exam Limitations: no limitations General appearance: alert, in no apparent distress Head exam: Present: atraumatic, normocephalic Eye exam: Present: normal appearance. Absent: scleral icterus, conjunctival injection ENT exam: Present: normal oropharynx Neck exam: Present: normal inspection Respiratory exam: Present: normal lung sounds bilaterally, wheezes. Absent: respiratory distress, rales, rhonchi, stridor, accessory muscle use, decreased breath sounds Cardiovascular Exam: Present: regular rate, normal rhythm, normal heart sounds. Absent: systolic murmur, diastolic murmur, rubs, gallop GI/Abdominal exam: Present: soft, hernia (Umbilical hernia that is currently reduced and nontender). Absent: distended, tenderness, guarding, rebound, rigid, mass Extremities exam: Present: normal inspection, normal capillary refill. Absent: pedal edema, calf tenderness Back exam: Present: normal inspection. Absent: CVA tenderness (R), CVA tenderness (L) Neurological exam: Present: alert Skin exam: Present: warm, dry, intact, normal color. Absent: rash Course Vital Signs 05/11/24 05/11/24 05/11/24 21:00 22:25 22:42 Temperature 99.8 F H Pulse Rate 96 77 84 Pulse Rate [ Pulse Oximetery ] Respiratory 18 Rate Blood Pressure 141/74 Blood Pressure [Left Arm] O2 Sat by Pulse 96 Oximetry 05/12/24 05/12/24 05/12/24 00:43 02:00 05:00 Temperature Pulse Rate 75 70 58 L Pulse Rate [ Pulse Oximetery ] Respiratory 18 18 20 Rate Blood Pressure 130/75 90/70 98/70 Blood Pressure [Left Arm] O2 Sat by Pulse 96 98 95 Oximetry 05/12/24 05/12/24 05/12/24 06:42 08:05 08:17 Temperature Pulse Rate 75 64 68 Pulse Rate [ Pulse Oximetery ] Respiratory 20 Rate Blood Pressure 115/96 Blood Pressure [Left Arm] O2 Sat by Pulse 96 Oximetry 05/12/24 05/12/24 05/12/24 08:35 11:23 11:34 Temperature 97.8 F Pulse Rate 88 68 72 Pulse Rate [ Pulse Oximetery ] Respiratory 22 Rate Blood Pressure 103/52 Blood Pressure [Left Arm] O2 Sat by Pulse 95 Oximetry 05/12/24 05/12/24 05/12/24 12:03 14:50 15:01 Temperature 97.6 F Pulse Rate 76 72 68 Pulse Rate [ Pulse Oximetery ] Respiratory 26 H Rate Blood Pressure 145/73 Blood Pressure [Left Arm] O2 Sat by Pulse 93 L Oximetry 05/12/24 05/12/24 05/12/24 15:30 17:13 18:11 Temperature 98.0 F Pulse Rate 90 69 68 Pulse Rate [ Pulse Oximetery ] Respiratory 19 18 22 Rate Blood Pressure 122/71 117/67 117/58 Blood Pressure [Left Arm] O2 Sat by Pulse 93 L 95 Oximetry 05/12/24 18:44 Temperature 97.9 F Pulse Rate Pulse Rate [ 72 Pulse Oximetery ] Respiratory 17 Rate Blood Pressure Blood Pressure 142/73 [Left Arm] O2 Sat by Pulse 96 Oximetry Medical Decision Making - Medical Decision Making The patient had chest x-ray that I interpreted as negative for acute infiltrate, pneumothorax, congestive heart failure. COPD changes present Was pt. sent in by a medical professional or institution ([facility] Caceres, AUDIO VIDEO TECHNICIAN, urgent care, hospital, or prison...) When possible be specific @ -[No] Did you speak to anyone other than the patient for history (EMS, parent, family, police, friend...)? What history was obtained from this source @ -[No] Did you review nursing and triage notes (agree or disagree)? Why? @ -[I reviewed and agree with nursing and triage notes] Were old charts reviewed (outside hosp., previous admission, EMS record, old EKG, old radiological studies, urgent care reports/EKG's, prison records)? Report findings @ -[No old charts were reviewed] Differential Diagnosis (chest pain, altered mental status, abdominal pain women, abdominal pain men, vaginal bleeding, weakness, fever, dyspnea, syncope, headache, dizziness, GI bleed, back pain, seizure, CVA, palpatations, mental health, musculoskeletal)? @ -[Differential Dyspnea: Coronary syndrome, arrhythmia, tamponade, asthma, COPD, pulmonary embolism, pneumonia, pneumothorax, pulmonary effusion, anaphylaxis, diabetic ketoacidosis, flailed chest, pulmonary contusion, diaphragmatic rupture, anemia, neuromuscular, this is not meant to be an all-inclusive list. EKG interpreted by me (3pts min.). @ -[I interpreted as above] X-rays interpreted by me (1pt min.). @ -[I interpreted as above CT interpreted by me (1pt min.). @ -[None done] U/S interpreted by me (1pt. min.). @ -[None done] What testing was considered but not performed or refused? (CT, X-rays, U/S, labs)? Why? @ -[None] What meds were considered but not given or refused? Why? @ -[None] Did you discuss the management of the patient with other professionals (professionals i.e. CLARK Caceres, AUDIO VIDEO TECHNICIAN, lab, RT, psych nurse, social media senior associate, extractive metallurgist, teacher, veterinary medical officer, child welfare caseworker)? Give summary @ -[Case discussed with admitting physician and treatment recommendations incorporated Was smoking cessation discussed for >3mins.? @ -[No] Was critical care preformed (if so, how long)? @ -[No] Were there social determinants of health that impacted care today? How? (Homelessness, low income, unemployed, alcoholism, drug addiction, transportation, low edu. Level, literacy, decrease access to med. care, [facility], rehab)? @ -[No] Was there de-escalation of care discussed even if they declined (Discuss DNR or withdrawal of care, Hospice)? DNR status @ -[No] What co-morbidities impacted this encounter? (DM, HTN, Smoking, COPD, CAD, Cancer, CVA, ARF, Chemo, Hep., AIDS, mental health diagnosis, sleep apnea, morbid obesity)? @ -[COPD Was patient admitted / discharged? Hospital course, mention meds given and route, prescriptions, significant lab abnormalities, going to OR and other pertinent info. @ -[Patient is 63-year-old man with history of COPD who presents with worsening of his underlying respiratory condition. The patient was started on treatment in emergency department but not feeling adequately improved for discharge. Will admit to have further inpatient treatment as well as pulmonology consultation. Undiagnosed new problem with uncertain prognosis? @ -[No] Drug Therapy requiring intensive monitoring for toxicity (Heparin, Nitro, Insulin, Cardizem)? @ -[No] Were any procedures done? @ -[No] Diagnosis/symptom? @ -[Acute exacerbation of COPD Acute, or Chronic, or Acute on Chronic? @ -[Acute on chronic Uncomplicated (without systemic symptoms) or Complicated (systemic symptoms)? @ -[default] Side effects of treatment? @ -[No] Exacerbation, Progression, or Severe Exacerbation? @ -[Exacerbation of COPD Poses a threat to life or bodily function? How? (Chest pain, [place], [place], pneumonia, PE, COPD, DKA, ARF, appy, cholecystitis, CVA, Diverticulitis, Homicidal, Suicidal, threat to staff... and all critical care pts) @ -[Low risk but requires further treatment All treatments are based on ideal body weight as in ED triage - Lab Data Result diagrams: 05/15/24 06:45 05/15/24 06:45 Lab Results 05/11/24 05/11/24 05/11/24 Range/Units 21:44 21:44 21:44 WBC 8.5 (3.8-10.6) k/uL RBC 5.15 (4.30-5.90) m/uL Hgb 16.3 (13.0-17.5) gm/dL Hct 51.7 (39.0-53.0) % MCV 100.4 H (80.0-100.0) fL MCH 31.6 (25.0-35.0) pg MCHC 31.5 (31.0-37.0) g/dL RDW 12.8 (11.5-15.5) % Plt Count 162 (150-450) k/uL MPV 7.4 Neutrophils % 81 % Lymphocytes % 7 % Monocytes % 8 % Eosinophils % 2 % Basophils % 0 % Neutrophils # 6.8 (1.3-7.7) k/uL Lymphocytes # 0.6 L (1.0-4.8) k/uL Monocytes # 0.7 (0-1.0) k/uL Eosinophils # 0.2 (0-0.7) k/uL Basophils # 0.0 (0-0.2) k/uL PT 10.7 (10.0-12.5) sec INR 1.0 (<1.2) APTT 24.1 (22.0-30.0) sec Sodium 135 L (137-145) mmol/L Potassium 5.1 (3.5-5.1) mmol/L Chloride 97 L (98-107) mmol/L Carbon Dioxide 28 (22-30) mmol/L Anion Gap 10 mmol/L BUN 12 (9-20) mg/dL Creatinine 1.02 (0.66-1.25) mg/dL Est GFR (CKD-EPI)AfAm >90 (>60 ml/min/1.73 sqM) Est GFR (CKD-EPI)NonAf 78 (>60 ml/min/1.73 sqM) Glucose 117 H (74-99) mg/dL Plasma Lactic Acid Mega (0.7-2.0) mmol/L Calcium 9.3 (8.4-10.2) mg/dL Total Bilirubin 0.8 (0.2-1.3) mg/dL AST 24 (17-59) U/L ALT 28 (4-49) U/L Alkaline Phosphatase 77 (38-126) U/L Troponin I (0.000-0.034) ng/mL NT-Pro-B Natriuret Pep 108 pg/mL Total Protein 7.3 (6.3-8.2) g/dL Albumin 4.7 (3.5-5.0) g/dL Influenza Type A (PCR) (Not Detectd) Influenza Type B (PCR) (Not Detectd) RSV (PCR) (Not Detectd) SARS-CoV-2 (PCR) (Not Detectd) 05/11/24 05/11/24 05/11/24 Range/Units 21:44 21:44 21:44 WBC (3.8-10.6) k/uL RBC (4.30-5.90) m/uL Hgb (13.0-17.5) gm/dL Hct (39.0-53.0) % MCV (80.0-100.0) fL MCH (25.0-35.0) pg MCHC (31.0-37.0) g/dL RDW (11.5-15.5) % Plt Count (150-450) k/uL MPV Neutrophils % % Lymphocytes % % Monocytes % % Eosinophils % % Basophils % % Neutrophils # (1.3-7.7) k/uL Lymphocytes # (1.0-4.8) k/uL Monocytes # (0-1.0) k/uL Eosinophils # (0-0.7) k/uL Basophils # (0-0.2) k/uL PT (10.0-12.5) sec INR (<1.2) APTT (22.0-30.0) sec Sodium (137-145) mmol/L Potassium (3.5-5.1) mmol/L Chloride (98-107) mmol/L Carbon Dioxide (22-30) mmol/L Anion Gap mmol/L BUN (9-20) mg/dL Creatinine (0.66-1.25) mg/dL Est GFR (CKD-EPI)AfAm (>60 ml/min/1.73 sqM) Est GFR (CKD-EPI)NonAf (>60 ml/min/1.73 sqM) Glucose (74-99) mg/dL Plasma Lactic Acid Mega 1.8 (0.7-2.0) mmol/L Calcium (8.4-10.2) mg/dL Total Bilirubin (0.2-1.3) mg/dL AST (17-59) U/L ALT (4-49) U/L Alkaline Phosphatase (38-126) U/L Troponin I <0.012 (0.000-0.034) ng/mL NT-Pro-B Natriuret Pep pg/mL Total Protein (6.3-8.2) g/dL Albumin (3.5-5.0) g/dL Influenza Type A (PCR) Not Detected (Not Detectd) Influenza Type B (PCR) Not Detected (Not Detectd) RSV (PCR) Not Detected (Not Detectd) SARS-CoV-2 (PCR) Not Detected (Not Detectd) - EKG Data -: EKG Interpreted by [facility] EKG shows normal: sinus rhythm, axis (Normal), intervals ( normal), QRS complexes (Normal), ST-T waves (Normal) Rate: normal (83 bpm) Disposition Clinical Impression: COPD exacerbation Disposition: ADMITTED IP TO THIS HOSP Condition: Stable Is patient prescribed a controlled substance at d/c from ED?: No
[2024-05-11] MEDS: predniSONE 20 MG TAB PO STA (21:45)
[2024-05-11 21:59] LABS: Basophils % (A) 0 %; Eosinophils # (A) 0.2 k/uL (0-0.7); Eosinophils % (A) 2 %; HCT 51.7 % (39.0-53.0); HGB 16.3 gm/dL (13.0-17.5); Lymphocytes # (A) 0.6 k/uL (1.0-4.8); Lymphocytes % (A) 7 %; MCH 31.6 pg (25.0-35.0); MCHC 31.5 g/dL (31.0-37.0); MCV 100.4 fL (80.0-100.0); Mean Platelet Volume 7.4; Monocytes # (A) 0.7 k/uL (0-1.0); Monocytes % (A) 8 %; Neutrophils # (A) 6.8 k/uL (1.3-7.7); Neutrophils % (A) 81 %; Platelet Count 162 k/uL (150-450); RBC 5.15 m/uL (4.30-5.90); RDW 12.8 % (11.5-15.5); WBC 8.5 k/uL (3.8-10.6)
[2024-05-11 22:10] LABS: Partial Thromboplastin Time 24.1 sec (22.0-30.0); Prothrombin Time 10.7 sec (10.0-12.5)
[2024-05-11 22:13] LABS: AST 24 U/L (17-59); African American GFR (CKD) >90 (>60 ml/min/1.73 sqM); Albumin 4.7 g/dL (3.5-5.0); Anion Gap 10 mmol/L; Blood Urea Nitrogen 12 mg/dL (9-20); Calcium 9.3 mg/dL (8.4-10.2); Carbon Dioxide 28 mmol/L (22-30); Chloride 97 mmol/L (98-107); Glucose 117 mg/dL (74-99); Non-African American GFR(CKD) 78 (>60 ml/min/1.73 sqM); Potassium 5.1 mmol/L (3.5-5.1); Sodium 135 mmol/L (137-145); Total Bilirubin 0.8 mg/dL (0.2-1.3); Total Protein 7.3 g/dL (6.3-8.2)
[2024-05-11 22:14] LABS: ALT 28 U/L (4-49); Alkaline Phosphatase 77 U/L (38-126)
[2024-05-11 22:22] LABS: NT-Pro-B-Type Natriuretic Pept 108 pg/mL
[2024-05-11] MEDS: ALBUTEROL NEBULIZED 2.5 MG/3 ML INHALATION STA (22:24)
[2024-05-11] MEDS: IPRATROPIUM-ALBUTEROL 3 ML NEB INHALATION STA (22:25)
[2024-05-11 22:32] LABS: Influenza A Not Detected (Not Detectd); Influenza B Not Detected (Not Detectd); RSV Not Detected (Not Detectd)
--- NOTE | 2024-05-11 23:40 | XR ---
EXAMINATION TYPE: XR chest 2V DATE OF EXAM: 05/11/2024 9:57 PM CLINICAL INDICATION:Male, 63 years old with history of difficulty breathing; PHH COMPARISON: Chest radiographs from TECHNIQUE: XR chest 2V Frontal view of the chest. FINDINGS: Lungs/Pleura: Lungs are hyperinflated. There are chronic interstitial markings with emphysema. No pne umothorax.. Pulmonary vascularity: Unremarkable. Heart/mediastinum: Cardiomediastinal silhouette is unremarkable. Musculoskeletal: No acute osseous pathology. Other findings: None IMPRESSION: COPD changes with no acute cardiopulmonary process.. [facility], , 05/11/2024 11:37 PM
[2024-05-12] MEDS ORDERED: ACETAMINOPHEN TAB 325 MG TAB PO PRN
[2024-05-12] MEDS ORDERED: IPRATROPIUM-ALBUTEROL 3 ML NEB INHALATION PRN
[2024-05-12] MEDS ORDERED: NALOXONE 0.4 MG/ML 1 ML VIAL IVP PRN
[2024-05-12] MEDS: DOXYCYCLINE 100 MG CAP PO SCH (00:42)
--- NOTE | 2024-05-12 04:18 | P.HPIM ---
History of Present Illness H&P Date: 05/12/24 Patient is a 63-year-old male with a PMH of COPD, history of DVT and PE on Eliquis, and hypothyroidism who presents to the emergency room with complaints of shortness of breath and cough. Patient reports that over the past few days, he has been experiencing progressively worsening cough productive of white and clear phlegm along with shortness of breath. Denies experiencing chest discomfort, lower extremity swelling, lower extremity pain, nausea, vomiting, diaphoresis, or dizziness. Reports using his inhalers multiple times at home without significant relief. Chest x-ray in the emergency room revealed findings of COPD. EKG revealed sinus rhythm with short LA interval at [address]/T wave changes noted as reviewed by me. Laboratory evaluation revealed a troponin less than 0.012, proBNP 108, sodium 135, chloride 97, glucose 117, with WBC count 8.5 and MCV 100.4. Respiratory viral panel was negative. ED documentation reviewed and case discussed with ED provider. Review of systems: Pertinent positives and negatives as discussed in HPI, a complete review of systems was performed and all other systems are negative. Physical examination: Vital signs reviewed General: non toxic, no distress, appears at stated age, normal weight Derm: no unusual rashes/lesions, warm Head: atraumatic, normocephalic, symmetric Eyes: EOMI, no lid lag, anicteric sclera, pupils equal round reactive to light ENT: Nose and ears atraumatic Neck: No cervical lymphadenopathy, trachea midline, supple Mouth: no lip lesion, mucus membranes moist Cardiovascular: S1S2 reg, no murmur, positive dorsalis pedis pulse bilateral, no edema Lungs: Diffuse expiratory and inspiratory wheezing without rhonchi or rales, no accessory muscle use Abdominal: soft, nontender to palpation, no guarding Ext: muscle strength 5 out of 5 in all 4 extremities grossly, no gross muscle atrophy, no contractures, Neuro: CN II-XI grossly intact, no gross focal neuro deficits Psych: Alert, oriented, appropriate affect Assessment: Acute COPD exacerbation Chronic conditions: History of PE and DVT, hypothyroidism Imaging: Chest x-ray in the emergency room revealed findings of COPD. EKG revealed sinus rhythm with short LA interval at [address]/T wave changes noted as reviewed by me. Data Review: Laboratory evaluation revealed a troponin less than 0.012, proBNP 108, sodium 135, chloride 97, glucose 117, with WBC count 8.5 and MCV 100.4. Respiratory viral panel was negative. Plan: Continue with Solu-Medrol 60 mg IV every 6 hourly Continue DuoNebs [id number] and as needed Continue doxycycline for now Resume home Symbicort Continue with patient's home meds once reconciled Pulmonary consulted DVT prophylaxis: Jose The patient is admitted with an anticipated greater than 2 midnight stay for evaluation of COPD exacerbation CODE STATUS: Full Code Discussed with: Patient Anticipated discharge place: Home Past Medical History Past Medical History: COPD, Deep Vein Thrombosis (DVT), Pulmonary Embolus (PE), Skin Disorder, Thyroid Disorder Additional Past Medical History / Comment(s): DVT & PE's 2022, psoriasis left foot, hernia History of Any Multi-Drug Resistant Organisms: None Reported Past Surgical History: No Surgical Hx Reported Additional Past Surgical History / Comment(s): COLONOSCOPIES Past Anesthesia/Blood Transfusion Reactions: No Reported Reaction Past Psychological History: No Psychological Hx Reported Smoking Status: Current every day smoker Past Alcohol Use History: None Reported Past Drug Use History: None Reported - Past Family History Father Family Medical History: Cancer Additional Family Medical History / Comment(s): LEUKEMIA Mother Family Medical History: Cancer Additional Family Medical History / Comment(s): COLON Medications and Allergies Home Medications Medication Instructions Recorded Confirmed Type Levothyroxine Sodium [Synthroid] 50 mcg PO HS 08/22/21 11/27/23 History Albuterol Inhaler [Ventolin Hfa 2 puff INHALATION RT-QID PRN 01/21/23 11/27/23 History Inhaler] Apixaban [Eliquis Starter Pack 5 mg PO BID 11/22/23 11/27/23 History (for VTE)] Allergies Allergy/AdvReac Type Severity Reaction Status Date / Time Penicillins Allergy Rash/Hives Verified 05/11/24 21:00 Physical Exam Vitals: Vital Signs Temp Pulse Resp BP Pulse Ox 05/12/24 02:00 70 18 90/70 98 05/12/24 00:43 75 18 130/75 96 05/11/24 22:42 84 05/11/24 22:25 77 05/11/24 21:00 99.8 F H 96 18 141/74 96 Intake and Output 05/11/24 05/11/24 05/12/24 14:59 22:59 06:59 Other: Weight 83.007 kg Results CBC & Chem 7: 05/11/24 21:44 05/11/24 21:44 Labs: Abnormal Lab Results - Last 24 Hours (Table) 05/11/24 05/11/24 Range/Units 21:44 21:44 MCV 100.4 H (80.0-100.0) fL Lymphocytes # 0.6 L (1.0-4.8) k/uL Sodium 135 L (137-145) mmol/L Chloride 97 L (98-107) mmol/L Glucose 117 H (74-99) mg/dL
[2024-05-12] MEDS: methylPREDNISolone SOD SUCCI 125 MG/2 ML VIAL IV SCH (06:41)
[2024-05-12] MEDS: IPRATROPIUM-ALBUTEROL 3 ML NEB INHALATION SCH (08:04)
[2024-05-12] MEDS: SYMBICORT 80-4.5 MCG INHALER INHALATION SCH (08:04)
[2024-05-12] MEDS: APIXABAN 5 MG TAB PO SCH (08:23)
[2024-05-12 08:40] LABS: Basophils % (A) 0 %; Eosinophils # (A) 0.1 k/uL (0-0.7); Eosinophils % (A) 1 %; HGB 16.1 gm/dL (13.0-17.5); Lymphocytes # (A) 0.5 k/uL (1.0-4.8); Lymphocytes % (A) 7 %; MCH 31.9 pg (25.0-35.0); MCHC 31.6 g/dL (31.0-37.0); MCV 100.9 fL (80.0-100.0); Mean Platelet Volume 7.1; Monocytes # (A) 0.3 k/uL (0-1.0); Monocytes % (A) 4 %; Neutrophils # (A) 5.7 k/uL (1.3-7.7); Neutrophils % (A) 87 %; Platelet Count 154 k/uL (150-450); RBC 5.05 m/uL (4.30-5.90); RDW 12.8 % (11.5-15.5); WBC 6.6 k/uL (3.8-10.6)
[2024-05-12 08:54] LABS: African American GFR (CKD) >90 (>60 ml/min/1.73 sqM); Anion Gap 9 mmol/L; Blood Urea Nitrogen 19 mg/dL (9-20); Calcium 8.7 mg/dL (8.4-10.2); Carbon Dioxide 26 mmol/L (22-30); Chloride 98 mmol/L (98-107); Glucose 178 mg/dL (74-99); Non-African American GFR(CKD) >90 (>60 ml/min/1.73 sqM); Potassium 5.2 mmol/L (3.5-5.1); Sodium 133 mmol/L (137-145)
[2024-05-12] MEDS ORDERED: predniSONE 20 MG TAB PO SCH (09:00)
[2024-05-12] MEDS ORDERED: DEXTROSE 50% SYRINGE 50 ML IVP PRN ×2 (16:10)
[2024-05-12 16:46] LABS: Glucose,Whole Blood 275 mg/dL (70-110)
[2024-05-12] MEDS: INSULIN LISPRO (HumaLOG) 100 UNIT/ML 10 mL VL SQ SCH (17:11)
[2024-05-12] MEDS ORDERED: DOXYCYCLINE 50 MG CAP PO SCH (21:00)
[2024-05-12] MEDS ORDERED: LEVOTHYROXINE 50 MCG TAB PO SCH (21:00)
[2024-05-12] MEDS ORDERED: DOXYCYCLINE 100 MG TABLET PO SCH (21:00)
[2024-05-12 22:04] LABS: Glucose,Whole Blood 205 mg/dL (70-110)
[2024-05-12] MEDS: DOXYCYCLINE 100 MG TABLET PO SCH (22:29)
[2024-05-12] MEDS: LEVOTHYROXINE 75 MCG TAB PO SCH (22:30)
--- NOTE | 2024-05-13 04:03 | P.CNPUL ---
History of Present Illness Consult date: 05/13/24 Requesting physician: Rodrigue Wilder Reason for consult: COPD Chief complaint: Shortness of breath, cough, wheezing History of present illness: Patient is a 63-year-old male with past medical history significant for COPD, chronic ongoing tobacco dependence. FEV1 is 31% of predicted. Recent low-dose lung CT did not show any clinically significant pulmonary nodules. He follows in the pulmonary office with Dr. Rhodes. Currently on Advair inhaler with as needed albuterol inhaler. Patient also has medical history significant for DVT, pulmonary embolism, and is anticoagulated on Eliquis. Presents to the emergency department on 05/11/2024 with a chief complaint of progressively worsening sh ortness of breath, starting Saturday. Associated cough with white sputum production, wheezing, chest tightness. Does have reports nonlocalized chest soreness and abdominal tenderness predominantly with coughing. States he has hernia. Denies any fevers/chills. Denies sick contacts. Continues to smoke approximately 1 pack/day; however, has not smoked in the last 4 days. 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 Most recent CBC from yesterday: WBC count 6.6, hemoglobin 16.1, hematocrit 51, platelets 154. CMP: Sodium 133, potassium 5.2, chloride 98, serum bicarb 26, BUN 19, creatinine 0.7, glucose 178. Troponin less than 0.012. NT proBNP 108. EKG: Sinus rhythm, rate 83 bpm, no acute ischemic changes noted. Viral screen negative for influenza, RSV, COVID. Patient currently being evaluated on the general medical floor. He is on 2 L/min nasal cannula. Expiratory wheezing heard bilaterally and throughout. Continues on DuoNeb treatments [id number], Symbicort inhaler, and IV Solu-Medrol. Previously started on doxycycline. Afebrile. Vital signs are stable. Review of Systems Constitutional: Denies chills, Denies fatigue, Denies fever, Denies poor appetite, Denies weight gain, Denies weight loss Ears, nose, mouth and throat: Denies headache, Denies nasal congestion, Denies nasal discharge, Denies post-nasal drip, Denies sinus pain, Denies sinus pressure, Denies sore throat Cardiovascular: Denies chest pain, Denies leg edema, Denies lightheadedness, Denies orthopnea, Denies palpitations, Denies paroxysmal nocturnal dyspnea, Denies syncope Respiratory: Reports as per HPI Gastrointestinal: Reports abdominal pain, Denies change in bowel habits, Denies constipation, Denies diarrhea, Denies heartburn, Denies loss of appetite, Denies nausea, Denies vomiting Genitourinary: Denies dysuria Musculoskeletal: Denies limitation of motion Integumentary: Denies rash Neurological: Denies seizures, Denies syncope Psychiatric: Denies anxiety, Denies depression Past Medical History Past Medical History: COPD, Deep Vein Thrombosis (DVT), Pulmonary Embolus (PE), Skin Disorder, Thyroid Disorder Additional Past Medical History / Comment(s): DVT & PE's 2022, psoriasis left foot, hernia History of Any Multi-Drug Resistant Organisms: None Reported Past Surgical History: No Surgical Hx Reported Additional Past Surgical History / Comment(s): COLONOSCOPIES Past Anesthesia/Blood Transfusion Reactions: No Reported Reaction Past Psychological History: No Psychological Hx Reported Smoking Status: Current every day smoker Past Alcohol Use History: None Reported Additional Past Alcohol Use History / Comment(s): SMOKES ABOUT 1 PPD SINCE AGE 18, couple drinks month Past Drug Use History: None Reported - Past Family History Father Family Medical History: Cancer Additional Family Medical History / Comment(s): LEUKEMIA Mother Family Medical History: Cancer Additional Family Medical History / Comment(s): COLON Medications and Allergies Home Medications Medication Instructions Recorded Confirmed Type Albuterol Inhaler [Ventolin Hfa 2 puff INHALATION RT-QID PRN 01/21/23 05/12/24 History Inhaler] Apixaban [Eliquis] 5 mg PO BID 05/12/24 05/12/24 History Fluticasone Propion/Salmeterol 1 puff INHALATION RT-BID 05/12/24 05/12/24 History [Fluticasone-Salmeterol 500-50] Levothyroxine Sodium [Synthroid] 75 mcg PO HS 05/12/24 05/12/24 History Allergies Allergy/AdvReac Type Severity Reaction Status Date / Time Penicillins Allergy Rash/Hives Verified 05/11/24 21:00 Physical Exam Vitals: Vital Signs Temp Pulse Pulse Resp BP BP Pulse Ox 05/13/24 01:26 97.8 F 74 17 146/74 96 05/12/24 21:20 84 02/25/25 21:09 88 05/12/24 18:44 97.9 F 72 17 142/73 96 05/12/24 18:11 98.0 F 68 22 117/58 05/12/24 17:13 69 18 117/67 95 05/12/24 15:30 90 19 122/71 93 L 05/12/24 15:01 68 05/12/24 14:50 72 05/12/24 12:03 97.6 F 76 26 H 145/73 93 L 05/12/24 11:34 72 05/12/24 11:23 68 05/12/24 08:35 97.8 F 88 22 103/52 95 05/12/24 08:17 68 05/12/24 08:05 64 05/12/24 06:42 75 20 115/96 96 05/12/24 05:00 58 L 20 98/70 95 Intake and Output 05/12/24 05/12/24 05/13/24 14:59 22:59 06:59 Other: Weight 83.007 kg GENERAL EXAM: Alert, 63-year-old white male, sitting up in bed, comfortable in no apparent distress. HEAD: Normocephalic and atraumatic EYES: Normal reaction of pupils, equal size. NOSE: Clear with pink turbinates. THROAT: No erythema or exudates. NECK: No masses, no JVD. CHEST: No chest wall deformity. LUNGS: Equal air entry with expiratory wheezing heard bilaterally and throughout. On 2 L/min nasal cannula. No conversational dyspnea or accessory muscle use.. CVS: S1 and S2 normal with no audible murmur, regular rhythm. No extra heart sounds ABDOMEN: No hepatosplenomegaly, active bowel sounds, no guarding or rigidity. SPINE: No scoliosis or deformity SKIN: No rashes CENTRAL NERVOUS SYSTEM: No focal deficits, tone is normal in all 4 extremities. EXTREMITIES: There is no peripheral edema, clubbing, or cyanosis. Peripheral pulses are intact. Results - Laboratory Findings CBC and BMP: 05/12/24 08:26 05/12/24 08:26 PT/INR, D-dimer PT 10.7 sec (10.0-12.5) 05/11/24 21:44 INR 1.0 (<1.2) 05/11/24 21:44 Abnormal lab findings: Abnormal Labs 05/11/24 05/11/24 05/12/24 21:44 21:44 08:26 MCV 100.4 H Lymphocytes # 0.6 L Sodium 135 L 133 L Potassium 5.2 H Chloride 97 L Glucose 117 H 178 H POC Glucose (mg/dL) 05/12/24 05/12/24 05/12/24 08:26 16:44 22:03 MCV 100.9 H Lymphocytes # 0.5 L Sodium Potassium Chloride Glucose POC Glucose (mg/dL) 275 H 205 H - Diagnostic Findings Chest x-ray: image reviewed Assessment and Plan Assessment: Acute COPD exacerbation Acute hypoxemic respiratory failure, on 2 L/min nasal cannula, secondary to above Chronic ongoing tobacco dependence Severe chronic obstructive pulmonary disease, with an FEV1 31% of predicted, currently on Advair and as needed albuterol inhaler on an outpatient basis History of PE/DVT, anticoagulated on Eliquis History of hypothyroidism Hyperglycemia, previous diagnosis of diabetes, likely secondary to high-dose steroids Plan: Patient's medications, labs, chest x-ray reviewed No focal infiltrates or evidence of pneumonia, pleural effusion, or pneumothoraces Continue supplemental oxygen to maintain oxygen saturation 92% or greater Continue combination of albuterol nebs, Symbicort inhaler, Spiriva, and IV Solu- Medrol Viral 4 Plex negative for influenza, RSV, COVID Previously started on doxycycline Smoking cessation counseling performed Patient's not interested in nicotine patch Eliquis is continued GI prophylaxis: Pepcid We will continue to follow I have personally seen and examined the patient, performed the documentation and the assessment and plan as written. Number of minutes spent on the visit:20 \ Time with Patient: Greater than 30
[2024-05-13 04:27] LABS: Basophils % (A) 0 %; Eosinophils % (A) 0 %; HCT 49.3 % (39.0-53.0); HGB 15.5 gm/dL (13.0-17.5); Lymphocytes # (A) 0.5 k/uL (1.0-4.8); Lymphocytes % (A) 3 %; MCH 31.8 pg (25.0-35.0); MCHC 31.4 g/dL (31.0-37.0); MCV 101.2 fL (80.0-100.0); Mean Platelet Volume 7.3; Monocytes # (A) 0.6 k/uL (0-1.0); Monocytes % (A) 4 %; Neutrophils % (A) 92 %; Platelet Count 148 k/uL (150-450); RBC 4.87 m/uL (4.30-5.90); RDW 12.7 % (11.5-15.5); WBC 15.2 k/uL (3.8-10.6)
[2024-05-13 04:50] LABS: African American GFR (CKD) >90 (>60 ml/min/1.73 sqM); Anion Gap 7 mmol/L; Blood Urea Nitrogen 23 mg/dL (9-20); Calcium 9.1 mg/dL (8.4-10.2); Carbon Dioxide 27 mmol/L (22-30); Chloride 98 mmol/L (98-107); Glucose 166 mg/dL (74-99); Non-African American GFR(CKD) 89 (>60 ml/min/1.73 sqM); Potassium 4.9 mmol/L (3.5-5.1); Sodium 132 mmol/L (137-145)
[2024-05-13 06:36] LABS: Glucose,Whole Blood 156 mg/dL (70-110)
[2024-05-13] MEDS: FAMOTIDINE 20 MG TAB PO SCH (08:13)
[2024-05-13] MEDS: SYMBICORT 160-4.5 MCG INHALER INHALATION SCH (08:43)
[2024-05-13 11:38] LABS: Glucose,Whole Blood 189 mg/dL (70-110)
--- NOTE | 2024-05-13 16:22 | P.PN ---
Subjective Progress Note Date: 05/13/24 Patient is a 63-year-old male with a PMH of COPD, history of DVT and PE on Eliquis, and hypothyroidism who presents to the emergency room with complaints of shortness of breath and cough. Patient reports that over the past few days, he has been experiencing progressively worsening cough productive of white and clear phlegm along with shortness of breath. Denies experiencing chest discomfort, lower extremity swelling, lower extremity pain, nausea, vomiting, diaphoresis, or dizziness. Reports using his inhalers multiple times at home without significant relief. Chest x-ray in the emergency room revealed findings of COPD. EKG revealed sinus rhythm with short MT interval at [address]/T wave changes noted as reviewed by me. Laboratory evaluation revealed a troponin less than 0.012, proBNP 108, sodium 135, chloride 97, glucose 117, with WBC count 8.5 and MCV 100.4. Respiratory viral panel was negative. 05/12/2024 Patient seen and examined at bedside. No new complaints. Noted improvement of cough. Expiratory wheezing in middle and lower lung nina. WBC 6.6, hemoglobin 16.1, MCV 100.9, sodium 133, potassium 5.2, chloride 98, bicarb 26, BUN 19, creatinine 0.97, glucose 176, calcium 8.7 05/13/2024 patient seen and examined at bedside. No acute events overnight. Patient reported that he still feels short of breath and his cough still persist. Comfortable on 2L nasal cannula. Labs today showed WBC 15.2, hemoglobin 15.5, MCV 101.2, platelet count 1 48,000, sodium 132, potassium 4.9, chloride 98, bicarb 27, BUN 23, creatinine 0.91, glucose 89, calcium 9.1. Review of systems: Pertinent positives and negatives as discussed in HPI, a complete review of systems was performed and all other systems are negative. Pertinent imaging and labs reviewed. Physical examination: Vital signs reviewed General: non toxic, no distress, appears at stated age, on nasal cannula Derm: no unusual rashes/lesions, warm Head: atraumatic, normocephalic, symmetric Eyes: EOMI, anicteric sclera, pupils equal round reactive to light ENT: Nose and ears atraumatic Neck: No cervical lymphadenopathy, trachea midline, supple Mouth: no lip lesion, mucus membranes moist Cardiovascular: S1S2 reg, no murmur Lungs: diffuse exp wheezing, no rhonchi, no rales, no accessory muscle use Abdominal: soft, nontender to palpation, no guarding Ext: muscle strength 5 out of 5 in all 4 extremities grossly, no gross muscle atrophy, no contractures, positive dorsalis pedis pulse bilateral, no edema Neuro: CN II-XI grossly intact, no gross focal neuro deficits Psych: Alert and oriented x3, appropriate affect and mood Assessment/Plan: 63-year-old male with past medical of COPD not on home oxygen here for management of COPD in exacerbation. #. Acute COPD exacerbation -Chest x-ray on admission showed COPD changes with no acute cardiopulmonary process -Respiratory viral panel negative -Supplemental oxygenation as needed -Continue with Solu-Medrol 60 mg IV every 6 hourly -Continue DuoNebs [id number] and as needed -Resume home Symbicort twice daily -Doxycycline discontinued, unclear utility -Pulmonology consulted #. Current nicotine dependence -Patient was counseled on smoking cessation -Offered nicotine patch and patient agreed Chronic: #. History of DVT and pulmonary embolism #. Hypothyroidism -Resume home Eliquis 5 mg p.o. twice daily -Resume Synthroid 75 mcg p.o. daily F: Oral intake E: None for now N: Regular diet A: Can self ambulate DVT prophylaxis: Eliquis 5 mg p.o. twice daily GI prophylaxis: Pepcid 20 mg p.o. daily Shikha Guo MD PGY-1/Bulk Intake Worker Dictation was produced using [employer] dictation software. please excuse any grammatical, word or spelling errors. I have seen and evaluated the patient today. Discussed with the resident and agree with the residents finding and plan as documented in the resident's note. Changes highlighted in blue font. Objective - Vital Signs Vital signs: Vital Signs Temp 97.8 F 05/13/24 01:26 Pulse 74 05/13/24 01:26 Resp 17 05/13/24 01:26 BP 146/74 05/13/24 01:26 Pulse Ox 96 05/13/24 01:26 FiO2 Intake & Output 05/12/24 05/13/24 05/13/24 18:59 06:59 18:59 Weight 83.007 kg Other: # Voids 1 - Labs CBC & Chem 7: 05/13/24 03:52 05/13/24 03:52 Labs: Abnormal Lab Results - Last 24 Hours (Table) 05/12/24 05/12/24 05/12/24 Range/Units 08:26 08:26 16:44 WBC (3.8-10.6) k/uL MCV 100.9 H (80.0-100.0) fL Plt Count (150-450) k/uL Neutrophils # (1.3-7.7) k/uL Lymphocytes # 0.5 L (1.0-4.8) k/uL Sodium 133 L (137-145) mmol/L Potassium 5.2 H (3.5-5.1) mmol/L BUN (9-20) mg/dL Glucose 178 H (74-99) mg/dL POC Glucose (mg/dL) 275 H (70-110) mg/dL 05/12/24 05/13/24 05/13/24 Range/Units 22:03 03:52 03:52 WBC 15.2 H (3.8-10.6) k/uL MCV 101.2 H (80.0-100.0) fL Plt Count 148 L (150-450) k/uL Neutrophils # 14.0 H (1.3-7.7) k/uL Lymphocytes # 0.5 L (1.0-4.8) k/uL Sodium 132 L (137-145) mmol/L Potassium (3.5-5.1) mmol/L BUN 23 H (9-20) mg/dL Glucose 166 H (74-99) mg/dL POC Glucose (mg/dL) 205 H (70-110) mg/dL 05/13/24 Range/Units 06:35 WBC (3.8-10.6) k/uL MCV (80.0-100.0) fL Plt Count (150-450) k/uL Neutrophils # (1.3-7.7) k/uL Lymphocytes # (1.0-4.8) k/uL Sodium (137-145) mmol/L Potassium (3.5-5.1) mmol/L BUN (9-20) mg/dL Glucose (74-99) mg/dL POC Glucose (mg/dL) 156 H (70-110) mg/dL
[2024-05-13 17:20] LABS: Glucose,Whole Blood 254 mg/dL (70-110)
[2024-05-13 20:39] LABS: Glucose,Whole Blood 293 mg/dL (70-110)
[2024-05-14 05:13] LABS: Basophils % (A) 0 %; Eosinophils % (A) 0 %; HCT 47.7 % (39.0-53.0); HGB 14.9 gm/dL (13.0-17.5); Lymphocytes # (A) 0.4 k/uL (1.0-4.8); Lymphocytes % (A) 3 %; MCH 31.7 pg (25.0-35.0); MCHC 31.2 g/dL (31.0-37.0); MCV 101.6 fL (80.0-100.0); Macrocytosis Slight; Mean Platelet Volume 7.8; Monocytes # (A) 0.6 k/uL (0-1.0); Monocytes % (A) 5 %; Neutrophils % (A) 92 %; Platelet Count 161 k/uL (150-450); RBC 4.69 m/uL (4.30-5.90); RDW 13.2 % (11.5-15.5); WBC 13.1 k/uL (3.8-10.6)
[2024-05-14 05:25] LABS: African American GFR (CKD) >90 (>60 ml/min/1.73 sqM); Anion Gap 7 mmol/L; Blood Urea Nitrogen 23 mg/dL (9-20); Calcium 8.4 mg/dL (8.4-10.2); Carbon Dioxide 27 mmol/L (22-30); Chloride 99 mmol/L (98-107); Glucose 230 mg/dL (74-99); Non-African American GFR(CKD) >90 (>60 ml/min/1.73 sqM); Potassium 4.5 mmol/L (3.5-5.1); Sodium 133 mmol/L (137-145)
[2024-05-14 06:22] LABS: Glucose,Whole Blood 204 mg/dL (70-110)
[2024-05-14 11:22] LABS: Glucose,Whole Blood 171 mg/dL (70-110)
--- NOTE | 2024-05-14 13:28 | P.PN ---
Subjective Progress Note Date: 05/14/24 Patient is a 63-year-old male with past medical history significant for COPD, chronic ongoing tobacco dependence. FEV1 is 31% of predicted. Recent low-dose lung CT did not show any clinically significant pulmonary nodules. He follows in the pulmonary office with Dr. Rhodes. Currently on Advair inhaler with as needed albuterol inhaler. Patient also has medical history significant for DVT, pulmonary embolism, and is anticoagulated on Eliquis. Presents to the emergency department on 05/11/2024 with a chief complaint of progressively worsening shortness of breath, starting Saturday. Associated cough with white sputum production, wheezing, chest tightness. Does have reports nonlocalized chest soreness and abdominal tenderness predominantly with coughing. States he has hernia. Denies any fevers/chills. Denies sick contacts. Continues to smoke approximately 1 pack/day; however, has not smoked in the last 4 days. 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 Most recent CBC from yesterday: WBC count 6.6, hemoglobin 16.1, hematocrit 51, platelets 154. CMP: Sodium 133, potassium 5.2, chloride 98, serum bicarb 26, BUN 19, creatinine 0.7, glucose 178. Troponin less than 0.012. NT proBNP 108. EKG: Sinus rhythm, rate 83 bpm, no acute ischemic changes noted. Viral screen negative for influenza, RSV, COVID. Patient currently being evaluated on the general medical floor. He is on 2 L/min nasal cannula. Expiratory wheezing heard bilaterally and throughout. Continues on DuoNeb treatments [id number], Symbicort inhaler, and IV Solu-Medrol. Previously started on doxycycline. Afebrile. Vital signs are stable. The patient is seen today May 14, 2024 in follow-up on the regular medical floor. He is currently sitting up in a chair. Awake and alert in no acute distress. He was having some issues with nausea and vomiting. He was also having a bloody nose. He is maintaining good O2 saturations in the 90s on 2 L/min per nasal cannula. White count 13.1. Hemoglobin 14.9. Platelets 161. Sodium 133. Potassium 4.5. Bicarb 27. BUN 23. Creatinine 0.83. Glucose 230. He remains on DuoNeb inhalations, Symbicort, Solu-Medrol. Anticoagulated with Eliquis. Objective - Vital Signs Vital signs: Vital Signs Temp 98.1 F 05/14/24 08:00 Pulse 88 05/14/24 10:54 Resp 18 05/14/24 10:54 BP 120/62 05/14/24 08:00 Pulse Ox 95 05/14/24 10:40 FiO2 Intake & Output 05/13/24 05/14/24 05/14/24 18:59 06:59 18:59 Other: # Voids 3 2 2 - Exam GENERAL EXAM: Alert, pleasant 63-year-old male, up in a chair, on 2 L nasal cannula, comfortable in no apparent distress. HEAD: Normocephalic. EYES: Normal reaction of pupils, equal size. NOSE: Clear with pink turbinates. THROAT: No erythema or exudates. NECK: No masses, no JVD. CHEST: No chest wall deformity. LUNGS: Equal air entry with bilateral wheeze, diminished. CVS: S1 and S2 normal with no audible murmur, regular rhythm. ABDOMEN: No hepatosplenomegaly, normal bowel sounds, no guarding or rigidity. SPINE: No scoliosis or deformity SKIN: No rashes CENTRAL NERVOUS SYSTEM: No focal deficits, tone is normal in all 4 extremities. EXTREMITIES: There is no peripheral edema. No clubbing, no cyanosis. Peripheral pulses are intact. - Labs CBC & Chem 7: 05/14/24 04:05 05/14/24 04:05 Labs: Abnormal Lab Results - Last 24 Hours (Table) 05/13/24 05/13/24 05/14/24 Range/Units 17:19 20:36 04:05 WBC 13.1 H (3.8-10.6) k/uL MCV 101.6 H (80.0-100.0) fL Neutrophils # 12.0 H (1.3-7.7) k/uL Lymphocytes # 0.4 L (1.0-4.8) k/uL Sodium (137-145) mmol/L BUN (9-20) mg/dL Glucose (74-99) mg/dL POC Glucose (mg/dL) 254 H 293 H (70-110) mg/dL 05/14/24 05/14/24 05/14/24 Range/Units 04:05 06:18 11:20 WBC (3.8-10.6) k/uL MCV (80.0-100.0) fL Neutrophils # (1.3-7.7) k/uL Lymphocytes # (1.0-4.8) k/uL Sodium 133 L (137-145) mmol/L BUN 23 H (9-20) mg/dL Glucose 230 H (74-99) mg/dL POC Glucose (mg/dL) 204 H 171 H (70-110) mg/dL Assessment and Plan Assessment: Acute COPD exacerbation Acute hypoxemic respiratory failure, on 2 L/min nasal cannula, secondary to above Chronic ongoing tobacco dependence Severe chronic obstructive pulmonary disease, with an FEV1 31% of predicted, currently on Advair and as needed albuterol inhaler on an outpatient basis History of PE/DVT, anticoagulated on Eliquis History of hypothyroidism Hyperglycemia, previous diagnosis of diabetes, likely secondary to high-dose steroids Plan: The patient was seen and evaluated Labs and medications reviewed Continue bronchodilators, steroids Titrate down the FiO2 as tolerated Probable discharge in the a.m. I have personally seen and examined the patient, performed the documentation and the assessment and plan as written. Number of minutes spent on the visit: 10 Dictation was produced using [employer] dictation software. Please excuse any grammatical, word or spelling errors.
--- NOTE | 2024-05-14 14:51 | P.PN ---
Subjective Progress Note Date: 05/14/24 Patient is a 63-year-old male with a PMH of COPD, history of DVT and PE on Eliquis, and hypothyroidism who presents to the emergency room with complaints of shortness of breath and cough. Patient reports that over the past few days, he has been experiencing progressively worsening cough productive of white and clear phlegm along with shortness of breath. Denies experiencing chest discomfort, lower extremity swelling, lower extremity pain, nausea, vomiting, diaphoresis, or dizziness. Reports using his inhalers multiple times at home without significant relief. Chest x-ray in the emergency room revealed findings of COPD. EKG revealed sinus rhythm with short MN interval at [address]/T wave changes noted as reviewed by me. Laboratory evaluation revealed a troponin less than 0.012, proBNP 108, sodium 135, chloride 97, glucose 117, with WBC count 8.5 and MCV 100.4. Respiratory viral panel was negative. 05/12/2024 Patient seen and examined at bedside. No new complaints. Noted improvement of cough. Expiratory wheezing in middle and lower lung nina. WBC 6.6, hemoglobin 16.1, MCV 100.9, sodium 133, potassium 5.2, chloride 98, bicarb 26, BUN 19, creatinine 0.97, glucose 176, calcium 8.7 05/13/2024 patient seen and examined at bedside. No acute events overnight. Patient reported that he still feels short of breath and his cough still persist. Comfortable on 2L nasal cannula. Labs today showed WBC 15.2, hemoglobin 15.5, MCV 101.2, platelet count 1 48,000, sodium 132, potassium 4.9, chloride 98, bicarb 27, BUN 23, creatinine 0.91, glucose 89, calcium 9.1. 05/14/2024 patient seen and examined at bedside. No acute events overnight. No new complaints. Still having productive cough. Labs today show WBC 13.1, hemoglobin 14.9, MCV 101.6, platelet count 1 61,000, sodium 133, potassium 4.5, chloride 99, bicarb 27, BUN 23, creatinine 0.83, glucose 230, calcium 8.4 Review of systems: Pertinent positives and negatives as discussed in HPI, a complete review of systems was performed and all other systems are negative. Pertinent imaging and labs reviewed. Physical examination: Vital signs reviewed General: non toxic, no distress, appears at stated age, on room air Derm: no unusual rashes/lesions, warm Head: atraumatic, normocephalic, symmetric Eyes: EOMI, anicteric sclera, pupils equal round reactive to light ENT: Nose and ears atraumatic Neck: No cervical lymphadenopathy, trachea midline, supple Mouth: no lip lesion, mucus membranes moist Cardiovascular: S1S2 reg, no murmur Lungs: bibasilar expiratory wheezing, no rhonchi, no rales, no accessory muscle use Abdominal: soft, nontender to palpation, no guarding Ext: muscle strength 5 out of 5 in all 4 extremities grossly, no gross muscle atrophy, no contractures, positive dorsalis pedis pulse bilateral, no edema Neuro: CN II-XI grossly intact, no gross focal neuro deficits Psych: Alert and oriented x3, appropriate affect and mood Assessment/Plan: 63-year-old male with past medical of COPD not on home oxygen here for management of COPD in exacerbation. #. Acute COPD exacerbation, GOLD C #. Acute hypoxemic respiraotry failure secondary to above -Chest x-ray on admission showed COPD changes with no acute cardiopulmonary process -Respiratory viral panel negative -Supplemental oxygenation as needed -Discontinued Solu-Medrol 60 mg IV every 6 hourly -start Prednisone 40mg PO daily -Continue DuoNebs [id number] and as needed -Resume home Symbicort twice daily -Doxycycline discontinued as there is no benefit -Pulmonology consulted -Recommend send home with spiriva/incluse inhaler on discharge #. Current nicotine dependence -Patient was counseled on smoking cessation -Recommended nicotine patch #. Hyperglycemia -Present on admission -No history of diabetes -Check A1c -Currently on NovoLog ISS ACHS Chronic: #. History of DVT and pulmonary embolism #. Hypothyroidism -Resume home Eliquis 5 mg p.o. twice daily -Resume Synthroid 75 mcg p.o. daily F: Oral intake E: None for now N: Regular diet A: Can self ambulate DVT prophylaxis: Eliquis 5 mg p.o. twice daily GI prophylaxis: Pepcid 20 mg p.o. daily Shikha Guo MD PGY-1/Tufting Machine Operator Dictation was produced using [employer] dictation software. please excuse any grammatical, word or spelling errors. I have seen and evaluated the patient today. Discussed with the resident and agree with the residents finding and plan as documented in the resident's note. Changes highlighted in blue font. Objective - Vital Signs Vital signs: Vital Signs Temp 98.7 F 05/14/24 01:18 Pulse 77 05/14/24 01:18 Resp 18 05/14/24 01:18 BP 99/54 05/14/24 01:18 Pulse Ox 94 L 05/14/24 01:18 FiO2 Intake & Output 05/13/24 05/13/24 05/14/24 06:59 18:59 06:59 Other: # Voids 1 3 2 - Labs CBC & Chem 7: 05/14/24 04:05 05/14/24 04:05 Labs: Abnormal Lab Results - Last 24 Hours (Table) 05/13/24 05/13/24 05/13/24 Range/Units 11:34 17:19 20:36 WBC (3.8-10.6) k/uL MCV (80.0-100.0) fL Neutrophils # (1.3-7.7) k/uL Lymphocytes # (1.0-4.8) k/uL Sodium (137-145) mmol/L BUN (9-20) mg/dL Glucose (74-99) mg/dL POC Glucose (mg/dL) 189 H 254 H 293 H (70-110) mg/dL 05/14/24 05/14/24 05/14/24 Range/Units 04:05 04:05 06:18 WBC 13.1 H (3.8-10.6) k/uL MCV 101.6 H (80.0-100.0) fL Neutrophils # 12.0 H (1.3-7.7) k/uL Lymphocytes # 0.4 L (1.0-4.8) k/uL Sodium 133 L (137-145) mmol/L BUN 23 H (9-20) mg/dL Glucose 230 H (74-99) mg/dL POC Glucose (mg/dL) 204 H (70-110) mg/dL
[2024-05-14 17:24] LABS: Glucose,Whole Blood 203 mg/dL (70-110)
[2024-05-14 21:55] LABS: Glucose,Whole Blood 220 mg/dL (70-110)
[2024-05-15 06:21] LABS: Glucose,Whole Blood 93 mg/dL (70-110)
[2024-05-15 07:23] LABS: Basophils % (A) 0 %; Eosinophils % (A) 0 %; HCT 49.6 % (39.0-53.0); HGB 15.3 gm/dL (13.0-17.5); Hypochromasia Slight; Lymphocytes # (A) 0.8 k/uL (1.0-4.8); Lymphocytes % (A) 10 %; MCH 31.7 pg (25.0-35.0); MCHC 30.8 g/dL (31.0-37.0); Macrocytosis Slight; Mean Platelet Volume 7.1; Monocytes # (A) 0.6 k/uL (0-1.0); Monocytes % (A) 8 %; Neutrophils # (A) 6.5 k/uL (1.3-7.7); Neutrophils % (A) 81 %; Platelet Count 155 k/uL (150-450); RBC 4.81 m/uL (4.30-5.90)
[2024-05-15 07:52] LABS: African American GFR (CKD) >90 (>60 ml/min/1.73 sqM); Anion Gap 6 mmol/L; Blood Urea Nitrogen 18 mg/dL (9-20); Calcium 8.4 mg/dL (8.4-10.2); Carbon Dioxide 33 mmol/L (22-30); Chloride 100 mmol/L (98-107); Glucose 86 mg/dL (74-99); Non-African American GFR(CKD) 85 (>60 ml/min/1.73 sqM); Potassium 4.2 mmol/L (3.5-5.1); Sodium 139 mmol/L (137-145)
[2024-05-15] MEDS: predniSONE 20 MG TAB PO SCH (08:07)
[2024-05-15 09:28] VITALS: RESP 18
[2024-05-15 09:36] VITALS: PULSE 68
[2024-05-15 09:48] VITALS: BP 122/77; TEMP 98.8
--- NOTE | 2024-05-15 12:11 | P.DS ---
Providers Date of admission: 05/12/24 00:05 Expected date of discharge: 05/15/24 Attending physician: Carolina Keith MD Consults: 05/12/24 01:07 Consult Physician Routine Consulting Provider: Qamar Rhodes Reason/Comments: your patient. COPD exacerbation Do you want consulting provider notified?: Yes Primary care physician: [facility] Course: Hospital Course: Patient is a 63-year-old male with a PMH of COPD, history of DVT and PE on Eliquis, and hypothyroidism who presents to the emergency room with complaints of shortness of breath and cough. Patient reports that over the past few days, he has been experiencing progressively worsening cough productive of white and clear phlegm along with shortness of breath. Denies experiencing chest discomfort, lower extremity swelling, lower extremity pain, nausea, vomiting, diaphoresis, or dizziness. Reports using his inhalers multiple times at home without significant relief. Chest x-ray in the emergency room revealed findings of COPD. EKG revealed sinus rhythm with short SD interval at [address]/T wave changes noted as reviewed by me. Laboratory evaluation revealed a troponin less than 0.012, proBNP 108, sodium 135, chloride 97, glucose 117, with WBC count 8.5 and MCV 100.4. Respiratory viral panel was negative. Patient is admitted for acute COPD exacerbation with acute hypoxic respiratory failure. Ordered Solu-Medrol IV, DuoNebs [id number] and as needed, Symbicort, and supplemental oxygenation as needed. Pulmonology consulted. Patient had hyperglycemia on admission. A1c ordered and showed as elevated. Patient symptoms improved throughout hospital stay. No new complications occurred throughout hospital stay. Patient is cleared for discharge today with prednisone p.o., Spiriva inhaler, metformin, and Pepcid. Patient advised to continue the rest of home medications. Patient advised to follow-up with PCP on outpatient basis. Final Diagnosis: #. Acute COPD exacerbation, GOLD C, resolved #. Acute hypoxemic respiraotry failure, resolved #. Current nicotine dependence #. Type 2 diabetes mellitus #. History of DVT and pulmonary embolism #. Hypothyroidism Physical examination: Vital signs reviewed General: non toxic, no distress Derm: no unusual rashes/lesions, warm Head: atraumatic, normocephalic, symmetric Eyes: EOMI, anicteric sclera, pupils equal round reactive to light ENT: Nose and ears atraumatic Neck: No cervical lymphadenopathy, trachea midline, supple Mouth: no lip lesion, mucus membranes moist Cardiovascular: S1S2 reg, no murmur Lungs: bibasilar expiratory wheezing noted, no rhonchi, no rales, no accessory muscle use Abdominal: soft, nondistended, nontender to palpation, no guarding Ext: muscle strength 5 out of 5 in all 4 extremities grossly, no gross muscle atrophy, no contractures, positive dorsalis pedis pulse bilateral, no edema Neuro: CN II-XI grossly intact, no gross focal neuro deficits Psych: Alert, oriented, appropriate affect and mood A total of 38 minutes of time were spent preparing this complex discharge summary. Patient was discharged on 05/15/2024 at 926. I have seen and evaluated the patient today. Discussed with the resident and agree with the residents finding and plan as documented in the resident's note. Changes highlighted in blue font. Patient Condition at Discharge: Stable Plan - Discharge Summary Discharge Rx Participant: Yes New Discharge Prescriptions: New predniSONE [Deltasone] 40 mg PO DAILY #2 tab Tiotropium 18 Mcg/Puff [Spiriva] 2 puff INHALATION DAILY #30 each metFORMIN HCL [Glucophage] 500 mg PO BID #90 tab Famotidine [Pepcid] 20 mg PO DAILY #14 tab Continue Albuterol Inhaler [Ventolin Hfa Inhaler] 2 puff INHALATION RT-QID PRN PRN Reason: Shortness Of Breath Apixaban [Eliquis] 5 mg PO BID Fluticasone Propion/Salmeterol [Fluticasone-Salmeterol 500-50] 1 puff INHALATION RT-BID Levothyroxine Sodium [Synthroid] 75 mcg PO HS Discharge Medication List Albuterol Inhaler [Ventolin Hfa Inhaler] 2 puff INHALATION RT-QID PRN 01/21/23 [History] Apixaban [Eliquis] 5 mg PO BID 05/12/24 [History] Fluticasone Propion/Salmeterol [Fluticasone-Salmeterol 500-50] 1 puff INHALATION RT-BID 05/12/24 [History] Levothyroxine Sodium [Synthroid] 75 mcg PO HS 05/12/24 [History] Famotidine [Pepcid] 20 mg PO DAILY #14 tab 05/15/24 [Rx] Tiotropium 18 Mcg/Puff [Spiriva] 2 puff INHALATION DAILY #30 each 05/15/24 [Rx] metFORMIN HCL [Glucophage] 500 mg PO BID #90 tab 05/15/24 [Rx] predniSONE [Deltasone] 40 mg PO DAILY #2 tab 05/15/24 [Rx] Follow up Appointment(s)/Referral(s): [facility],Clinic [REFERRING] - 05/20/24 9:00 am Patient Instructions/Handouts: Type 2 Diabetes in Adults: New Diagnosis (DC), COPD (Chronic Obstructive Pulmonary Disease) (DC) Activity/Diet/Wound Care/Special Instructions: Please follow up with your PCP Discharge Disposition: HOME SELF-CARE
--- NOTE | 2024-05-15 12:46 | P.PN ---
Subjective Progress Note Date: 05/15/24 Principal diagnosis: Acute exacerbation of COPD Patient is a 63-year-old male with past medical history significant for COPD, chronic ongoing tobacco dependence. FEV1 is 31% of predicted. Recent low-dose lung CT did not show any clinically significant pulmonary nodules. He follows in the pulmonary office with Dr. Rhodes. Currently on Advair inhaler with as needed albuterol inhaler. Patient also has medical history significant for DVT, pulmonary embolism, and is anticoagulated on Eliquis. Presents to the emergency department on 05/11/2024 with a chief complaint of progressively worsening shortness of breath, starting Saturday. Associated cough with white sputum produc tion, wheezing, chest tightness. Does have reports nonlocalized chest soreness and abdominal tenderness predominantly with coughing. States he has hernia. Denies any fevers/chills. Denies sick contacts. Continues to smoke approximately 1 pack/day; however, has not smoked in the last 4 days. 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 Most recent CBC from yesterday: WBC count 6.6, hemoglobin 16.1, hematocrit 51, platelets 154. CMP: Sodium 133, potassium 5.2, chloride 98, serum bicarb 26, BUN 19, creatinine 0.7, glucose 178. Troponin less than 0.012. NT proBNP 108. EKG: Sinus rhythm, rate 83 bpm, no acute ischemic changes noted. Viral screen negative for influenza, RSV, COVID. Patient currently being evaluated on the general medical floor. He is on 2 L/min nasal cannula. Expiratory wheezing heard bilaterally and throughout. Continues on DuoNeb treatments [id number], Symbicort inhaler, and IV Solu-Medrol. Previously started on doxycycline. Afebrile. Vital signs are stable. The patient is seen today May 14, 2024 in follow-up on the regular medical floor. He is currently sitting up in a chair. Awake and alert in no acute distress. He was having some issues with nausea and vomiting. He was also having a bloody nose. He is maintaining good O2 saturations in the 90s on 2 L/min per nasal cannula. White count 13.1. Hemoglobin 14.9. Platelets 161. Sodium 133. Potassium 4.5. Bicarb 27. BUN 23. Creatinine 0.83. Glucose 230. He remains on DuoNeb inhalations, Symbicort, Solu-Medrol. Anticoagulated with Eliquis. Patient was seen today on 05/15/2024, patient is doing much better today, breathing a lot easier, hardly any cough no wheezing no shortness of breath no chest pain, patient believes that he is back to his baseline. Hence discharge planning is in progress on this patient. Labs today showed relatively normal CBC, normal electrolytes, normal renal profile Objective - Vital Signs Vital signs: Vital Signs Temp 98.8 F 05/15/24 07:03 Pulse 68 05/15/24 09:36 Resp 18 05/15/24 09:36 BP 122/77 05/15/24 07:03 Pulse Ox 95 05/15/24 09:24 FiO2 Intake & Output 05/14/24 05/15/24 05/15/24 18:59 06:59 18:59 Intake Total 100 2160 Balance 100 2160 Intake: Oral 100 2160 Other: # Voids 2 4 - Exam GENERAL EXAM: 63-year-old white male on room air in no distress HEAD: Normocephalic. EYES: Normal reaction of pupils, equal size. NOSE: Clear with pink turbinates. THROAT: No erythema or exudates. NECK: No masses, no JVD. CHEST: No chest wall deformity. LUNGS: Diminished breath sound bilaterally no rhonchi no wheezes CVS: S1 and S2 normal with no audible murmur, regular rhythm. ABDOMEN: No hepatosplenomegaly, normal bowel sounds, no guarding or rigidity. SKIN: No rashes CENTRAL NERVOUS SYSTEM: Alert oriented x 3 no gross focal deficit EXTREMITIES: No clubbing edema or cyanosis - Labs CBC & Chem 7: 05/15/24 06:45 05/15/24 06:45 Labs: Abnormal Lab Results - Last 24 Hours (Table) 05/14/24 05/14/24 05/14/24 Range/Units 04:05 17:22 21:53 MCV (80.0-100.0) fL MCHC (31.0-37.0) g/dL Lymphocytes # (1.0-4.8) k/uL Carbon Dioxide (22-30) mmol/L POC Glucose (mg/dL) 203 H 220 H (70-110) mg/dL Hemoglobin A1c 7.0 H (<=6.0) % 05/15/24 05/15/24 Range/Units 06:45 06:45 MCV 103.0 H (80.0-100.0) fL MCHC 30.8 L (31.0-37.0) g/dL Lymphocytes # 0.8 L (1.0-4.8) k/uL Carbon Dioxide 33 H (22-30) mmol/L POC Glucose (mg/dL) (70-110) mg/dL Hemoglobin A1c (<=6.0) % Assessment and Plan Assessment: Impression: Acute COPD exacerbation, significantly improved Acute hypoxemic respiratory failure, on 2 L/min nasal cannula, secondary to above, resolved Chronic ongoing tobacco dependence Severe chronic obstructive pulmonary disease, with an FEV1 31% of predicted, currently on Advair and as needed albuterol inhaler on an outpatient basis History of PE/DVT, anticoagulated on Eliquis History of hypothyroidism Hyperglycemia, previous diagnosis of diabetes, likely secondary to high-dose steroids Recommendation: Agree with discharge planning on his usual bronchodilators including albuterol, Trelegy, and prednisone burst and taper Patient to follow-up on outpatient basis. Time with Patient: Less than 30 (11)
== END 2024-05-15 11:04 | disposition home or self-care (01) | DRG 190 ==
LOC: EC 20:54 → 4SSUR 05-12 00:05
PROVIDERS: ADMIT Internal Medicine; ATTEND Internal Medicine
DX: J44.1 Chronic obstructive pulmonary disease with (acute) exacerbation (principal); J96.01 Acute respiratory failure with hypoxia; E11.65 Type 2 diabetes mellitus with hyperglycemia; E03.9 Hypothyroidism, unspecified; F17.210 Nicotine dependence, cigarettes, uncomplicated; R04.0 Epistaxis; T38.0X5A Adverse effect of glucocorticoids and synthetic analogues, initial encounter; Z86.711 Personal history of pulmonary embolism; Z86.718 Personal history of other venous thrombosis and embolism; Z79.01 Long term (current) use of anticoagulants; Z71.6 Tobacco abuse counseling; Z79.890 Hormone replacement therapy; Z79.899 Other long term (current) drug therapy
CPT/HCPCS: 36415; 71046; 80048; 80053; 83036; 83605; 83880; 84484; 85025; 85610; 85730; 87636; 93005; 94640; 94667; 94760; 96374; 96376; 99285

== ENCOUNTER 2024-06-01 11:02 | Day surgery (SDC) | payer OTHER ==
[2024-05-28 15:12] VITALS: BMI 26.5
--- NOTE | 2024-06-01 07:34 | P.GSHP ---
History of Present Illness H&P Date: 06/01/24 Chief Complaint: Incarcerated umbilical hernia 63-year-old male seen in the office in March. Patient actively smoking at the time. Stated that he would quit smoking. Patient with an enlarging umbilical hernia. Pain frequently. No history of prior hernia. Past Medical History Past Medical History: COPD, Diabetes Mellitus, Deep Vein Thrombosis (DVT), Pulmonary Embolus (PE), Skin Disorder, Thyroid Disorder Additional Past Medical History / Comment(s): DVT & PE's 2022, psoriasis left foot History of Any Multi-Drug Resistant Organisms: None Reported Past Surgical History: No Surgical Hx Reported Additional Past Surgical History / Comment(s): COLONOSCOPIES Past Anesthesia/Blood Transfusion Reactions: No Reported Reaction Smoking Status: Former smoker - Past Family History Father Family Medical History: Cancer Additional Family Medical History / Comment(s): LEUKEMIA Mother Family Medical History: Cancer Additional Family Medical History / Comment(s): COLON Medications and Allergies Home Medications Medication Instructions Recorded Confirmed Type Albuterol Inhaler [Ventolin Hfa 2 puff INHALATION RT-QID PRN 01/21/23 05/28/24 History Inhaler] Apixaban [Eliquis] 5 mg PO BID 05/12/24 05/28/24 History Fluticasone Propion/Salmeterol 1 puff INHALATION RT-BID 05/12/24 05/28/24 History [Fluticasone-Salmeterol 500-50] Levothyroxine Sodium [Synthroid] 75 mcg PO HS 05/12/24 05/28/24 History Famotidine [Pepcid] 20 mg PO DAILY #14 tab 05/15/24 05/28/24 Rx Tiotropium 18 Mcg/Puff [Spiriva] 2 puff INHALATION DAILY #30 each 05/15/24 05/28/24 Rx predniSONE [Deltasone] 40 mg PO DAILY #2 tab 05/15/24 05/28/24 Rx Allergies Allergy/AdvReac Type Severity Reaction Status Date / Time Penicillins Allergy Rash/Hives Verified 05/28/24 14:49 Surgical - Exam Physical exam: General: Well-developed, well-nourished HEENT: Normocephalic, sclerae nonicteric Abdomen: Nontender, nondistended, incarcerated umbilical hernia Extremities: No edema Neuro: Alert and oriented Assessment and Plan (1) Incarcerated umbilical hernia Narrative/Plan: Will proceed with open repair incarcerated local hernia with mesh. Risks of bleeding, infection, recurrence, chronic pain, bladder and bowel injury, numbness, scarring, and anesthesia related complications were discussed. The correlation between hernia recurrence, obesity and smoking were reviewed in detail. The patient understands and wishes to proceed. Status: Acute Code(s): K42.0 - UMBILICAL HERNIA WITH OBSTRUCTION, WITHOUT GANGRENE SNOMED Code(s): 365949364
[~2024-06-01 11:02] MED LIST changes: +HYDROmorphone 0.5 MG/0.5 ML SYRINGE IVP PRN; +LACTATED RINGERS 1,000 ML IV SCH; +droPERidol 2.5 MG/ML VIAL IVP ONE
[2024-06-01] MEDS: IV FLUID CONTINUATION 1,000 ML IV ONE (11:10)
[2024-06-01 11:27] LABS: Glucose,Whole Blood 156 mg/dL (70-110)
[2024-06-01] MEDS: ONDANSETRON 4 MG/2 ML VIAL IVP ONE (11:29)
[2024-06-01] MEDS: ACETAMINOPHEN TAB 500 MG TAB PO PRN (11:29)
[2024-06-01] MEDS: DEXAMETHASONE SOD PHOSPHATE 4 MG/ML 1 ML VIAL IV ONE (11:30)
[2024-06-01] MEDS: fentaNYL (PF) 50 MCG/ML 2 ML AMP IVP ONE (11:36)
[2024-06-01] MEDS: MIDAZOLAM 2 MG/2 ML VIAL IVP ONE (11:36)
[2024-06-01] MEDS: HEPARIN SODIUM,PORCINE 5,000 UNIT/ML 1 ML VIAL SQ PRN (11:45)
[2024-06-01] MEDS: HYDROCORTISONE SUCCINATE 100 MG/2 ML VIAL IV STA (11:47)
[2024-06-01] MEDS ORDERED: PROPOFOL 10 MG/ML 20 ML VIAL IV ONE (11:52)
[2024-06-01] MEDS ORDERED: DEXAMETHASONE SOD PHOSPHATE 4 MG/ML 1 ML VIAL ONE (11:52)
[2024-06-01] MEDS ORDERED: ROCURONIUM 10 MG/ML (5 ML VIAL) IV ONE (11:52)
[2024-06-01] MEDS ORDERED: ROPIVACAINE 5 MG/ML 30 ML VIAL ONE (11:52)
[2024-06-01] MEDS ORDERED: GLYCOPYRROLATE 0.2 MG/ML 2 ML VIAL ONE (11:52)
[2024-06-01] MEDS ORDERED: LIDOCAINE 1% INJ 10MG/ML (20 ML MDV) ONE (11:52)
[2024-06-01] MEDS ORDERED: NEOSTIGMINE 1 MG/ML 10 ML VIAL ONE (11:52)
[2024-06-01] MEDS ORDERED: SODIUM CHLORIDE 0.9% (PF) 10 ML VIAL ONE (11:52)
[2024-06-01] MEDS ORDERED: SUCCINYLCHOLINE CHLORIDE 200 MG/10 ML VIAL IV ONE (11:52)
[2024-06-01] MEDS: BUPIVACAINE (PF) 0.25% 30 ML VIAL SQ ONE ×2 (12:18→12:43)
--- NOTE | 2024-06-01 12:49 | P.OP ---
Date of Procedure: 06/01/24 Procedure(s) Performed: PREOPERATIVE DIAGNOSIS: Incarcerated umbilical hernia POSTOPERATIVE DIAGNOSIS: Same PROCEDURE: Open repair incarcerated local hernia with mesh SURGEON: Dr. Coe ANESTHESIA: General EBL: 10 cc OPERATIVE PROCEDURE DETAILS: The patient was placed in the operating table in the supine position. A left sided periumbilical incision was made using the scalpel. The subcutaneous tissues were dissected bluntly and with cautery. The hernia sac was identified. The umbilical attachments to the fascia were divided using electrocautery. The hernia sac was reduced easily. The defect in the fascia measured 1.8 x 1 cm. The fat overlying the fascia was dissected. No additional defects were seen. The preperitoneal space was then dissected using blunt dissection and electrocautery. The 4.3 cm ventral ex mesh was placed beneath the fascia and sutured in place using trans-fascial 0 Ethibond sutures. The defect was closed using interrupted vest over pants 0 Ethibond mattress sutures. The subcutaneous tissues were reapproximated using inverted 2-0 & 3-0 Vicryl sutures. The umbilicus was tacked back down to the fascia using a 2-0 Vicryl suture. The skin was closed using 4-0 Monocryl sutures. Skin glue and sterile dressings were then applied. HERNIA CHARACTERISTICS: Length: 1 cm Width: 1.8 cm Type: Incarcerated umbilical TYPE OF MESH USED: 4.3 cm Ventralex LOCATION OF MESH: Sublay extraperitoneal FIXATION: 0 Ethibond PREOPERATIVE DISCUSSION ON SMOKING CESSASTION: Yes PREOPERATIVE DISCUSSION ON MORBID OBESITY: Yes PREOPERATIVE DISCUSSION ON APPROPRIATE USE OF NARCOTIC USE: Yes PREOPERATIVE EDUCATION: Multi Modal, Smoking Cessation and Weight Loss with BMI over 35. DISPOSITION: Stable to recovery room
[2024-06-01 12:59] VITALS: TEMP 97
[2024-06-01 13:07] VITALS: RESP 16
[2024-06-01 13:58] VITALS: BP 119/69; PULSE 56
--- NOTE | 2024-06-01 13:58 | P.ANPRN ---
Procedure Note - Anesthesia - Nerve Block Performed Bilateral Rectus Abdominis Single Time Out Performed: Yes ([id number]) Date of Procedure: 06/01/24 Procedure Start Time: 11:36 Procedure Stop Time: 11:41 Location of Patient: PreOp Indication: Acute Post-Operative Pain, Requested by Surgeon Specifically requested for management of pain by DrKhoi: Dontae Coe Sedation Type: Sedate with meaningful contact maintained Preparation: Sterile Prep Position: Supine Catheter: None Needle Types: Pajunk Needle Gauge: 21 Ultrasound used to visualize needle placement: Yes Ultrasound used to observe medication spread: Yes Injectate: 0.5% Ropivacaine (see comment for volume) (15cc+10cc nacl pf+decadron 4mg each side) Blood Aspirated: No Pain Paresthesia on Injection Noted: No Resistance on Injection: Normal Image Stored and Saved: Yes Events: Uneventful and Well Tolerated
[2024-06-01] MEDS ORDERED: IBUPROFEN 600 MG TAB PO SCH (16:00)
[2024-06-01] MEDS ORDERED: ACETAMINOPHEN TAB 325 MG TAB PO SCH (18:00)
== END 2024-06-01 14:25 | disposition home or self-care (01) ==
LOC: OR 11:02
PROVIDERS: ATTEND Surgery
DX: K42.0 Umbilical hernia with obstruction, without gangrene (principal); G89.18 Other acute postprocedural pain; E11.9 Type 2 diabetes mellitus without complications; J44.9 Chronic obstructive pulmonary disease, unspecified; E07.9 Disorder of thyroid, unspecified; F17.200 Nicotine dependence, unspecified, uncomplicated; Z79.01 Long term (current) use of anticoagulants; Z79.51 Long term (current) use of inhaled steroids; Z79.890 Hormone replacement therapy; Z79.52 Long term (current) use of systemic steroids; Z79.899 Other long term (current) drug therapy; Z86.711 Personal history of pulmonary embolism; Z86.718 Personal history of other venous thrombosis and embolism; Z88.0 Allergy status to penicillin
CPT/HCPCS: 49592; 64488; C1781; J2250; J0330; J1644; J1100; J2710; J1720; J0690; J2405; J2003; J3010; J2795; J2704; J0665; J1596; 64468